=== PATIENT | female | born 1965 | race Caucasian/White ===

== ENCOUNTER 2017-01-11 08:06 | Emergency (ER) | payer BC ==
--- NOTE | 2017-01-11 08:39 | RAD ---
INDICATION: Cough, shortness of breath. COMPARISON: January 17, [address] TECHNIQUE: Dual energy PA and routine lateral views of the chest were obtained. REPORT: Mild bilateral reticulonodular pulmonary opacities. The lung volumes are within normal limits. Clear pleural spaces. Negative for pneumothorax. Upper normal heart size. Unremarkable central pulmonary vasculature. IMPRESSION: The constellation of findings suggests potential mild bronchopneumonia. Correlate with clinical assessment.
--- NOTE | 2017-01-11 09:06 | UC ---
Respiratory Complaint HPI - HPI Summary HPI Summary: SOB AND COUGH X 3 DAYS 51 Y/O FEMALE HX OF DM 2, HTN, MORBIDLY OBESE , 3 DAYS HX OF CHEST TIGHTNESS, COUGH, AND SOB, GETTING WORSE OVER THE PAST 2 DAYS , + FEVER, CHILLS, NO NASAL CONGEST AND NO SORE THROAT - History of Current Complaint Chief Complaint: UCRespiratory Stated Complaint: DIFFICULTY BREATHING Time Seen by Provider: 01/11/17 08:10 Hx Obtained From: Patient, Family/Stock Handler Hx Last Menstrual Period: 12/19/16 ?: No Onset/Duration: Gradual Onset, Lasting Days - 3, Worse Since - PAST 2 DAYS Timing: Constant Severity Initially: Moderate Severity Currently: Severe Character: Cough: Nonproductive Aggravating Factors: Exertion, Deep Breaths Alleviating Factors: Nothing Associated Signs And Symptoms: Positive: Dyspnea, Fever, Chills, Pleuritic Chest Pain, Calf Pain, Calf Swelling, Edema. Negative: Wheezing, Hemoptysis, Dizziness, URI, Nasal Congestion, Hoarseness, Sinus Discomfort - Risk Factors Cardiac Risk Factors: Hypertension, Diabetes - Allergies/Home Medications Allergies/Adverse Reactions: Allergies Allergy/AdvReac Type Severity Reaction Status Date / Time Sulfa Antibiotics Allergy Intermediate Hives Verified 01/11/17 08:16 Morphine Allergy Hives Verified 01/11/17 08:16 Home Medications: Home Medications Amitriptyline TAB* [Elavil TAB*] 50 mg PO BEDTIME 01/11/17 [History Confirmed ] Aspirin [Aspirin 81 MG TAB] 81 mg PO BEDTIME 01/11/17 [History Confirmed ] Calcium-Magnesium W/ Vitamin D [Calcium 600/Magnesium 300] 1 cap PO DAILY [History Confirmed 01/11/17] Gabapentin CAP(*) [Neurontin 300 CAP(*)] 600 mg PO 01/11/17 [History] Levothyroxine Sodium [Synthroid] 200 mcg PO DAILY 01/11/17 [History Confirmed ] Metoprolol Succinate [Toprol Xl] 50 mg PO DAILY 01/11/17 [History Confirmed ] [place]-3 Fatty Acids [Fish Oil] 1,000 mg PO DAILY 01/11/17 [History Confirmed ] Omeprazole CAP* [Prilosec CAP* 20 MG] 40 mg PO DAILY 01/11/17 [History Confirmed 01/11/17] Probiotic Product [Probiotic Daily] 1 cap PO DAILY 01/11/17 [History Confirmed 01/11/17] Vit D 1,500 units PO DAILY 01/11/17 [History] PMH/Surg Hx/FS Hx/Imm Hx Endocrine History Of: Reports: Diabetes - type 2, Thyroid Disease - hypo Cardiovascular History Of: Reports: Hypertension - on meds Denies: Cardiac Disorders, Pacemaker/ICD GI/ History Of: Denies: Renal Disease Neurological History Of: Reports: Migraine - only a few - Surgical History Surgical History: Yes Surgery Procedure, Year, and Place: Cholecystectomy , 1989, adi , Colon resection 2010-Crohn's. appendectomy, 1975. tonsilectomy 1965. L4-L5 - [facility]- CALCIUM DEPOSITS REMOVED. Lt 3RD TOE - PARTIAL APUTATED, RELEASED TENDONS IN NOE TOES. Rt KNEE REPLACEMENT. TEAR IN [place] - TREATED WITH DAILY CONTACTS UNTIL HEALED - Family History Known Family History: Positive: Diabetes - Social History Alcohol Use: Rare Alcohol Amount: holidays Substance Use Type: None, Prescribed Smoking Status (MU): Never Smoked Tobacco Review of Systems Constitutional: Fever, Chills, Fatigue Skin: Negative Eyes: Negative ENT: Negative Respiratory: Shortness Of Breath, Cough Cardiovascular: Chest Pain Gastrointestinal: Negative Genitourinary: Negative Neurological: Weakness All Other Systems Reviewed And Are Negative: Yes Physical Exam Triage Information Reviewed: Yes Appearance: Ill-Appearing, Obese Vital Signs: Initial Vital Signs Temp 98.4 F 01/11/17 08:17 Pulse 97 01/11/17 08:17 Resp 36 01/11/17 08:17 BP 154/58 01/11/17 08:17 Pulse Ox 93 01/11/17 08:17 Vital Signs Reviewed: Yes Eyes: Positive: Conjunctiva Clear ENT: Positive: Normal ENT inspection, Hearing grossly normal, Pharynx normal Neck exam: Normal Neck: Positive: Supple, Nontender, No Lymphadenopathy Respiratory: Positive: Chest non-tender, Respiratory distress, Decreased breath sounds, Accessory muscle use. Negative: Wheezing Cardiovascular: Positive: RRR Abdomen Description: Positive: Nontender. Negative: CVA Tenderness (R), CVA Tenderness (L), Distended, Guarding Bowel Sounds: Positive: Present Musculoskeletal Exam: Normal Musculoskeletal: Positive: Edema @ - BILATERAL LE Neurological: Positive: Lethargic Skin Exam: Normal Diagnostic Evaluation - Laboratory O2 Sat by Pulse Oximetry: 93 Diagnostic Studies Comment: EKG : NO ST ELEVATION. CR : ? BIBASALIR CONSOLIDATION Respiratory Course/Dx - Course Course Of Treatment: 51 Y/O FEMALE HX OF DM 2, HTN, MORBIDLY OBESE. + SOB X 3 DAYS. ? PNEUMONIA / PE. WILL HAVE HER GO TO [facility] ED FOR EVAL AND TX. SPOKE TO DR Leslie CASTAÑEDA ABOUT THE PT. PT. IS REFUSING TO TAKE THE AMBULANCE - Differential Dx/Diagnosis Provider Diagnoses: SOB Discharge - Discharge Plan Condition: Guarded Disposition: TRANS HIGHER LVL OF CARE FAC
[2017-01-11 09:11] VITALS: BP 148/66
== END 2017-01-11 09:07 | disposition short-term general hospital (02) ==
LOC: UCCORT 08:06
DX: R05 Cough (principal); R07.89 Other chest pain; Z88.5 Allergy status to narcotic agent; Z88.2 Allergy status to sulfonamides; E11.9 Type 2 diabetes mellitus without complications; E03.9 Hypothyroidism, unspecified; I10 Essential (primary) hypertension; E66.9 Obesity, unspecified; Z90.49 Acquired absence of other specified parts of digestive tract; Z89.422 Acquired absence of other left toe(s); Z96.651 Presence of right artificial knee joint
CPT/HCPCS: 71020; 93005; 99203; G0463

== ENCOUNTER 2017-02-06 11:56 | Emergency (ER) | payer BC ==
[2017-02-06 12:10] VITALS: BP 161/79
[2017-02-06] MEDS ORDERED: Albuterol/Ipratropium NEB.SOL* Albuterol 2.5 MG/Ipratropium 0.5 MG 3 ML INH ONE (13:32)
--- NOTE | 2017-02-06 13:39 | UC ---
Respiratory Complaint HPI - HPI Summary HPI Summary: PATIENT PRESENTS WITH DIFFICULTY BREATHING, SOB, COUGH AND FATIGUE X 4 WEEKS WITH WORSENING SYMPTOMS OVER 24 HOURS. SHE HAS O2 AT HOME ON 2L SINCE DISCHARGE FROM THE HOSPITAL IN LATE DECEMBER. SHE WAS SEND FROM TO ED FOR SOB AND PNA. SHE WAS IN THE ICU AND RECEIVED IV ABX. SHE HAS SINCE STOPPED THE ORAL ABX AND NOW THE [facility] ARE RETURNING. SHE ENDORSES HALLUCINATIONS INTERMITTENTLY UPON WAKENING AND IS EXTREMELY FATIGUED AND WILL FALL ASLEEP DURING CONVERSATION. SHE DENIES FEVER. SHE HAS APPT WITH PULMONOLOGY IN [place] IN 2 DAYS FOR BREATHING TESTS TO SEE IF SHE HAS COPD. SHE DOES NOT SMOKE. SHE IS MORBIDLY OBESE AND HAS DIFFICULTY WALKING. DENIES PAIN IN THE CHEST OR PREVIOUS DVT/PE. DENIES OCP'S OR RECENT TRAVEL. - History of Current Complaint Hx Obtained From: Patient Hx Last Menstrual Period: 3 weeks ago ?: No Onset/Duration: Gradual Onset Severity Initially: Severe Severity Currently: Severe Pain Intensity: 8 Pain Scale Used: 0-10 Numeric Character: Cough: Nonproductive Aggravating Factors: Allergens, Deep Breaths, Recumbent Position Alleviating Factors: Upright Position, Spontaneous Resolution Associated Signs And Symptoms: Positive: Dyspnea, URI - Risk Factors Pulmonary Embolism Risk Factors: Recent Bedrest Cardiac Risk Factors: Negative Pseudomonas Risk Factors: Repeated Antibiotics Past 3 Months Tuberculosis Risk Factors: Negative <Melodie Weathers - Last Filed: 02/06/17 14:55> <Iza Cortés - Last Filed: 02/07/17 08:10> - History of Current Complaint Chief Complaint: UCRespiratory Stated Complaint: DIFFICULTY BREATHING/WHEEZY Time Seen by Provider: 02/06/17 13:22 - Allergies/Home Medications Allergies/Adverse Reactions: Allergies Allergy/AdvReac Type Severity Reaction Status Date / Time Sulfa Antibiotics Allergy Intermediate Hives Verified 02/06/17 12:03 Morphine Allergy Hives Verified 02/06/17 12:03 PMH/Surg Hx/FS Hx/Imm Hx Previously Healthy: No - DIABETES, THYROID, MIGRAINE, HTH, PNA Endocrine History Of: Reports: Diabetes - type 2, Thyroid Disease - hypo Cardiovascular History Of: Reports: Hypertension - on meds Denies: Cardiac Disorders, Pacemaker/ICD GI/ History Of: Denies: Renal Disease Neurological History Of: Reports: Migraine - only a few - Surgical History Surgical History: Yes Surgery Procedure, Year, and Place: Cholecystectomy , 1989, adi , Colon resection 2011-Crohn's. appendectomy, 1975. tonsilectomy 1965. L4-L5 - [facility]- CALCIUM DEPOSITS REMOVED. Lt 3RD TOE - PARTIAL APUTATED, RELEASED TENDONS IN NOE TOES. Rt KNEE REPLACEMENT. TEAR IN [place] - TREATED WITH DAILY CONTACTS UNTIL HEALED - Family History Known Family History: Positive: Diabetes - Social History Occupation: Unemployed Lives: With Family Alcohol Use: Rare Alcohol Amount: holidays Substance Use Type: None, Prescribed Smoking Status (MU): Never Smoked Tobacco - Immunization History Hx Tetanus, Diphtheria Vaccination: No <Melodie Weathers - Last Filed: 02/06/17 14:55> Review of Systems Constitutional: Negative Skin: Negative Eyes: Negative Respiratory: Shortness Of Breath, Cough Cardiovascular: Negative Gastrointestinal: Negative Musculoskeletal: Negative Neurological: Negative Psychological: Negative All Other Systems Reviewed And Are Negative: Yes <Melodie Weathers - Last Filed: 02/06/17 14:55> Physical Exam Triage Information Reviewed: Yes Appearance: No Pain Distress, Ill-Appearing, Obese Vital Signs: Initial Vital Signs Temp 98.6 F 02/06/17 12:05 Pulse 87 02/06/17 12:05 Resp 20 02/06/17 12:05 BP 161/79 02/06/17 12:05 Pulse Ox 98 02/06/17 12:05 Vital Signs Reviewed: Yes Eye Exam: Normal Eyes: Positive: Conjunctiva Clear ENT: Positive: Pharynx normal Dental: Positive: Percussion Tenderness @ Neck exam: Normal Neck: Positive: Supple, Nontender, No Lymphadenopathy Respiratory: Positive: Chest non-tender, Wheezing Cardiovascular Exam: Normal Cardiovascular: Positive: RRR Musculoskeletal Exam: Normal Musculoskeletal: Positive: Strength Intact Neurological Exam: Normal Neurological: Positive: Alert Psychological Exam: Normal Psychological: Positive: Normal Response To Family, Age Appropriate Behavior <Melodie Weathers - Last Filed: 02/06/17 14:55> Vital Signs: Initial Vital Signs Temp 98.6 F 02/06/17 12:05 Pulse 87 02/06/17 12:05 Resp 20 02/06/17 12:05 BP 161/79 02/06/17 12:05 Pulse Ox 98 02/06/17 12:05 <Iza Cortés - Last Filed: 02/07/17 08:10> Diagnostic Evaluation - Laboratory O2 Sat by Pulse Oximetry: 97 <Melodie Weathers - Last Filed: 02/06/17 14:55> Respiratory Course/Dx - Course Course Of Treatment: PATIENT SENT TO [facility]. [facility] X 1. XRAY NEGATIVE FOR NEW FINDINGS. ENCOURAGED ALBUTEROL INHALER AND FOLLOW UP WITH JUNIOR WEB DEVELOPER [facility]. PATIENT OK WITH DISCHARGE. RECORDS OBTAINED FROM [place] ED. - Differential Dx/Diagnosis Differential Diagnosis/HQI/PQRI: Asthma, Bronchitis, CHF, Exacerbation Of COPD Provider Diagnoses: DYSPNEA <Melodie Weathers - Last Filed: 02/06/17 14:55> Discharge <Melodie Weathers - Last Filed: 02/06/17 14:55> <Iza Cortés - Last Filed: 02/07/17 08:10> - Discharge Plan Condition: Stable Disposition: HOME Prescriptions: Albuterol HFA INHALER* [Ventolin HFA Inhaler*] 1 puff INH Q4H PRN #1 mdi PRN Reason: Cough Patient Education Materials: Dyspnea (ED) Referrals: Martin Prince DO [Primary Care Provider] - Additional Instructions: albuterol inhaler as needed for shortness of breath. follow up with deputy director tomorrow continue to use o2 at night. return if symptoms worsen, or go to the ed. Attestation Statement User Type: Provider - I was available for consult. This patient was seen by the RICHIE. The patient was not presented to, seen by, or examined by me. -Dmitry <Iza Cortés - Last Filed: 02/07/17 08:10>
--- NOTE | 2017-02-06 14:25 | RAD ---
INDICATION: Cough. Recent pneumonia. Wheezing. COMPARISON: January 11, 2017 TECHNIQUE: PA and lateral dual-energy views were obtained. FINDINGS: Bones/Soft Tissues: There are no acute bony findings. Cardiomediastinal: The cardiomediastinal silhouette is normal. Lungs: There are no focal consolidative changes. There is mild increased interstitial markings slightly more prominent on the right than the left. There is very little interval change, however. Pleura: There are no pleural effusions. Other: None IMPRESSION: MILD COARSENING OF INTERSTITIUM, UNCHANGED. NO FOCAL CONSOLIDATION.
== END 2017-02-06 15:07 | disposition home or self-care (01) ==
LOC: UCCORT 11:56
DX: R06.00 Dyspnea, unspecified (principal); E11.9 Type 2 diabetes mellitus without complications; E03.9 Hypothyroidism, unspecified; I10 Essential (primary) hypertension; G43.909 Migraine, unspecified, not intractable, without status migrainosus; Z90.710 Acquired absence of both cervix and uterus; Z89.422 Acquired absence of other left toe(s); Z96.651 Presence of right artificial knee joint; E66.9 Obesity, unspecified; Z88.5 Allergy status to narcotic agent
CPT/HCPCS: 71020; 99213; A9270-GY; G0463

== ENCOUNTER 2017-03-07 10:10 | Emergency (ER) | payer BC ==
--- NOTE | 2017-03-07 10:35 | UC ---
Knee Pain HPI - HPI Summary HPI Summary: complaint of edema in both your legs and abdomen that increased over the last week more short of breath on exertion for 3 days coughing more frequently,worse at night sleeping more in recliner unable to lie down to sleep right knee edema and mild pain for the last 3 days- bending and straightening her knee is painful-pain not increased with ambulation - hx of right knee replacement dx with CHF approx 1 month ago started on lasix and hasn't been peeing normally can't weight herself d/t increasing weight sees Dr Davenport - History of Current Complaint Chief Complaint: UCLowerExtremity Stated Complaint: RIGHT LEG COMPLAINT Time Seen by Provider: 03/07/17 10:19 Hx Obtained From: Patient Hx Last Menstrual Period: 02/13/17 - Allergies/Home Medications Allergies/Adverse Reactions: Allergies Allergy/AdvReac Type Severity Reaction Status Date / Time Sulfa Antibiotics Allergy Intermediate Hives Verified 03/07/17 10:24 Morphine Allergy Hives Verified 03/07/17 10:24 PMH/Surg Hx/FS Hx/Imm Hx Previously Healthy: No - hx of lymphoma Endocrine History: Diabetes Cardiovascular History: Hypertension, Congestive Heart Failure - Surgical History Surgical History: Yes Surgery Procedure, Year, and Place: Cholecystectomy , 1989, adi , Colon resection 2010-Crohn's. appendectomy, 1975. tonsilectomy 1965. L4-L5 - [facility]- CALCIUM DEPOSITS REMOVED. Lt 3RD TOE - PARTIAL APUTATED, RELEASED TENDONS IN NOE TOES. Rt KNEE REPLACEMENT. TEAR IN [place] - TREATED WITH DAILY CONTACTS UNTIL HEALED - Family History Known Family History: Positive: Diabetes Negative: Cardiac Disease, Hypertension - Social History Occupation: Disabled Lives: With Family Alcohol Use: Rare Alcohol Amount: holidays Substance Use Type: None, Prescribed Smoking Status (MU): Never Smoked Tobacco - Immunization History Hx Tetanus, Diphtheria Vaccination: No Review of Systems Constitutional: Negative Skin: Negative Eyes: Negative ENT: Negative Respiratory: Shortness Of Breath, Cough Cardiovascular: Negative Gastrointestinal: Negative Genitourinary: Negative Motor: Negative Neurovascular: Negative Musculoskeletal: Negative Neurological: Negative Psychological: Negative All Other Systems Reviewed And Are Negative: Yes Physical Exam Triage Information Reviewed: Yes Appearance: No Pain Distress, Well-Nourished, Obese Vital Signs: Initial Vital Signs Temp 97.6 F 03/07/17 10:14 Pulse 89 03/07/17 10:14 Resp 20 03/07/17 10:14 BP 135/76 03/07/17 10:14 Pulse Ox 98 03/07/17 10:14 Vital Signs Reviewed: Yes Eyes: Positive: Conjunctiva Clear ENT: Positive: Pharynx normal, TMs normal Neck: Positive: Supple Respiratory: Positive: Lungs clear, Decreased breath sounds Cardiovascular: Positive: RRR, No Murmur, Pulses Normal Abdomen Description: Positive: Nontender, No Organomegaly, Soft, Distended Bowel Sounds: Positive: Present Musculoskeletal: Positive: Edema @ - throuhgout both legs Neurological: Positive: Alert Psychological Exam: Normal Skin Exam: Normal Knee Pain Course/Dx - Course Course Of Treatment: exam completed. pt with new dx of CHF in the last month- d /t shortness of breath and weight gain over the last week will send to higher level of care. ECG show no acute changes from previous ECG - Differential Dx/Diagnosis Differential Diagnosis/HQI/PQRI: Other - CHF, CO, [place] Provider Diagnoses: shortness of breath, CHF exacerbation - Physician Notifications Discussed Patient Care With: Camelia Kaiser Time Discussed With Above Provider: 11:11 Discharge - Discharge Plan Condition: Stable Disposition: TRANS HIGHER L OF CARE FAC
[2017-03-07 11:24] VITALS: BP 123/63
== END 2017-03-07 11:16 | disposition short-term general hospital (02) ==
LOC: UCCORT 10:10
DX: I50.9 Heart failure, unspecified (principal); I10 Essential (primary) hypertension; Z88.2 Allergy status to sulfonamides; Z88.5 Allergy status to narcotic agent
CPT/HCPCS: 93005; 99213; G0463

== ENCOUNTER 2017-03-12 07:53 | Observation (INO) | payer BC ==
[2017-03-12 11:58] LABS: Hematocrit 35 % (35-47); Hemoglobin 11.2 g/dl (12.0-16.0); Mean Corpuscular HGB Conc 32 g/dl (31-36); Mean Corpuscular Hemoglobin 29 pg (27-31); Mean Corpuscular Volume 92 fL (80-97); Mean Platelet Volume 9 um3 (7.4-10.4); Red Cell Distribution Width 15 % (10.5-15); White Blood Count 11.9 10^3/ul (3.5-10.8)
[2017-03-12 12:15] LABS: Albumin 3.4 g/dL (3.2-5.2); BUN/Creatinine Ratio 22.1 (8-20); C Reactive Protein 46.94 mg/L (< 5.00); Calcium 8.8 mg/dL (8.6-10.3); EGFR African American 79.1 (>60); EGFR Non-African American 61.5 (>60); Globulin 3.1 g/dL (2-4); Magnesium 1.9 mg/dL (1.9-2.7); Potassium 3.8 mmol/L (3.5-5.0); Total Bilirubin 0.4 mg/dL (0.2-1.0); Total Protein 6.5 g/dL (6.4-8.9)
[2017-03-12 12:16] LABS: Troponin I 0.01 ng/mL (<0.04)
[2017-03-12 12:22] LABS: Add Diff/Slide Review? Slide Review Added; Comments Flag Yes
[2017-03-12 12:46] LABS: TSH (Thyroid Stimulating Horm) 6.3 mcIU/mL (0.34-5.60)
[2017-03-12 12:47] LABS: Urine Bacteria 1+ (Absent); Urine Bilirubin Negative (Negative); Urine Glucose Negative (Negative); Urine Nitrite Negative (Negative)
[2017-03-12 13:06] LABS: Benzodiazepine Urine Screen None Detected (None Detect)
[2017-03-12] MEDS ORDERED: Albuterol HFA INHALER* 8 gm MDI INH PRN (14:19)
[2017-03-12] MEDS ORDERED: oxyCODONE/Acetamin 5/325 MG* TAB PO PRN (14:33)
[2017-03-12] MEDS ORDERED: Iodixanol* (CONTRAST) 320 MG/ML 100 ML SDV IV ONE (16:08)
--- NOTE | 2017-03-12 16:15 | ED ---
Sandie Lopez Auryana, scribed for Eliseo Benz MD on 03/12/17 at 0919 . Complex/Multi-Sys Presentation - HPI Summary HPI Summary: 52 year old female presents with leg weakness stating 2 months ago that has gotten progressively worse. Patient reports 2x falls this week (1st episode on Tuesday) with bruising on the right leg, bilateral leg pain, and low back pain. She also has chills, cough, and diffuse edema. No fever. reports that she was seen at [facility] for falling episodes - reports no significant signs of infection in blood work. PMHx is significant for CHF (x2 over the last 2 months - Lasix), DM, lymphoma, Crohns, right knee replacement, and chronic pain. Patient has numerous specialty physicians - Dr. Davenport (PCP), Dr. Samuels (neurology), Dr. Sargent (oncology), Dr. Doyle (Infectious disease) , Dr. Vega (ENT). - History Of Current Complaint Chief Complaint: EDWeakness Time Seen by Provider: 03/12/17 08:46 Hx Obtained From: Patient, Family/Computer Forensics Investigator - Onset/Duration: Gradual Onset, Lasting Days - 7, Still Present Timing: Constant Severity Currently: Moderate Severity Initially: Moderate Location: Pain At: - low back and right leg Associated Signs And Symptoms: Positive: Weakness, Cough, Back Pain - low, Other - bruising, diffuse emeda, chills,. Negative: Fever - Allergies/Home Medications Allergies/Adverse Reactions: Allergies Allergy/AdvReac Type Severity Reaction Status Date / Time Sulfa Antibiotics Allergy Intermediate Hives Verified 03/12/17 08:04 Morphine Allergy Hives Verified 03/12/17 08:04 Home Medications: Home Medications Furosemide TAB* [Lasix TAB*] 40 mg PO DAILY 03/12/17 [History Confirmed 03/12/17 ] Hydrochlorothiazide [Hydrochlorothiazide] 25 mg PO DAILY 03/12/17 [History Confirmed 03/12/17] Rivaroxaban TAB(*) [Xarelto 20 mg] 20 mg PO DAILY 03/12/17 [History Confirmed ] azaTHIOprine TAB(*) [Imuran TAB(*)] 50 mg PO DAILY 03/12/17 [History Confirmed 03/12/17] PMH/Surg Hx/FS Hx/Imm Hx Endocrine/Hematology History: Reports: Hx Diabetes - type 2, Hx Thyroid Disease - hypo Cardiovascular History: Reports: Hx Hypertension - on meds Denies: Hx Pacemaker/ICD, Other Cardiovascular Problems/Disorders Respiratory History: Denies: Other Respiratory Problems/Disorders GI History: Reports: Hx Crohn's Disease Denies: Other GI Disorders History: Denies: Hx Renal Disease Musculoskeletal History: Reports: Hx Arthritis - hands, toes, hips, Hx Rheumatoid Arthritis - Has had Remicaide 06/2014 Sensory History: Reports: Hx Contacts or Glasses - glasses to read Denies: Hx Hearing Aid Opthamlomology History: Reports: Hx Contacts or Glasses - glasses to read Neurological History: Reports: Hx Migraine - only a few, Hx Nerve Disease - neuopathy feet and hands up to knees Denies: Other Neuro Impairments/Disorders Psychiatric History: Denies: Hx Panic Disorder - Surgical History Surgery Procedure, Year, and Place: Cholecystectomy , 1989, adi , Colon resection 2010-Crohn's. appendectomy, 1975. tonsilectomy 1965. L4-L5 - [place]- CALCIUM DEPOSITS REMOVED. Lt 3RD TOE - PARTIAL APUTATED, RELEASED TENDONS IN NOE TOES. Rt KNEE REPLACEMENT. 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 body- [facility] Denies: Traveled Outside the in Last 30 Days - Family History Known Family History: Positive: Diabetes - Social History Occupation: Disabled Lives: With Family Alcohol Use: Rare Alcohol Amount: holidays Substance Use Type: Reports: None, Prescribed Smoking Status (MU): Never Smoked Tobacco Review of Systems Positive: Chills. Negative: Fever Eyes: Negative ENT: Negative Cardiovascular: Negative Positive: Cough Gastrointestinal: Negative Genitourinary: Negative Positive: Myalgia - bilateral leg pain, Edema - diffuse, Other - low back pain Positive: Bruising Positive: Weakness - leg Psychological: Normal All Other Systems Reviewed And Are Negative: Yes Physical Exam Triage Information Reviewed: Yes Vital Signs On Initial Exam: Initial Vitals Temp Pulse Resp BP Pulse Ox 97.5 F 76 14 176/99 100 03/12/17 07:56 03/12/17 07:56 03/12/17 07:56 03/12/17 07:56 03/12/17 07:56 Vital Signs Reviewed: Yes Appearance: Positive: Well-Appearing, No Pain Distress, Obese Skin: Positive: Warm, Skin Color Reflects Adequate Perfusion, Dry, Other - ecchymosis over the lower extremity Head/Face: Positive: Normal Head/Face Inspection Eyes: Positive: Normal, Other: - prefered to keep eyes closed but will respond to voice ENT: Positive: Normal ENT inspection Neck: Positive: Supple, Nontender Respiratory/Lung Sounds: Positive: Clear to Auscultation, Breath Sounds Present. Negative: Rales, Rhonchi, Wheezes Cardiovascular: Positive: RRR Musculoskeletal: Positive: Normal, Strength/ROM Intact Neurological: Positive: Normal, Sensory/Motor Intact Psychiatric: Positive: Normal, Affect/Mood Appropriate Diagnostics - Vital Signs Vital Signs Temp Pulse Resp BP Pulse Ox 03/12/17 07:56 97.5 F 76 15 176/99 100 - Laboratory Lab Results: Lab Results 03/12/17 03/12/17 03/12/17 Range/Units 11:45 11:45 11:45 WBC 11.9 H (3.5-10.8) 10^3/ul RBC 3.80 L (4.0-5.4) 10^6/ul Hgb 11.2 L (12.0-16.0) g/dl Hct 35 (35-47) % MCV 92 (80-97) fL MCH 29 (27-31) pg MCHC 32 (31-36) g/dl RDW 15 (10.5-15) % Plt Count 282 (150-450) 10^3/ul MPV 9 (7.4-10.4) um3 Neut % (Auto) 77.3 (38-83) % Lymph % (Auto) 12.6 L (25-47) % Ray % (Auto) 3.0 (1-9) % Eos % (Auto) 5.6 (0-6) % Baso % (Auto) 1.5 (0-2) % Absolute Neuts (auto) 9.2 H (1.5-7.7) 10^3/ul Absolute Lymphs (auto) 1.5 (1.0-4.8) 10^3/ul Absolute Monos (auto) 0.4 (0-0.8) 10^3/ul Absolute Eos (auto) 0.7 H (0-0.6) 10^3/ul Absolute Basos (auto) 0.2 (0-0.2) 10^3/ul Absolute Nucleated RBC 0.01 10^3/ul Nucleated RBC % 0.1 INR (Anticoag Therapy) 1.25 H (0.89-1.11) Sodium 133 (133-145) mmol/L Potassium 3.8 (3.5-5.0) mmol/L Chloride 95 L (101-111) mmol/L Carbon Dioxide 29 (22-32) mmol/L Anion Gap 9 (2-11) mmol/L BUN 21 (6-24) mg/dL Creatinine 0.95 (0.51-0.95) mg/dL Est GFR ( Amer) 79.1 (>60) Est GFR (Non-Af Amer) 61.5 (>60) BUN/Creatinine Ratio 22.1 H (8-20) Glucose 151 H (70-100) mg/dL Lactic Acid (0.5-2.0) mmol/L Calcium 8.8 (8.6-10.3) mg/dL Magnesium 1.9 (1.9-2.7) mg/dL Total Bilirubin 0.40 (0.2-1.0) mg/dL AST 16 (13-39) U/L ALT 17 (7-52) U/L Alkaline Phosphatase 49 (34-104) U/L Troponin I 0.01 (<0.04) ng/mL C-Reactive Protein 46.94 H (< 5.00) mg/L Total Protein 6.5 (6.4-8.9) g/dL Albumin 3.4 (3.2-5.2) g/dL Globulin 3.1 (2-4) g/dL Albumin/Globulin Ratio 1.1 (1-3) TSH 6.30 H (0.34-5.60) mcIU/mL Urine Color Urine Appearance Urine pH (5-9) Ur Specific Driscoll (1.010-1.030) Urine Protein (Negative) Urine Ketones (Negative) Urine Blood (Negative) Urine Nitrate (Negative) Urine Bilirubin (Negative) Urine Urobilinogen (Negative) Ur Leukocyte Esterase (Negative) Urine WBC (Auto) (Absent) Urine RBC (Auto) (Absent) Ur Squamous Epith Cells (Absent) Urine Bacteria (Absent) Urine Glucose (Negative) Urine Opiates Screen (None Detect) Ur Barbiturates Screen (None Detect) Ur Phencyclidine Scrn (None Detect) Ur Amphetamines Screen (None Detect) U Benzodiazepines Scrn (None Detect) Urine Cocaine Screen (None Detect) U Cannabinoids Screen (None Detect) 03/12/17 03/12/17 03/12/17 Range/Units 11:45 12:06 12:06 WBC (3.5-10.8) 10^3/ul RBC (4.0-5.4) 10^6/ul Hgb (12.0-16.0) g/dl Hct (35-47) % MCV (80-97) fL MCH (27-31) pg MCHC (31-36) g/dl RDW (10.5-15) % Plt Count (150-450) 10^3/ul MPV (7.4-10.4) um3 Neut % (Auto) (38-83) % Lymph % (Auto) (25-47) % Ray % (Auto) (1-9) % Eos % (Auto) (0-6) % Baso % (Auto) (0-2) % Absolute Neuts (auto) (1.5-7.7) 10^3/ul Absolute Lymphs (auto) (1.0-4.8) 10^3/ul Absolute Monos (auto) (0-0.8) 10^3/ul Absolute Eos (auto) (0-0.6) 10^3/ul Absolute Basos (auto) (0-0.2) 10^3/ul Absolute Nucleated RBC 10^3/ul Nucleated RBC % INR (Anticoag Therapy) (0.89-1.11) Sodium (133-145) mmol/L Potassium (3.5-5.0) mmol/L Chloride (101-111) mmol/L Carbon Dioxide (22-32) mmol/L Anion Gap (2-11) mmol/L BUN (6-24) mg/dL Creatinine (0.51-0.95) mg/dL Est GFR ( Amer) (>60) Est GFR (Non-Af Amer) (>60) BUN/Creatinine Ratio (8-20) Glucose (70-100) mg/dL Lactic Acid 2.2 H* (0.5-2.0) mmol/L Calcium (8.6-10.3) mg/dL Magnesium (1.9-2.7) mg/dL Total Bilirubin (0.2-1.0) mg/dL AST (13-39) U/L ALT (7-52) U/L Alkaline Phosphatase (34-104) U/L Troponin I (<0.04) ng/mL C-Reactive Protein (< 5.00) mg/L Total Protein (6.4-8.9) g/dL Albumin (3.2-5.2) g/dL Globulin (2-4) g/dL Albumin/Globulin Ratio (1-3) TSH (0.34-5.60) mcIU/mL Urine Color Yellow Urine Appearance Clear Urine pH 6.0 (5-9) Ur Specific Driscoll 1.018 (1.010-1.030) Urine Protein 1+(30 mg/dl) H (Negative) Urine Ketones Negative (Negative) Urine Blood Negative (Negative) Urine Nitrate Negative (Negative) Urine Bilirubin Negative (Negative) Urine Urobilinogen Negative (Negative) Ur Leukocyte Esterase Trace H (Negative) Urine WBC (Auto) Trace(0-5/hpf) (Absent) Urine RBC (Auto) 1+(3-5/hpf) H (Absent) Ur Squamous Epith Cells Present H (Absent) Urine Bacteria 1+ H (Absent) Urine Glucose Negative (Negative) Urine Opiates Screen None detected (None Detect) Ur Barbiturates Screen None detected (None Detect) Ur Phencyclidine Scrn None detected (None Detect) Ur Amphetamines Screen None detected (None Detect) U Benzodiazepines Scrn None detected (None Detect) Urine Cocaine Screen None detected (None Detect) U Cannabinoids Screen None detected (None Detect) Result Diagrams: 03/12/17 11:45 03/12/17 11:45 Lab Statement: Any lab studies that have been ordered have been reviewed, and results considered in the medical decision making process. Re-Evaluation - Re-Evaluation First Eval Re-Evaluation Time: 13:18 - DICUSSED RESULTS AND DECISION TO ADMIT Complex Multi-Symp Course/Dx Course Of Treatment: Ms. Cevallos arrives C/O increased weakness and specifically her legs giving out for the last several days. She has fallen several times. She had bruises all over her legs. Her labs were in her normal range and I asked the hospitalists to evaulate her. - Diagnoses Provider Diagnoses: Weakness - Physician Notifications Discussed Care Of Patient With: Meg Montes De Oca - hospitalist Time Discussed With Above Provider: 13:13 Discharge - Discharge Plan Condition: Stable Disposition: ADMITTED TO [facility] documentation as recorded by the Sandie tamayo Auryana accurately reflects the service I personally performed and the decisions made by me, Eliseo Benz MD.
[2017-03-12] MEDS: Gabapentin CAP(*) 300 MG PO SCH ×2 (16:29→21:28)
[2017-03-12 16:41] LABS: T4 11.65 mcg/mL (6.09-12.23)
[2017-03-12] MEDS ORDERED: Cyclobenzaprine TAB* 10 MG PO PRN (16:50)
--- NOTE | 2017-03-12 17:19 | RAD ---
INDICATION: Unexplained chronic fevers, history of lymphoma. COMPARISON: Comparison is made with a prior CT of the abdomen and pelvis from January 17, 2015. TECHNIQUE: A CT scan of the chest, abdomen and pelvis was performed with intravenous and oral contrast following intravenous injection of 141 ml of Visipaque 320 nonionic contrast. Contiguous axial sections were obtained from the lung apices through the symphysis pubis. Images were reconstructed in the coronal and sagittal planes. The exam is limited due to the patient's body habitus. FINDINGS: There are small patchy infiltrates present in the right upper and lower lobe suspicious for pneumonia. The lungs are otherwise clear. No pleural effusion is seen. No significant enlarged mediastinal or hilar lymph nodes are seen. No enlarged axillary lymph nodes are seen. The heart is within normal limits in size. No pericardial effusion is present. The thoracic aorta is normal in caliber. The liver is moderately enlarged and unchanged from the prior exam. The liver is decreased in attenuation consistent with fatty infiltration. No significant focal hepatic abnormality is seen. The patient is status post cholecystectomy. The spleen is within normal limits in size without focal abnormality. The pancreas appears to be within normal limits. The kidneys and adrenal glands are normal in size. There is no evidence for hydronephrosis. No significant focal renal abnormality is seen. The aorta is normal in caliber and demonstrates homogeneous contrast opacification. No significant enlarged retroperitoneal lymph nodes are seen. The stomach, small and large bowel appear nondistended. There is increased soft tissue density in the distal ascending colon at the level of the hepatic flexure which likely represents adherent stool although a mass cannot be excluded. The patient is status post appendectomy by history. There is moderate descending and sigmoid diverticulosis without evidence for diverticulitis or colitis. There is a small periumbilical hernia containing fat. The uterus is anteverted and mildly enlarged. No free intraperitoneal air or fluid is seen. No significant focal osseous abnormality is seen. IMPRESSION: 1. SMALL PATCHY RIGHT UPPER AND LOWER LOBE INFILTRATES SUSPICIOUS FOR PNEUMONIA. 2. INCREASED SOFT TISSUE DENSITY PRESENT WITHIN THE ASCENDING COLON AT THE HEPATIC FLEXURE LIKELY REPRESENTING ADHERENT STOOL ALTHOUGH A MASS CANNOT BE EXCLUDED. RECOMMEND COLONOSCOPY FOR FURTHER EVALUATION. 3. NO EVIDENCE FOR RECURRENT LYMPHOMA. 4. HEPATOMEGALY AND HEPATIC STEATOSIS, UNCHANGED.
--- NOTE | 2017-03-12 17:55 | HP ---
CC: Dr. Prince; Alex Doyle MD; Lady Sargent MD * HOSPITAL MEDICINE HISTORY AND PHYSICAL: DATE OF ADMISSION: 03/12/17 PRIMARY CARE PHYSICIAN: Dr. Prince. ATTENDING PHYSICIAN: Dr. Mingo Onofre *(dictation provided by Myrna Montgomery NP). CHIEF COMPLAINT: Fall with bilateral lower extremity pain. HISTORY OF PRESENT ILLNESS: Ms. Cevallos is a 52-year-old female with a complicated past medical history including recent diagnosis of CHF and paroxysmal afib, crohn's disease, right total knee replacement 6 years ago, complicated MRSA infection related to toe amputation approximately 3 to 4 years ago, and 4 episodes of cancer including uterine, cervical, fallopian tube and lymphoma who presents to the hospital today with concern for fall and bilateral lower extremity pain. Ms. Cevallos has had worsening health issues over the past 6 months to a year. She reports having fevers every other day for approximately a year. As of this year, she has had 3 hospitalizations at [place], 1 for pneumonia and 2 for CHF. During one of these hospitalizations, she was diagnosed with AFib and is now on Xarelto. She was last at [place] on Tuesday of this week where she was treated for CHF and AFib. She returned home on Tuesday and fell a few hours after getting home. She called EMS and they helped her up off the floor, but she did not want to go back to the hospital. On Tuesday, she was at Dr. Prince's office for evaluation and he suggested that she needed to be evaluated at the hospital as she was unsafe at home. The patient did go to in [place], but she was discharged from the emergency room with suspicion for lower extremity sciatica only. For her ongoing fevers, the patient has been seen by Dr. Alex Doyle from Infectious Diseases in February. He recommended that the patient have CT of chest, abdomen, and pelvis which has still not been done pending insurance approval. She also followed up with Dr. Lady Sargent who concurred that the patient would benefit from a chest, abdomen, and pelvis CT. There was also some question of whether or not the patient had lymphoma and what her treatment course had been and efforts are under way to try to clarify her history of cancer and treatment thereof. The patient has also seen digital communications manager in [place] for concern of obstructive sleep apnea and was started on BiPAP, but she has not had that delivered to her home yet. She does have a history of Crohn's disease, but states that is well controlled on her current regimen of Imuran. With her new diagnosis of CHF, she has been on Lasix and states she has had a 14-pound weight loss, but she still has some edema in bilateral lower extremities. She did have an echocardiogram per her report at [place], but she is unclear what those results were. Ms. Cevallos states that on getting up today at about 5:30 a.m., she went to reach for her walker and she had felt both of her legs buckle and this was similar to a previous episode where she fell earlier this week. She complains of pain radiating down bilateral lower extremities, right greater than left. She has no pain to the knees. In the emergency room, she has a very mild elevation in her white blood cell count to 11.9. Her CRP is 46.94. On review of the record , the patient has had an elevated CRP at about 50 going back to 2015. Her lactic acid is 2.2. Her urine shows trace leukocyte esterase only. Based on Ms. Cevallos's weakness and falls, Hospital Medicine was called regarding admission. PAST MEDICAL HISTORY: 1. Right total knee replacement approximately 6 years ago at [facility]. 2. New diagnosis of CHF, on Lasix. 3. History of complicated MRSA infection after toe amputation approximately 3 to 4 years ago at [facility]. 4. Neuropathy, status post chemotherapy. 5. History of uterine cancer. 6. History of cervical cancer. 7. 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 8. History of questionable lymphoma. 9. Crohn's disease. MEDICATIONS: 1. Calcium with magnesium 1 cap p.o. daily. 2. [place]-3 fatty acid 1000 mg p.o. daily. 3. Probiotic 1 cap p.o. daily. 4. Vitamin D 1500 units p.o. daily. 5. Albuterol inhaler 1 puff inhaled q.4 hours p.r.n. 6. Amitriptyline 50 mg p.o. at bedtime. 7. Aspirin 81 mg p.o. daily. 8. Furosemide 40 mg p.o. daily. 9. Gabapentin 600 mg p.o. 4 times a day. 10. Hydrochlorothiazide 25 mg p.o. daily. 11. Levothyroxine 225 mcg p.o. daily. 12. Metoprolol succinate 50 mg p.o. daily. 13. Rivaroxaban 20 mg p.o. daily. 14. Azathioprine 50 mg p.o. daily. ALLERGIES: SULFA ANTIBIOTICS and MORPHINE. FAMILY HISTORY: Will be added as an addendum. SOCIAL HISTORY: No report of alcohol, tobacco, or drug use. She lives with her who is the healthcare proxy. REVIEW OF SYSTEMS: Constitutional: Positive for fevers every other day. The patient states they usually go to about 102. She has lost 14 pounds since starting on Lasix. Cardiac: No chest pain. Positive for lower extremity edema. Respiratory: Positive for intermittent cough. Positive for dyspnea on exertion which the patient states seems to have been better since starting Lasix , but the disagrees and states she is quite dyspneic with any activity. GI: No nausea. No vomiting. No diarrhea. No abdominal pain. She states her Crohn's symptoms are well controlled on Imuran. : No gross hematuria or dysuria. Neuro: No focal weakness or sensory loss. Eyes: No visual complaints. ENT: No dysphagia. Musculoskeletal: Positive for pain radiating from the low back into bilateral lower extremities, right greater than left. No knee pain. Skin: No rashes or lesions. Psych: No depression or anxiety. PHYSICAL EXAMINATION GENERAL: Ms. Cevallos is a morbidly obese female lying on her side in the stretcher. She is in no acute distress. VITAL SIGNS: Blood pressure 176/99, heart rate 76, respiratory rate 15, temperature 97.5, O2 sat 100% on room air. LUNGS: Clear to auscultation bilaterally. No accessory muscle use and good aeration. HEART: S1, S2. No murmur, rub, or gallop and regular. ABDOMEN: Soft, nontender with bowel sounds positive x4. EXTREMITIES: No cyanosis. Positive for edema. It is hard to characterize based on her significant morbid obesity with BMI of 65. NEUROLOGIC: She is alert. She is oriented x3. She moves all extremities equally. There is no facial asymmetry or focal weakness. Extraocular movements are intact. SKIN: Intact. LABORATORY DATA AND DIAGNOSTIC STUDIES: WBC 11.9, hemoglobin 11.2, hematocrit 35, platelet count 282,000. INR 1.25. Sodium 133, potassium 3.8, chloride 95, serum bicarbonate 29, BUN 21, creatinine 0.95, glucose 151, lactic acid 2.2. CRP 46.94. TSH 6.30. Urine shows 1+ leukocyte esterase and 1+ bacteria. ASSESSMENT: Ms. Cevallos is a 52-year-old female with a complicated past medical history including congestive heart failure, recently started on Lasix; atrial fibrillation; complicated MRSA infection after toe amputation about 3 years ago ; right total knee replacement; and cancer with possible diagnosis of lymphoma and Crohn's disease who presents today to the hospital with concern for falls at home. Our plan is for observation in the hospital for the followin. Falls: It is not quite what is driving her falls at this point. She seems to have had some sort of chronic process going on with fevers for over a year intermittently. She also has had three recent admissions to [facility] with congestive heart failure, atrial fibrillation, and pneumonia. She does have a history of MRSA infection with sepsis and prolonged hospitalization. She has a history of a right total knee replacement, but there is no evidence that that is red or warm today on examination. She does have a mildly positive UA but she denies dysuria. I am suspicious taht her falls are simply related to morbid obesity with chronic bilateral lower extremity neuropathy. For now, our workup will be as denoted below. 2. Fevers: The patient has seen Dr. Doyle and Dr. Sargent in followup and they both recommended CT chest, abdomen, and pelvis which I have ordered for today. The patient has a very mildly positive UA and no report of dysuria. I do not plan to start antibiotics, but we will monitor cultures. The patient also has a chronically elevated CRP which could be indicative of a low-grade infection or an autoimmune process such as her Crohn's disease. 3. Congestive heart failure: Plan to request the records from [place] regarding echocardiograms performed there. Plan to continue her Lasix and hydrochlorothiazide at routine home dose. She does not have any evidence of pulmonary edema on examination. 4. Crohn's disease: Continue Imuran. No evidence of acute exacerbation. 5. Neuropathy: Continue gabapentin. 6. Hypertension: Continue metoprolol. 7. Hypothyroidism: Continue levothyroxine, but we will add on a T4 as the TSH is elevated. The patient states that she recently had her dose decreased from 275 mcg to 225 mcg. 8. Atrial fibrillation: The patient is in normal sinus rhythm now on exam. Plan to continue her metoprolol and rivaroxaban. 9. DVT prophylaxis with heparin subcu. 10. Disposition to the medical floor. TIME SPENT: Approximately 75 minutes were spent on the admission of this patient, more than half time spent with the patient at the bedside reviewing the events leading up to this hospitalization, performing the physical examination, and reviewing the plan of care. MYRNA MONTGOMERY NP [id number]/CPS #: [id number] DACIA
--- NOTE | 2017-03-12 18:16 | RAD ---
INDICATION: Low back pain. COMPARISON: Comparison is made with a prior MRI of the lumbar spine from December 10, 2016. TECHNIQUE: Contiguous axial sections were obtained beginning above the T12 vertebra and continuing through the L5-S1 disc space. Images were reconstructed in the sagittal and coronal planes. The exam is extremely limited due to the patient's body habitus. FINDINGS: There is mild retrolisthesis of L5 relative to S1 of approximately 5 mm which is unchanged. The vertebra are otherwise in normal alignment. No fracture is seen. At the T12-L1 level there is posterior endplate spurring associated with a small to moderate size disc protrusion which is posterior lateral to the right side which appears unchanged from the prior MRI study. There is mild neural foraminal narrowing on the right side. At the L1-L2 level there is no evidence for disc bulge or herniation. No spinal canal or neural foraminal narrowing is noted. At the L2-L3 level there is posterior endplate spurring associated with a [id number] broad-based disc bulge which likely causes mild to moderate spinal canal narrowing although the anatomy is not well seen in partially obscured due to artifact. There appears to be mild bilateral neural foraminal narrowing. At the L3-L4 level there is no gross evidence for disc bulge or herniation no spinal canal or neural foraminal narrowing is seen. At the L4-L5 level there is suggestion of a mild broad-based disc bulge and moderate hypertrophic changes within the facet joints. The anatomy of the spinal canal is not well-defined due to artifact. At the L5-S1 level there is posterolateral uncinate process spurring toward the right side associated with a disc protrusion which again is not well-defined due to artifact. IMPRESSION: EXTREMELY LIMITED STUDY. MILD TO MODERATE LUMBAR SPONDYLOSIS. IF THE PATIENT'S SYMPTOMS PERSIST RECOMMEND AN MRI OF THE LUMBAR SPINE FOR FURTHER EVALUATION.
[2017-03-12] MEDS: Amitriptyline TAB* 50 MG PO SCH (21:29)
[2017-03-12] MEDS: Heparin VIAL(*) 5000 UNITS/ML VIAL (FIVE THOUSAND) SUBCUT SCH (21:29)
[2017-03-13] MEDS: oxyCODONE/Acetamin 5/325 MG* TAB PO PRN ×3 (00:15→20:10)
[2017-03-13] MEDS: Levothyroxine TAB* 75 MCG TAB PO SCH (05:35)
[2017-03-13] MEDS: Heparin VIAL(*) 5000 UNITS/ML VIAL (FIVE THOUSAND) SUBCUT SCH ×3 (05:36→22:14)
[2017-03-13 06:16] LABS: Hematocrit 34 % (35-47); Hemoglobin 10.9 g/dl (12.0-16.0); Mean Corpuscular HGB Conc 32 g/dl (31-36); Mean Corpuscular Hemoglobin 31 pg (27-31); Mean Corpuscular Volume 96 fL (80-97); Mean Platelet Volume 9 um3 (7.4-10.4); Red Blood Count 3.51 10^6/ul (4.0-5.4); Red Cell Distribution Width 14 % (10.5-15); White Blood Count 9.9 10^3/ul (3.5-10.8)
--- NOTE | 2017-03-13 07:13 | RAD ---
INDICATION: Right lower extremity swelling. COMPARISON: There are no prior studies available for comparison. TECHNIQUE: Multiple real-time, color flow and Doppler tracings of the right lower extremity were obtained. FINDINGS: The common femoral, femoral, profunda femoral and popliteal veins all demonstrate normal compressibility, augmentation with compression and phasic response with respiration. Only one posterior tibial vein was visualized in the calf and was within normal limits. The peroneal veins were not visualized likely due to the patient's body habitus. IMPRESSION: LIMITED EXAM OF THE CALF, NO EVIDENCE FOR DEEP VENOUS THROMBOSIS.
--- NOTE | 2017-03-13 08:06 | PN ---
Subjective Date of Service: 03/13/17 Interval History: Ms. Cevallos reports pain to her left calf this morning. She also reports being very tired and looks to be falling asleep during my conversation with her. She did use the bipap last night and tolerated it well. She denies other complaint this morning including chest pain, SOB, nausea, or abdominal pain. Objective Active Medications: Albuterol (Ventolin Hfa Inhaler*) 1 puff INH Q4H PRN Amitriptyline HCl (Elavil Tab*) 50 mg PO BEDTIME [facility] Aspirin (Aspirin Ec Low Dose*) 81 mg PO DAILY [facility] Azathioprine (Imuran Tab(*)) 50 mg PO DAILY [facility] Cyclobenzaprine HCl (Flexeril Tab*) 5 mg PO TID PRN Furosemide (Lasix Tab*) 40 mg PO DAILY [facility] Gabapentin (Neurontin Cap(*)) 600 mg PO QID [facility] Heparin Sodium (Porcine) (Heparin Vial(*)) 5,000 units SUBCUT Q8HR [facility] Hydrochlorothiazide (Hydrodiuril Tab*) 25 mg PO DAILY [facility] Levothyroxine Sodium (Synthroid Tab*) 225 mcg PO 0600 [facility] Metoprolol Succinate (Toprol Xl Tab*) 50 mg PO DAILY [facility] Oxycodone/Acetaminophen (Percocet 5/325 Tab*) 1 tab PO Q4H PRN Oxycodone/Acetaminophen (Percocet 5/325 Tab*) 2 tab PO Q4H PRN Rivaroxaban (Xarelto (*)) 20 mg PO DAILY [facility] Vital Signs 03/12/17 03/12/17 03/12/17 14:29 14:31 16:29 Temperature 99.8 F 98.1 F Pulse Rate 84 88 Respiratory 20 16 18 Rate Blood Pressure 138/64 132/71 (mmHg) O2 Sat by Pulse 94 Oximetry 03/12/17 03/12/17 03/12/17 18:29 19:50 20:19 Temperature 97.7 F Pulse Rate 79 Respiratory 16 16 18 Rate Blood Pressure 103/66 (mmHg) O2 Sat by Pulse 93 Oximetry 03/12/17 03/12/17 03/12/17 21:28 23:28 23:41 Temperature 97.4 F Pulse Rate 78 Respiratory 18 20 16 Rate Blood Pressure 153/90 (mmHg) O2 Sat by Pulse 99 Oximetry 03/13/17 03/13/1717 00:15 02:15 04:35 Temperature 96.8 F Pulse Rate 66 Respiratory 18 18 16 Rate Blood Pressure 141/42 (mmHg) O2 Sat by Pulse 96 Oximetry Oxygen Devices in Use Now: None Appearance: Female lying in bed in NAD Eyes: No Scleral Icterus Ears/Nose/Mouth/Throat: Mucous Membranes Moist Neck: Trachea Midline Respiratory: Symmetrical Chest Expansion and Respiratory Effort, Clear to Auscultation Cardiovascular: NL Sounds; No Murmurs; No JVD, No Edema Abdominal: NL Sounds; No Tenderness; No Distention Lymphatic: No Cervical Adenopathy Extremities: - - swollen bilateral LEs, morbidly obese Skin: No Rash or Ulcers Neurological: Alert and Oriented x 3, NL Muscle Strength and Tone Nutrition: Taking PO's Result Diagrams: 03/13/17 05:30 03/12/17 11:45 Additional Lab and Data: Lab Results 03/12/17 03/12/17 03/12/17 Range/Units 11:45 11:45 11:45 WBC 11.9 H (3.5-10.8) 10^3/ul RBC 3.80 L (4.0-5.4) 10^6/ul Hgb 11.2 L (12.0-16.0) g/dl Hct 35 (35-47) % MCV 92 (80-97) fL MCH 29 (27-31) pg MCHC 32 (31-36) g/dl RDW 15 (10.5-15) % Plt Count 282 (150-450) 10^3/ul MPV 9 (7.4-10.4) um3 Neut % (Auto) 77.3 (38-83) % Lymph % (Auto) 12.6 L (25-47) % [place] % (Auto) 3.0 (1-9) % Eos % (Auto) 5.6 (0-6) % Baso % (Auto) 1.5 (0-2) % Absolute Neuts (auto) 9.2 H (1.5-7.7) 10^3/ul Absolute Lymphs (auto) 1.5 (1.0-4.8) 10^3/ul Absolute Monos (auto) 0.4 (0-0.8) 10^3/ul Absolute Eos (auto) 0.7 H (0-0.6) 10^3/ul Absolute Basos (auto) 0.2 (0-0.2) 10^3/ul Absolute Nucleated RBC 0.01 10^3/ul Nucleated RBC % 0.1 INR (Anticoag Therapy) 1.25 H (0.89-1.11) Sodium 133 (133-145) mmol/L Potassium 3.8 (3.5-5.0) mmol/L Chloride 95 L (101-111) mmol/L Carbon Dioxide 29 (22-32) mmol/L Anion Gap 9 (2-11) mmol/L BUN 21 (6-24) mg/dL Creatinine 0.95 (0.51-0.95) mg/dL Est GFR ( Amer) 79.1 (>60) Est GFR (Non-Af Amer) 61.5 (>60) BUN/Creatinine Ratio 22.1 H (8-20) Glucose 151 H (70-100) mg/dL Lactic Acid (0.5-2.0) mmol/L Calcium 8.8 (8.6-10.3) mg/dL Magnesium 1.9 (1.9-2.7) mg/dL Total Bilirubin 0.40 (0.2-1.0) mg/dL AST 16 (13-39) U/L ALT 17 (7-52) U/L Alkaline Phosphatase 49 (34-104) U/L Troponin I 0.01 (<0.04) ng/mL C-Reactive Protein 46.94 H (< 5.00) mg/L Total Protein 6.5 (6.4-8.9) g/dL Albumin 3.4 (3.2-5.2) g/dL Globulin 3.1 (2-4) g/dL Albumin/Globulin Ratio 1.1 (1-3) TSH 6.30 H (0.34-5.60) mcIU/mL Urine Color Urine Appearance Urine pH (5-9) Ur Specific [place] (1.010-1.030) Urine Protein (Negative) Urine Ketones (Negative) Urine Blood (Negative) Urine Nitrate (Negative) Urine Bilirubin (Negative) Urine Urobilinogen (Negative) Ur Leukocyte Esterase (Negative) Urine WBC (Auto) (Absent) Urine RBC (Auto) (Absent) Ur Squamous Epith Cells (Absent) Urine Bacteria (Absent) Urine Glucose (Negative) Urine Opiates Screen (None Detect) Ur Barbiturates Screen (None Detect) Ur Phencyclidine Scrn (None Detect) Ur Amphetamines Screen (None Detect) U Benzodiazepines Scrn (None Detect) Urine Cocaine Screen (None Detect) U Cannabinoids Screen (None Detect) 03/12/17 03/12/17 03/12/17 Range/Units 11:45 12:06 12:06 WBC (3.5-10.8) 10^3/ul RBC (4.0-5.4) 10^6/ul Hgb (12.0-16.0) g/dl Hct (35-47) % MCV (80-97) fL MCH (27-31) pg MCHC (31-36) g/dl RDW (10.5-15) % Plt Count (150-450) 10^3/ul MPV (7.4-10.4) um3 Neut % (Auto) (38-83) % Lymph % (Auto) (25-47) % [place] % (Auto) (1-9) % Eos % (Auto) (0-6) % Baso % (Auto) (0-2) % Absolute Neuts (auto) (1.5-7.7) 10^3/ul Absolute Lymphs (auto) (1.0-4.8) 10^3/ul Absolute Monos (auto) (0-0.8) 10^3/ul Absolute Eos (auto) (0-0.6) 10^3/ul Absolute Basos (auto) (0-0.2) 10^3/ul Absolute Nucleated RBC 10^3/ul Nucleated RBC % INR (Anticoag Therapy) (0.89-1.11) Sodium (133-145) mmol/L Potassium (3.5-5.0) mmol/L Chloride (101-111) mmol/L Carbon Dioxide (22-32) mmol/L Anion Gap (2-11) mmol/L BUN (6-24) mg/dL Creatinine (0.51-0.95) mg/dL Est GFR ( Amer) (>60) Est GFR (Non-Af Amer) (>60) BUN/Creatinine Ratio (8-20) Glucose (70-100) mg/dL Lactic Acid 2.2 H* (0.5-2.0) mmol/L Calcium (8.6-10.3) mg/dL Magnesium (1.9-2.7) mg/dL Total Bilirubin (0.2-1.0) mg/dL AST (13-39) U/L ALT (7-52) U/L Alkaline Phosphatase (34-104) U/L Troponin I (<0.04) ng/mL C-Reactive Protein (< 5.00) mg/L Total Protein (6.4-8.9) g/dL Albumin (3.2-5.2) g/dL Globulin (2-4) g/dL Albumin/Globulin Ratio (1-3) TSH (0.34-5.60) mcIU/mL Urine Color Yellow Urine Appearance Clear Urine pH 6.0 (5-9) Ur Specific [place] 1.018 (1.010-1.030) Urine Protein 1+(30 mg/dl) H (Negative) Urine Ketones Negative (Negative) Urine Blood Negative (Negative) Urine Nitrate Negative (Negative) Urine Bilirubin Negative (Negative) Urine Urobilinogen Negative (Negative) Ur Leukocyte Esterase Trace H (Negative) Urine WBC (Auto) Trace(0-5/hpf) (Absent) Urine RBC (Auto) 1+(3-5/hpf) H (Absent) Ur Squamous Epith Cells Present H (Absent) Urine Bacteria 1+ H (Absent) Urine Glucose Negative (Negative) Urine Opiates Screen None detected (None Detect) Ur Barbiturates Screen None detected (None Detect) Ur Phencyclidine Scrn None detected (None Detect) Ur Amphetamines Screen None detected (None Detect) U Benzodiazepines Scrn None detected (None Detect) Urine Cocaine Screen None detected (None Detect) U Cannabinoids Screen None detected (None Detect) Microbiology and Other Data: Microbiology 03/12/17 18:05 Nasal Screen MRSA (PCR)([facility]) - Final Nasal Mrsa Negative Assess/Plan/Problems-Billing Assessment: Ms. 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 - Patient Problems (1) Fall Comment: - Patient reports two episodes of knee buckling and sudden falls at home. - C/O pain radiating into bilateral legs. CT lumbar spine negative. R LE US negative, L LE US pending. ? if pain is sciatic. - PT eval found patient to be independent with ambulation with walker. Continue PT. - Question if falls related to deconditioning, morbid obesity, and neuropathy. (2) Afib Comment: - SR now. - Continue metoprolol and xarelto. (3) CHF (congestive heart failure) Comment: - No evidence of acute exacerbation. - Continue home lasix. Requesting records from [facility], to review previous echo. (4) Fever Comment: - No fever thus far but patient reports having fevers every other day at home for over a year, as high as 102. - Undergoing outpatient workup with Dr. Doyle and Dr. Sargent who both recommended CT CAP. CT CAP shows possible small infiltrates but do not appear significant on my review, no clear evidence of pneumonia. Blood cultures have been drawn. UA with trace leuk esterase but patient denies dysuria or frequency. - Continue to monitor and review with Dr. Doyle and Dr. Sargent on Tuesday. (5) SHANI (obstructive sleep apnea) Comment: - Patient compliant with bipap overnight, awaiting bipap machine for home to be delivered. (6) Morbid obesity Comment: - BMI 65. - Continue heart healty diet, recommend referral to [facility] at discharge. (7) Neuropathy Comment: - Suspect neuropathy contributing to falls. - Continue gabapentin. (8) Full code status (9) DVT prophylaxis Comment: - Continue xarelto.
[2017-03-13] MEDS: Rivaroxaban TAB(*) 20 MG TAB PO SCH (08:50)
[2017-03-13] MEDS: azaTHIOprine TAB(*) 50 MG TAB PO SCH (08:50)
[2017-03-13] MEDS: Gabapentin CAP(*) 300 MG PO SCH ×4 (08:51→20:10)
[2017-03-13] MEDS: Aspirin EC Low Dose* 81 MG TAB.EC PO SCH (08:52)
[2017-03-13] MEDS: Metoprolol Succinate XL TAB* 50 MG PO SCH (08:52)
[2017-03-13] MEDS: Hydrochlorothiazide TAB* 25 MG PO SCH (08:52)
[2017-03-13] MEDS: Furosemide TAB* 40 MG PO SCH (08:52)
--- NOTE | 2017-03-13 18:03 | RAD ---
INDICATION: Left calf pain and swelling. COMPARISON: There are no prior studies available for comparison. TECHNIQUE: Multiple real-time, color flow and Doppler tracings of the left lower extremity were obtained. FINDINGS: The common femoral, femoral, profunda femoral and popliteal veins all demonstrate normal compressibility, augmentation with compression and phasic response with respiration. The posterior tibial veins demonstrate normal compressibility and augmentation with compression. The peroneal veins were nonvisualized likely due to the patient's body habitus. IMPRESSION: LIMITED EXAM OF THE CALF, NO EVIDENCE FOR DEEP VENOUS THROMBOSIS.
[2017-03-13] MEDS: Amitriptyline TAB* 50 MG PO SCH (20:10)
[2017-03-14] MEDS: Heparin VIAL(*) 5000 UNITS/ML VIAL (FIVE THOUSAND) SUBCUT SCH ×2 (05:32→13:02)
[2017-03-14] MEDS: oxyCODONE/Acetamin 5/325 MG* TAB PO PRN ×2 (05:33→12:05)
[2017-03-14] MEDS: Levothyroxine TAB* 75 MCG TAB PO SCH (05:33)
[2017-03-14] MEDS: Aspirin EC Low Dose* 81 MG TAB.EC PO SCH (07:56)
[2017-03-14] MEDS: Furosemide TAB* 40 MG PO SCH (07:56)
[2017-03-14] MEDS: Rivaroxaban TAB(*) 20 MG TAB PO SCH (07:56)
[2017-03-14] MEDS: Metoprolol Succinate XL TAB* 50 MG PO SCH (07:56)
[2017-03-14] MEDS: Gabapentin CAP(*) 300 MG PO SCH ×2 (07:56→13:01)
[2017-03-14] MEDS: azaTHIOprine TAB(*) 50 MG TAB PO SCH (07:57)
[2017-03-14] MEDS: Hydrochlorothiazide TAB* 25 MG PO SCH (07:57)
--- NOTE | 2017-03-14 08:39 | PN ---
Subjective Date of Service: 03/14/17 Interval History: Ms. Cevallos is feeling quiet well this morning and is eager for discharge to home. She states that she has been tolerating the Bipap well while here. She denies chest pain, SOB, nausea, abdominal pain. She has been ambulating without difficulty with her walker. Objective Active Medications: Albuterol (Ventolin Hfa Inhaler*) 1 puff INH Q4H PRN Amitriptyline HCl (Elavil Tab*) 50 mg PO BEDTIME [facility] Aspirin (Aspirin Ec Low Dose*) 81 mg PO DAILY [facility] Azathioprine (Imuran Tab(*)) 50 mg PO DAILY [facility] Ciprofloxacin (Cipro Tab*) 500 mg PO Q12HR [facility] Cyclobenzaprine HCl (Flexeril Tab*) 5 mg PO TID PRN Furosemide (Lasix Tab*) 40 mg PO DAILY [facility] Gabapentin (Neurontin Cap(*)) 600 mg PO QID [facility] Heparin Sodium (Porcine) (Heparin Vial(*)) 5,000 units SUBCUT Q8HR [facility] Hydrochlorothiazide (Hydrodiuril Tab*) 25 mg PO DAILY [facility] Levothyroxine Sodium (Synthroid Tab*) 225 mcg PO 0600 [facility] Metoprolol Succinate (Toprol Xl Tab*) 50 mg PO DAILY [facility] Oxycodone/Acetaminophen (Percocet 5/325 Tab*) 1 tab PO Q4H PRN Oxycodone/Acetaminophen (Percocet 5/325 Tab*) 2 tab PO Q4H PRN Pneumococcal Polyvalent Vaccine (Pneumococcal Vac Polyvalent*) 0.5 ml IM .ONCE ONE Rivaroxaban (Xarelto (*)) 20 mg PO DAILY [facility] Vital Signs 03/13/17 03/13/17 03/13/17 10:51 11:22 12:14 Temperature 97.4 F Pulse Rate 83 Respiratory 16 17 18 Rate Blood Pressure 150/67 (mmHg) O2 Sat by Pulse 95 Oximetry 03/13/17 03/13/17 03/13/17 14:13 14:14 15:39 Temperature 97.5 F Pulse Rate 73 Respiratory 16 16 20 Rate Blood Pressure 143/59 (mmHg) O2 Sat by Pulse 98 Oximetry 03/13/17 03/13/17 03/13/17 16:10 18:20 20:00 Temperature Pulse Rate Respiratory 16 16 20 Rate Blood Pressure (mmHg) O2 Sat by Pulse Oximetry 03/13/17 03/13/17 03/13/17 20:06 20:10 22:10 Temperature 97.9 F Pulse Rate 75 Respiratory 20 20 20 Rate Blood Pressure 148/68 (mmHg) O2 Sat by Pulse 97 Oximetry 03/13/17 03/13/17 03/14/17 22:20 23:49 00:06 Temperature 97.9 F Pulse Rate 75 Respiratory 20 16 18 Rate Blood Pressure 144/85 (mmHg) O2 Sat by Pulse 95 Oximetry 03/14/17 03/14/17 03/14/17 02:06 04:56 05:33 Temperature 98.0 F Pulse Rate 75 Respiratory 18 16 18 Rate Blood Pressure 124/107 (mmHg) O2 Sat by Pulse 93 Oximetry 03/14/17 03/14/17 03/14/17 07:33 07:45 07:56 Temperature 98.3 F Pulse Rate 77 Respiratory 18 16 16 Rate Blood Pressure 146/55 (mmHg) O2 Sat by Pulse 95 Oximetry Oxygen Devices in Use Now: None Appearance: Female sitting up in bed in NAD Ears/Nose/Mouth/Throat: NL Teeth, Lips, Gums Neck: Trachea Midline Respiratory: Symmetrical Chest Expansion and Respiratory Effort, Clear to Auscultation Cardiovascular: NL Sounds; No Murmurs; No JVD, No Edema Abdominal: NL Sounds; No Tenderness; No Distention Lymphatic: No Cervical Adenopathy Extremities: No Edema Skin: No Rash or Ulcers Neurological: Alert and Oriented x 3, NL Muscle Strength and Tone Nutrition: Taking PO's Result Diagrams: 03/13/17 05:30 03/12/17 11:45 Additional Lab and Data: Lab Results 03/12/17 03/12/17 03/12/17 Range/Units 11:45 11:45 11:45 WBC 11.9 H (3.5-10.8) 10^3/ul RBC 3.80 L (4.0-5.4) 10^6/ul Hgb 11.2 L (12.0-16.0) g/dl Hct 35 (35-47) % MCV 92 (80-97) fL MCH 29 (27-31) pg MCHC 32 (31-36) g/dl RDW 15 (10.5-15) % Plt Count 282 (150-450) 10^3/ul MPV 9 (7.4-10.4) um3 Neut % (Auto) 77.3 (38-83) % Lymph % (Auto) 12.6 L (25-47) % [place] % (Auto) 3.0 (1-9) % Eos % (Auto) 5.6 (0-6) % Baso % (Auto) 1.5 (0-2) % Absolute Neuts (auto) 9.2 H (1.5-7.7) 10^3/ul Absolute Lymphs (auto) 1.5 (1.0-4.8) 10^3/ul Absolute Monos (auto) 0.4 (0-0.8) 10^3/ul Absolute Eos (auto) 0.7 H (0-0.6) 10^3/ul Absolute Basos (auto) 0.2 (0-0.2) 10^3/ul Absolute Nucleated RBC 0.01 10^3/ul Nucleated RBC % 0.1 INR (Anticoag Therapy) 1.25 H (0.89-1.11) Sodium 133 (133-145) mmol/L Potassium 3.8 (3.5-5.0) mmol/L Chloride 95 L (101-111) mmol/L Carbon Dioxide 29 (22-32) mmol/L Anion Gap 9 (2-11) mmol/L BUN 21 (6-24) mg/dL Creatinine 0.95 (0.51-0.95) mg/dL Est GFR ( Amer) 79.1 (>60) Est GFR (Non-Af Amer) 61.5 (>60) BUN/Creatinine Ratio 22.1 H (8-20) Glucose 151 H (70-100) mg/dL Lactic Acid (0.5-2.0) mmol/L Calcium 8.8 (8.6-10.3) mg/dL Magnesium 1.9 (1.9-2.7) mg/dL Total Bilirubin 0.40 (0.2-1.0) mg/dL AST 16 (13-39) U/L ALT 17 (7-52) U/L Alkaline Phosphatase 49 (34-104) U/L Troponin I 0.01 (<0.04) ng/mL C-Reactive Protein 46.94 H (< 5.00) mg/L Total Protein 6.5 (6.4-8.9) g/dL Albumin 3.4 (3.2-5.2) g/dL Globulin 3.1 (2-4) g/dL Albumin/Globulin Ratio 1.1 (1-3) TSH 6.30 H (0.34-5.60) mcIU/mL Urine Color Urine Appearance Urine pH (5-9) Ur Specific [place] (1.010-1.030) Urine Protein (Negative) Urine Ketones (Negative) Urine Blood (Negative) Urine Nitrate (Negative) Urine Bilirubin (Negative) Urine Urobilinogen (Negative) Ur Leukocyte Esterase (Negative) Urine WBC (Auto) (Absent) Urine RBC (Auto) (Absent) Ur Squamous Epith Cells (Absent) Urine Bacteria (Absent) Urine Glucose (Negative) Urine Opiates Screen (None Detect) Ur Barbiturates Screen (None Detect) Ur Phencyclidine Scrn (None Detect) Ur Amphetamines Screen (None Detect) U Benzodiazepines Scrn (None Detect) Urine Cocaine Screen (None Detect) U Cannabinoids Screen (None Detect) 03/12/17 03/12/17 03/12/17 Range/Units 11:45 12:06 12:06 WBC (3.5-10.8) 10^3/ul RBC (4.0-5.4) 10^6/ul Hgb (12.0-16.0) g/dl Hct (35-47) % MCV (80-97) fL MCH (27-31) pg MCHC (31-36) g/dl RDW (10.5-15) % Plt Count (150-450) 10^3/ul MPV (7.4-10.4) um3 Neut % (Auto) (38-83) % Lymph % (Auto) (25-47) % Lewis % (Auto) (1-9) % Eos % (Auto) (0-6) % Baso % (Auto) (0-2) % Absolute Neuts (auto) (1.5-7.7) 10^3/ul Absolute Lymphs (auto) (1.0-4.8) 10^3/ul Absolute Monos (auto) (0-0.8) 10^3/ul Absolute Eos (auto) (0-0.6) 10^3/ul Absolute Basos (auto) (0-0.2) 10^3/ul Absolute Nucleated RBC 10^3/ul Nucleated RBC % INR (Anticoag Therapy) (0.89-1.11) Sodium (133-145) mmol/L Potassium (3.5-5.0) mmol/L Chloride (101-111) mmol/L Carbon Dioxide (22-32) mmol/L Anion Gap (2-11) mmol/L BUN (6-24) mg/dL Creatinine (0.51-0.95) mg/dL Est GFR ( Amer) (>60) Est GFR (Non-Af Amer) (>60) BUN/Creatinine Ratio (8-20) Glucose (70-100) mg/dL Lactic Acid 2.2 H* (0.5-2.0) mmol/L Calcium (8.6-10.3) mg/dL Magnesium (1.9-2.7) mg/dL Total Bilirubin (0.2-1.0) mg/dL AST (13-39) U/L ALT (7-52) U/L Alkaline Phosphatase (34-104) U/L Troponin I (<0.04) ng/mL C-Reactive Protein (< 5.00) mg/L Total Protein (6.4-8.9) g/dL Albumin (3.2-5.2) g/dL Globulin (2-4) g/dL Albumin/Globulin Ratio (1-3) TSH (0.34-5.60) mcIU/mL Urine Color Yellow Urine Appearance Clear Urine pH 6.0 (5-9) Ur Specific [place] 1.018 (1.010-1.030) Urine Protein 1+(30 mg/dl) H (Negative) Urine Ketones Negative (Negative) Urine Blood Negative (Negative) Urine Nitrate Negative (Negative) Urine Bilirubin Negative (Negative) Urine Urobilinogen Negative (Negative) Ur Leukocyte Esterase Trace H (Negative) Urine WBC (Auto) Trace(0-5/hpf) (Absent) Urine RBC (Auto) 1+(3-5/hpf) H (Absent) Ur Squamous Epith Cells Present H (Absent) Urine Bacteria 1+ H (Absent) Urine Glucose Negative (Negative) Urine Opiates Screen None detected (None Detect) Ur Barbiturates Screen None detected (None Detect) Ur Phencyclidine Scrn None detected (None Detect) Ur Amphetamines Screen None detected (None Detect) U Benzodiazepines Scrn None detected (None Detect) Urine Cocaine Screen None detected (None Detect) U Cannabinoids Screen None detected (None Detect) Microbiology and Other Data: Microbiology 03/12/17 18:05 Nasal Screen MRSA (PCR)([facility]A) - Final Nasal Mrsa Negative Assess/Plan/Problems-Billing Assessment: Ms. Cevallos is a 52 yo female with a PMH of [address] 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 - Patient Problems (1) Fall Comment: - Patient reports two episodes of knee buckling and sudden falls at home. - Only positive finding has been of UTI though patient denies dysuria or frequency, perhaps this contributed to her weakness. - I suspect her mobility issues are directly related to her morbid obesity, obesity hypoventilation syndrome, SHANI, and chronic hypercapnic respiratory failure. Patient noted to be falling asleep during conversations with me and when she saw Dr. Prince on Tuesday. - C/O pain radiating into bilateral legs. CT lumbar spine negative. R LE US negative, L LE US pending. ? if pain is sciatic. - PT eval found patient to be independent with ambulation with walker. (2) UTI (urinary tract infection) Comment: - Urine culture positive with > 100,000 colonies. - Start cipro based on sensitivities. (3) Afib Comment: - SR now. - Continue metoprolol and xarelto. (4) CHF (congestive heart failure) Comment: - No evidence of acute exacerbation. - Continue home lasix. Requesting records from [facility], to review previous echo. (5) Fever Comment: - No fever thus far but patient reports having fevers every other day at home for over a year, as high as 102. - Undergoing outpatient workup with Dr. Doyle and Dr. Sargent who both recommended CT CAP. CT CAP shows possible small infiltrates but do not appear significant on my review, no clear evidence of pneumonia. Blood cultures have been drawn. UA with ecoli, plan to treat with cipro though do not think this contributed to patient's report over fever for more than 6 months. - Continue to monitor and review with Dr. Doyle and Dr. Sargent on Tuesday. (6) SHANI (obstructive sleep apnea) Comment: - with OBESITY HYPOVENTILATION SYNDROME AND CHRONIC HYPERCAPNIC RESPIRATORY FAILURE. - After extensive investigations, have been able to arrange for patient to have CPAP delivered to home today. (7) Morbid obesity Comment: - BMI 65. - Continue heart healty diet, recommend referral to [facility] at discharge. (8) Neuropathy Comment: - Suspect neuropathy contributing to falls. - Continue gabapentin. (9) Full code status (10) DVT prophylaxis Comment: - Continue xarelto. Status and Disposition: Inpatient, discharge to home.
[2017-03-14] MEDS ORDERED: Ciprofloxacin TAB* 500 MG PO SCH (09:00)
[2017-03-14] MEDS ORDERED: Pneumococcal Vac Polyvalent* 0.5 ML VIAL IM ONE (09:00)
[2017-03-14 11:34] VITALS: BP 133/78
--- NOTE | 2017-03-15 09:23 | DS ---
Cc: Dr. Prince; ENT physician, Dr. Vega in [place]. * HOSPITAL MEDICINE DISCHARGE SUMMARY: DATE OF ADMISSION: 03/12/17 DATE OF DISCHARGE: 03/14/17 ATTENDING PHYSICIAN: Dr. Claude Onofre * (dictation provided by Myrna Montgomery NP) PRIMARY DIAGNOSES: 1. Urinary tract infection. 2. Chronic hypercapnic respiratory failure secondary to obesity hypoventilation syndrome and obstructive sleep apnea. 3. Falls. SECONDARY DIAGNOSES: 1. Three recent admissions to [facility] for pneumonia, congestive heart failure, and atrial fibrillation. 2. Right total knee replacement approximately 6 years ago at [facility]. 3. Congestive heart failure, diastolic. 4. History of reported complicated MRSA infection after toe amputation at [facility]. 5. Neuropathy status post chemotherapy. 6. Report of chronic myeloid leukemia, status post treatment. 7. Report of history of uterine cancer. 8. Report of history of cervical cancer. 9. 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 10. Crohn's disease. 11. Atrial fibrillation. 12. Chronic hypercapnic respiratory failure. MEDICATIONS AT THE TIME OF DISCHARGE: 1. Cipro 500 mg p.o. q. 12 hours. 2. Calcium with magnesium 1 cap p.o. daily. 3. [place] 3 fatty acid 1000 mg p.o. daily. 4. Probiotic 1 cap p.o. daily. 5. Vitamin D 1500 units p.o. daily. 6. Albuterol inhaler 1 puff inhale q. 4 hours p.r.n. 7. Amitriptyline 50 mg p.o. at bedtime. 8. Aspirin 81 mg p.o. daily. 9. Furosemide 40 mg p.o. daily. 10. Gabapentin 600 mg p.o. 4 times daily. 11. Hydrochlorothiazide 25 mg p.o. daily. 12. Levothyroxine 225 mcg p.o. daily. 13. Metoprolol succinate 50 mg p.o. daily. 14. Rivaroxaban 20 mg p.o. daily. 15. Azathioprine 50 mg p.o. daily. HOSPITAL COURSE: Ms. Cevallos is a 52-year-old female with past medical history of chronic respiratory failure secondary to obstructive sleep apnea and obesity hypoventilation syndrome as well as well recent diagnosis of diastolic CHF, AFib , and morbid obesity who presented to the hospital on 03/12/17 after a fall at home. Please see the dictated H and P from myself for complete details. In brief, the patient has had 3 recent admissions to [facility] since December; admissions have been for pneumonia, CHF, and atrial fibrillation. During these hospitalizations, it has been determined that patient had hypercapnic respiratory failure and likely needed CPAP or BiPAP machine at home. Plan at the end of last discharge, I believe on 03/07/17, was for patient to follow up with Dr. Vega's office regarding arrangements for sleep study and for a CPAP machine. The patient states she was unable to get the CPAP machine delivered to her home, she is unclear of the reasons why. Shortly after coming home from the hospital on Tuesday, 03/07, she fell. She had EMS come pick her up from the floor, but she did not want to be evaluated. On Tuesday, she went to see Dr. Prince at his office. I spoke to him directly on the phone, he stated that the patient was falling asleep in front of him during the visit and reported a fall early that morning. He was very concerned that she was unsafe to continue at home without some sort of positive pressure ventilation. He spoke with Dr. Vega's office who reported that they were "working on" getting this setup through the insurance company. He referred her to [facility] but she was discharged from the emergency room. She presented to our hospital on 03/12/17 after a fall at home. Again, patient reported falling immediately on standing in the morning when attempting to get out of bed and described a sensation that both of her knees buckled. Ms. Cevallos was admitted to the hospital. I reviewed the recent consultation with Dr. Doyle and Dr. Sargent for patient's history of cancer and elevated CRP and reported fevers. They recommended that the patient have a chest, abdomen, and pelvis CT, which had not been performed yet outpatient and given her deteriorating status that was completed here during this hospitalization and it was read as follows: 1. Small patchy right upper and lower lobe infiltrates suspicious for pneumonia. 2. Increased soft tissue density present within the ascending colon at the hepatic flexure, likely representing adherent stool though a mass cannot be excluded, recommend colonoscopy for further evaluation. The patient had been treated for pneumonia at [facility] in the past 3 months, I suspect that any infiltrate seen on these exam were reflective of this previous pneumonia. She had no clear evidence of infection here with no cough and no fever. I did review the scan myself as did Dr. Doyle and were not able to appreciate any infiltrate at all. I do note that she has this question of a soft tissue density within the ascending colon, this has been reviewed with Dr. Prince directly with plans for colonoscopy outpatient. In addition to this study, patient had a lumbar spine CT because she complained of low back pain and pain radiating into her legs. This was read as follows: "Extremely limited study, [id number] lumbar spondylosis. If the patient' s symptoms persist recommend an MRI of the lumbar spine for further evaluation. She complained of bilateral lower extremity pain, and therefore venous Doppler studies were completed on both right and left lower extremity. The right lower extremity was read as follows: "Limited exam of the calf, no evidence for deep vein thrombosis and for the left, it was read as follows: "Limited exam of the calf, no evidence for deep vein thrombosis." Ms. Cevallos seems to have many current complaints/she reports first having a fever every other day for 6 months. She has had no fever while here in the hospital. Her white blood cell count was 11.9 on arrival and is 9.9 the following day. Patient is following, as I noted, with Dr. Doyle and Dr. Lady Sargent from Oncology regarding her complaint of fever as well as her chronically elevated CRP. Question whether or not her CRP elevation is secondary to her underlying autoimmune process, specifically Crohn's disease as it has been elevated as far back as 2014. At the time of arrival, the patient had a positive urinalysis with trace leuk esterase and 1+ bacteria. On questioning, she denied any dysuria or frequency. However, her urine culture did grow E. coli with greater than 100,000 colonies. Based on her newer onset weakness in the stetting of her chronic morbid co- medical conditions, I plan to treat with ciprofloxacin x5 days. During this hospitalization, Ms. Cevallos has been using BiPAP. She tolerated it quite well. On the first day of admission when I examined her in the morning, she was very sleepy and had a hard time conversing with me; however, by day 2, after using the BiPAP overnight, she is awake and responding appropriately. ABGs were not obtained during this hospitalization, but I suspect that significant explanation for her problems and her falls at home is related to her chronic hypercapnic respiratory failure and lack of a positive pressure ventilation support at home. We have got records from Dr. Vega's office where it shows that she does have severe obstructive sleep apnea. After working with our case management staff, we have been able to arrange for the patient to have a CPAP delivered today at home, also patient has a preexisting appointment to see Dr. Veag tomorrow regarding titration of the pressure ventilation settings. Ms. Cevallos is medically stable for discharge to home today, now that she has a CPAP machine for support of her ventilation and treatment for urinary tract infection. She has been evaluated by Physical Therapy to be independent with ambulation at least while here in the hospital. DISPOSITION: Home. DIET: Low fat, low salt. ACTIVITY: As tolerated. FOLLOWUP PLANS: 1. Please follow up with Dr. Vega tomorrow regarding titration of positive pressure ventilation. 2. Please follow up with Dr. Prince in the next 3 to 5 days. 3. Consider follow up with [facility] for healthy living regarding weight loss. TIME SPENT: Approximately 75 minutes was spent in the discharge of this patient , more than half of the time was spent with the patient at the bedside reviewing the events leading up to this hospitalization, performing the physical examination, and reviewing my plan of care. MYRNA MONTGOMERY NP [id number]/CPS #: [id number] DACIA
== END 2017-03-14 15:15 | disposition home or self-care (01) ==
LOC: ED 07:53 → MED 13:15 → OBSVTOIN 03-13 10:14 → INTOOBSV 03-13 10:14
PROVIDERS: ADMIT Internal Medicine; ATTEND Internal Medicine
DX: N39.0 Urinary tract infection, site not specified (principal); J96.12 Chronic respiratory failure with hypercapnia; E66.9 Obesity, unspecified; G47.33 Obstructive sleep apnea (adult) (pediatric); Z91.81 History of falling; I50.30 Unspecified diastolic (congestive) heart failure; I48.91 Unspecified atrial fibrillation; Z79.01 Long term (current) use of anticoagulants; R50.9 Fever, unspecified; C92.10 Chronic myeloid leukemia, BCR/ABL-positive, not having achieved remission; G62.9 Polyneuropathy, unspecified; E03.9 Hypothyroidism, unspecified; M79.89 Other specified soft tissue disorders; Z85.41 Personal history of malignant neoplasm of cervix uteri; K50.90 Crohn's disease, unspecified, without complications; Z79.899 Other long term (current) drug therapy; Z88.5 Allergy status to narcotic agent; Z88.2 Allergy status to sulfonamides; Z23 Encounter for immunization
CPT/HCPCS: 36415; 71260; 72131; 74177; 80053; 80307; 81003; 81015; 83605; 83735; 84436; 84443; 84484; 85025; 85610; 86140; 87040; 87077; 87086; 87186; 87641; 90471; 90732; 94660; 94760; 96372; 99283; A9270-GY; G0009; G0378; J1644; J7500; Q9967

== ENCOUNTER 2017-04-29 13:15 | Observation (INO) | payer BC, MEDICARE ==
[2017-04-29 14:59] LABS: Hematocrit 32 % (35-47); Hemoglobin 10.4 g/dl (12.0-16.0); Mean Corpuscular HGB Conc 33 g/dl (31-36); Mean Corpuscular Hemoglobin 31 pg (27-31); Mean Corpuscular Volume 94 fL (80-97); Mean Platelet Volume 8 um3 (7.4-10.4); Red Blood Count 3.43 10^6/ul (4.0-5.4); Red Cell Distribution Width 15 % (10.5-15); White Blood Count 9.5 10^3/ul (3.5-10.8)
[2017-04-29 15:14] LABS: Albumin 3.7 g/dL (3.2-5.2); Calcium 8.3 mg/dL (8.6-10.3); EGFR African American 81.1 (>60); EGFR Non-African American 63.1 (>60); Globulin 3.2 g/dL (2-4); Potassium 4.2 mmol/L (3.5-5.0); Total Bilirubin 0.5 mg/dL (0.2-1.0); Total Protein 6.9 g/dL (6.4-8.9)
[2017-04-29 15:15] LABS: Troponin I 0.01 ng/mL (<0.04)
--- NOTE | 2017-04-29 15:41 | RAD ---
HISTORY: Shortness of breath COMPARISONS: April 26, 2017 VIEWS: 4: Frontal dual-energy and lateral views of the chest. FINDINGS: CARDIOMEDIASTINAL SILHOUETTE: The cardiomediastinal silhouette is normal. ISSA: The issa are normal. PLEURA: The costophrenic angles are sharp. No pleural abnormalities are noted. LUNG PARENCHYMA: The lungs are clear. ABDOMEN: The upper abdomen is clear. There is no subphrenic gas. BONES AND SOFT TISSUES: No bone or soft tissue abnormalities are noted. OTHER: None. IMPRESSION: NO ACTIVE CARDIOPULMONARY DISEASE.
[2017-04-29 16:38] LABS: C Reactive Protein 108.5 mg/L (< 5.00)
[2017-04-29] MEDS ORDERED: HYDROmorphone* 1 MG/ML 1 ML SYR IV SLOW PU ONE (17:34)
[2017-04-29] MEDS ORDERED: Ondansetron INJ* 2 MG/ML VIAL IV ONE (17:34)
[2017-04-29] MEDS ORDERED: NS 0.9% 1000 ML* 1,000 ML IV ONE (17:34)
[2017-04-29] MEDS: Albuterol/Ipratropium NEB.SOL* Albuterol 2.5 MG/Ipratropium 0.5 MG 3 ML INH ONE ×2 (17:48→20:58)
[2017-04-29] MEDS ORDERED: Iodixanol* (CONTRAST) 320 MG/ML 100 ML SDV IV ONE (17:58)
[2017-04-29] MEDS ORDERED: Furosemide IV* 10 MG/ML VIAL (40 MG) IV ONE (18:33)
[2017-04-29] MEDS ORDERED: Albuterol 2.5 MG/3 ML NEB.SOL* (0.083%) INH PRN (18:34)
--- NOTE | 2017-04-29 18:52 | ED ---
Preston Lopez Rebecca, scribed for Pamela Valente MD on 04/29/17 at 1510 . Shortness of Breath - HPI Summary HPI Summary: Pt is a 52 y/o F who presents to ED c/o SOB characterized as dyspnea at rest. Sx began at 0200 this morning and are aggravated by laying flat, alleviated by nothing. Additionally c/o midsternal CP characterized as pressure, productive cough, fever and toe cramping. Additionally notes diffuse pruritis than began 1 hour prior to being seen. Denies calf cramping and throat closing. PMHx CHF and recent PNA for 3-4 months for which she had 3 admissions and resolved 1 month ago. FHx CAD - father passed from complications due to CABG at 55 y/o. - History of Current Complaint Chief Complaint: EDShortnessOfBreath Time Seen by Provider: 04/29/17 14:55 Hx Obtained From: Patient Onset/Duration: Lasting Hours, Still Present Dyspnea At: Rest Aggrevating Factors: Recumbent Position - Laying flat Alleviating Factors: Nothing Associated Signs & Symptoms: Cough (Nonproductive), Chest Pain Unrelated to Cough - pressure, Fever - Allergy/Home Medications Allergies/Adverse Reactions: Allergies Allergy/AdvReac Type Severity Reaction Status Date / Time Morphine Allergy Severe Hives Verified 04/27/17 09:53 Sulfa Antibiotics Allergy Severe Hives Verified 04/27/17 09:53 Home Medications: Home Medications Calcium W/ Magnesium [[place]on-Mag] 1 tab PO DAILY 04/29/17 [History Confirmed ] Calcium [[place]-Weston 500] 1,000 mg PO DAILY 04/29/17 [History Confirmed 04/29/17] Cefdinir cap (NF) [Cefdinir 300 MG cap (NF)] 300 mg PO BID 04/29/17 [History Confirmed 04/29/17] Cholecalciferol [Vitamin D] 1,500 unit PO DAILY 04/29/17 [History Confirmed 08/05] Cyanocobalamin INJ * [Vitamin B12 INJ *] 1,000 mcg IM MONTHLY 04/29/17 [History Confirmed 04/29/17] Hydrochlorothiazide TAB* [Hydrodiuril TAB*] 25 mg PO QAM 04/29/17 [History Confirmed 04/29/17] Lactobacillus [Probiotic] 1 cap PO DAILY 04/29/17 [History Confirmed 04/29/17] Levothyroxine TAB* [Synthroid TAB*] 75 mcg PO QAM 04/29/17 [History Confirmed ] Levothyroxine TAB* [Synthroid TAB*] 200 mcg PO QAM 04/29/17 [History Confirmed 04/29/17] Metoprolol Succinate XL TAB* [Toprol XL TAB*] 50 mg PO DAILY 04/29/17 [History Confirmed 04/29/17] Norethin Acet & Estrad-Fe [Microgestin Fe] 1 tab PO DAILY 04/29/17 [History Confirmed 04/29/17] [place]-3 Fatty Acids (Nf) [Fish Oil (NF)] 1,000 mg PO DAILY 04/29/17 [History Confirmed 04/29/17] Omeprazole CAP* [Prilosec CAP* 20 MG] 40 mg PO DAILY 04/29/17 [History Confirmed 04/29/17] PMH/Surg Hx/FS Hx/Imm Hx Endocrine/Hematology History: Reports: Hx Diabetes - type 2, Hx Thyroid Disease - hypo Cardiovascular History: Reports: Hx Congestive Heart Failure, Hx Hypertension - on meds Denies: Hx Pacemaker/ICD, Other Cardiovascular Problems/Disorders Respiratory History: Reports: Hx Pneumonia Denies: Other Respiratory Problems/Disorders GI History: Reports: Hx Crohn's Disease Denies: Other GI Disorders History: Denies: Hx Renal Disease Musculoskeletal History: Reports: Hx Arthritis - hands, toes, hips, Hx Rheumatoid Arthritis - Has had Remicaide 06/2014 Sensory History: Reports: Hx Contacts or Glasses - glasses to read Denies: Hx Hearing Aid, Hx Hearing Problem Opthamlomology History: Reports: Hx Contacts or Glasses - glasses to read Neurological History: Reports: Hx Migraine - only a few, Hx Nerve Disease - neuopathy feet and hands up to knees Denies: Other Neuro Impairments/Disorders Psychiatric History: Denies: Hx Panic Disorder - Surgical History Surgery Procedure, Year, and Place: Cholecystectomy , 1989, adi , Colon resection 2010-Crohn's. appendectomy, 1975. tonsilectomy 1965. L4-L5 - [place]- CALCIUM DEPOSITS REMOVED. Lt 3RD TOE - PARTIAL APUTATED, RELEASED TENDONS IN NOE TOES. Rt KNEE REPLACEMENT. TEAR IN CORNEA - TREATED WITH DAILY CONTACTS UNTIL HEALED Hx Anesthesia Reactions: No Infectious Disease History: Yes Infectious Disease History: Reports: Hx of Known/Suspected MRSA - throughout body- [facility] Denies: Traveled Outside the [place] in Last 30 Days - Family History Known Family History: Positive: Cardiac Disease, Diabetes - Social History Alcohol Use: Rare Alcohol Amount: holidays Substance Use Type: Reports: None, Prescribed Smoking Status (MU): Never Smoked Tobacco Review of Systems Positive: Fever Positive: Other - Denies throat closing Positive: Chest Pain - midsternal chest pressure Positive: Shortness Of Breath, Cough - productive Positive: Other - C/o toe cramping; Denies calf cramping Positive: Other - Diffuse pruritis All Other Systems Reviewed And Are Negative: Yes Physical Exam - Summary Physical Exam Summary: General: Well appearing, no pain distress Skin: Warm, Skin Color Reflects Adequate Perfusion, Dry Eyes: EOMI, BRAXTON ENT: Pharynx normal, TMs normal Neck: Supple, nontender Respiratory: Tachypneic, CTA, breath sounds present, no rhonchi, no wheezes, no rales Cardiovascular: RRR, no murmur, no rub, no gallop Abdomen: Soft, nontender, Non-distended, no guarding, no rebound Bowel: Present Musculoskeletal: PRIYANKA, No edema Neuro: Sensory/motor intact, A&Ox3, CN intact 2-12 Psych: Affect/mood appropriate Triage Information Reviewed: Yes Vital Signs On Initial Exam: Initial Vitals Temp Pulse Resp BP Pulse Ox 98.0 F 88 26 143/62 97 04/29/17 13:16 04/29/17 13:16 04/29/17 13:16 04/29/17 13:16 04/29/17 13:16 Vital Signs Reviewed: Yes Diagnostics - Vital Signs Vital Signs Temp Pulse Resp BP Pulse Ox 04/29/17 14:32 98.7 F 87 13 165/111 99 04/29/17 13:16 98.0 F 88 26 143/62 97 - Laboratory Lab Results: Lab Results 04/29/17 Range/Units 14:50 WBC 9.5 (3.5-10.8) 10^3/ul RBC 3.43 L (4.0-5.4) 10^6/ul Hgb 10.4 L (12.0-16.0) g/dl Hct 32 L (35-47) % MCV 94 (80-97) fL MCH 31 (27-31) pg MCHC 33 (31-36) g/dl RDW 15 (10.5-15) % Plt Count 272 (150-450) 10^3/ul MPV 8 (7.4-10.4) um3 Neut % (Auto) 83.2 H (38-83) % Lymph % (Auto) 9.9 L (25-47) % Hinds % (Auto) 3.0 (1-9) % Eos % (Auto) 3.3 (0-6) % Baso % (Auto) 0.6 (0-2) % Absolute Neuts (auto) 7.9 H (1.5-7.7) 10^3/ul Absolute Lymphs (auto) 0.9 L (1.0-4.8) 10^3/ul Absolute Monos (auto) 0.3 (0-0.8) 10^3/ul Absolute Eos (auto) 0.3 (0-0.6) 10^3/ul Absolute Basos (auto) 0.1 (0-0.2) 10^3/ul Absolute Nucleated RBC 0 10^3/ul Nucleated RBC % 0 Result Diagrams: 04/29/17 14:50 04/29/17 14:50 Lab Statement: Any lab studies that have been ordered have been reviewed, and results considered in the medical decision making process. - Radiology CXR Xray Interpretation: No Acute Changes - NO ACTIVE CARDIOPULMONARY DISEASE. Radiology Interpretation Completed By: Radiologist - EKG 1410 Cardiac Rate: NL - 82 bpm EKG Rhythm: Sinus Rhythm ST Segment: Normal - No ST elevation EKG Interpretation: No Q waves EKG Comparison: No Significant Change - unchanged from EKG on 04/27/2017 Re-Evaluation - Re-Evaluation First Eval Re-Evaluation Time: 17:30 Change: Worse Comment: Pain going down the LUE and cramping in the LLE. Course/Dx - Course Course Of Treatment: 52 yo female with complicated pmh of recent pneumonia here with cp and sob. Her lactic acid is sl elevated and her crp is over 100, she was seen by and admitted - Diagnoses Provider Diagnoses: Chest pain, Dyspnea - Physician Notifications Discussed Care of Patient With: Jd Bradley Time Discussed With Above Provider: 15:47 Instructed by Provider To: Other - Making him aware of the pt and discussing the case. Discussed care of pt with Dr. Taylor Schultz at 1733 who recommended a CTA and the hospitalists will evaluate the pt in the ED. Discharge - Discharge Plan Condition: Stable Disposition: ADMITTED TO [facility] documentation as recorded by the Preston tamayo Rebecca accurately reflects the service I personally performed and the decisions made by me, Pamela Valente MD.
--- NOTE | 2017-04-29 19:43 | RAD ---
HISTORY: Left calf pain TECHNIQUE: Multiple transverse and longitudinal ultrasound images were obtained of the veins of the left lower extremity using grayscale, color Doppler, and spectral Doppler imaging with and without compression and with augmentation. FINDINGS: VEINS: The common femoral vein, deep femoral vein, femoral vein and popliteal vein are compressible throughout their course, with normal flow on color Doppler imaging and normal response to augmentation on spectral Doppler imaging. SOFT TISSUES: Grossly normal. No large popliteal fossa cyst was identified. IMPRESSION: No sonographic evidence of deep vein thrombosis.
[2017-04-29] MEDS ORDERED: Acetaminophen TAB* 325 MG PO PRN (21:39)
--- NOTE | 2017-04-29 21:47 | RAD ---
INDICATION: Chest pain COMPARISON: CT chest abdomen pelvis dated March 12, 2017 TECHNIQUE: Axial source images were acquired following the administration of intravenously and utilizing CT angiographic technique. Coronal and sagittal reconstructed images were constructed and reviewed. FINDINGS: There there are no filling defects in the pulmonary arteries to indicate acute pulmonary embolic disease. There are faint patchy groundglass densities in the bilateral lower lobes. There is mild cardiomegaly. There is no evidence of pericardial effusion. There is no evidence of aortic aneurysm or dissection. There is no mediastinal, hilar, or axillary lymphadenopathy. Degenerative changes of the thoracic spine includes loss of intervertebral disc height. There are surgical clips in the gallbladder fossa. IMPRESSION: 1. No CT of evidence of pulmonary embolism. 2. Faint patchy densities in the dependent lower lobes could be seen as a consequence of mild congestive heart failure, pneumonitis or infectious disease.
[2017-04-29] MEDS: CMCS: Cefdinir cap (NF) 300 MG CAP PO SCH (21:49)
[2017-04-29] MEDS: Gabapentin CAP(*) 300 MG PO SCH (21:49)
--- NOTE | 2017-04-29 22:37 | HP ---
CC: Dr. Prince; Dr. Doyle; Dr. Sargent HISTORY AND PHYSICAL: DATE OF ADMISSION: 04/29/17 PRIMARY CARE PHYSICIAN: Dr. Prince. CHIEF COMPLAINT: Shortness of breath, wheezing, chest pain. HISTORY OF PRESENT ILLNESS: Ms. Cevallos is a 52-year-old female with a past medical history of hyperte nsion, paroxysmal AFib, OHS/SHANI, reported history of DVT, chronic diastolic CHF, and Crohn's disease who presents to the hospital with shortness of breath and wheezing. Patient states she felt well g oing to bed last night. She states that she uses a BiPAP to sleep. She woke up around 2 a.m. feeli ng very short of breath. She needed to sit up in bed and felt panicky. She had difficulty going ba ck to sleep. She states she used an inhaler and that seemed to help shortness of breath for a while . Then around 10 a.m., she started to become wheezy and her insisted she come to the hospit al. She states here in the hospital, she developed chest tightness mostly on the right side of the chest with some discomfort radiating down the left arm. Also reporting some left lower extremity pa in as well. She states that currently her chest pain is minimal if any, much improved from previous ly. She just had an albuterol nebulizer as well that she states helped her symptoms. She states sh felix has had a recent temperature of 101 that she checked at home, has had significant nausea, no emesi s. She has chronic abdominal pain and diarrhea that has been unchanged from usual, also occasional slight blood in the stool, it is unchanged from normal. She and her feel that she has some increasing lower extremity edema. She denies any dietary indiscretion, has not been eating a lot of salty foods. She states that she was recently weighed at her PCP office and weighed 391 pounds [facility] is close to where she is at today. She states that she is currently being worked up for a left knee replacement and went to have her la bs drawn earlier this week and was reportedly told she had an elevated white blood cell count and diallo rgery has been postponed. Looking back in the records, she has been seen by Dr. Doyle and Dr. Jeaneth soliz regarding elevated white blood cell counts in the past. It is unclear if any specific etiolo gy has been found as to the cause of this. She states that after her elevated white blood cell coun t, she was contacted by her PCP office and placed on an antibiotic which seems to be cefdinir. She is unclear specifically what is being treated with this. Of note, the patient's weight is up above 5 kg from her recent hospitalization here about a month and a half ago. PAST MEDICAL HISTORY: Chronic diastolic CHF, CML, uterine cancer, Crohn's, atrial fibrillation, sup er morbid obesity, OHS/SHANI, hypertension, history of DVT. PAST SURGICAL HISTORY: Right TKA, partial toe amputation, tonsillectomy, appendectomy, cholecystect emanuel, laminectomy. HOME MEDICATIONS: 1. Cefdinir 300 mg by mouth 2 times daily. 2. Vitamin B12 1000 mcg IM monthly. 3. Calcium 1000 mg by mouth daily. 4. Microgestin 1 tablet by mouth daily. 5. Toprol-XL 50 mg by mouth daily. 6. Xarelto 20 mg by mouth daily. 7. Pravastatin 20 mg by mouth daily. 8. Vitamin D 1500 units by mouth daily. 9. [place]-3 fatty acid 1000 mg by mouth daily. 10. Lactobacillus 1 capsule by mouth daily. 11. Calcium with magnesium 1 tablet by mouth daily. 12. Gabapentin 600 mg by mouth 3 times daily. 13. Omeprazole 40 mg by mouth daily. 14. Hydrochlorothiazide 25 mg by mouth daily. 15. Synthroid 275 mcg by mouth daily. ALLERGIES: Patient reports allergy to SULFA and MORPHINE, which resulted in hives. FAMILY HISTORY: Significant for her mother with multiple sclerosis, father with hypertension, broth er with hypertension, PUD and hyperlipidemia. Sister with hypertension and PUD. Second sister with hypertension and PUD. SOCIAL HISTORY: Patient lives at home with her , reports very rare alcohol use and denies an y history of tobacco or illicit drug use. REVIEW OF SYSTEMS: A 12-point review of systems negative except that as noted in the HPI. PHYSICAL EXAMINATION GENERAL: Patient is a middle-aged super morbidly obese female, lying in bed, in no appare nt distress. VITAL SIGNS: On admission, temperature 98.0, heart rate of 88, respiratory rate of 26, O2 saturatio n 97% on room air, blood pressure 143/62. HEENT: Head is normocephalic, atraumatic. Eyes: Pupils are equal, round, reactive to light and acc ommodation. Anicteric sclerae. ENT: Moist mucous membranes. No cervical adenopathy. LUNGS: Clear to auscultation bilaterally. No wheezes, rales or rhonchi. CARDIOVASCULAR: Regular rate and rhythm, S1 and S2 present. No murmurs, gallops or rubs. ABDOMEN: Obese, soft, nontender, nondistended. Bowel sounds positive. EXTREMITIES: I did not appreciate any significant edema, although difficult to tell as the patient is very obese and has very large legs. No pitting is noted. No cyanosis or clubbing. NEUROLOGIC: Patient is alert and oriented x3. No focal neurological deficits. SKIN: Warm, dry and well perfused. I do not appreciate any areas of erythema on the legs where the patient reports pain which is in the left calf. She does have a small bruise in the left thigh on the medial aspect. DIAGNOSTIC STUDIES/LABS DATA: White blood cell count 9.5, hematocrit of 32, platelets of 272,000. Sodium of 128, potassium 4.2, chloride of 92, carbon dioxide 27, BUN of 13, creatinine 0.93, glucos e of 177, lactic acid of 2.6, calcium of 8.3. LFTs within normal limits. Troponin of 0.01. CRP of 108. B-natriuretic peptide of 303. EKG personally reviewed shows normal sinus rhythm, Q waves in III and aVF, it is unchanged from prev iously. Chest x-ray personally reviewed shows no acute disease. ASSESSMENT AND PLAN: Shortness of breath, wheezing, with subsequent development of some chest tight ness radiating down the arm in a 52-year-old female with a past medical history of hypertension, joyce p venous thrombosis, atrial fibrillation on anticoagulation, super morbid obesity, obesity hypoventi lation syndrome/obstructive sleep apnea on home BiPAP, chronic diastolic congestive heart failure, C rohn's disease, reported history of uterine cancer and chronic myelogenous leukemia. 1. Shortness of breath and wheezing. I did not appreciate any wheezing on exam. I listened to the patient just after a nebulizer. She denies any history of asthma or chronic obstructive pulmonary d isease, but states she has been on an inhaler at home since she has been hospitalized a few times wi th pneumonia. We will continue with p.r.n. albuterol for now. Her B-natriuretic peptide is elevate d at 303 which may be even falsely lower with her obesity. It is difficult to assess for any edema, but I will give her a dose of Lasix 40 mg IV x1 as there may be some component of congestive heart failure exacerbation. I do not think that there is any evidence of pulmonary infection as the chest x-ray is relatively clear. Dr. Valente has ordered a CT of the chest. I will add a procalcitonin. Patient's CRP is chronically elevated, although currently is about double what it usually is. Agai n, I am not finding any clear evidence of infection. Her white blood cell count has normalized and she has been on her outpatient cefdinir. I will continue this for now while she is hospitalized, al though if her procalcitonin is negative, I will likely stop it. 2. Chest tightness. This developed while the patient was here in the hospital and has since resolv ed. No EKG changes. Initial troponin is negative. We will monitor the patient on telemetry and tr end her troponins overnight. Can consider an outpatient stress test as she will be unable to get on e over the weekend. 3. History of atrial fibrillation. Continue metoprolol and Xarelto. 4. Left lower extremity pain. I will check a Doppler but a deep venous thrombosis seems very unlik samantha unless he is perhaps getting some fluid off, will help with the pain. 5. Diastolic congestive heart failure. Continue home beta jena, thiazide and additional IV Lasi x as well. 6. Hypothyroidism. Continue home Synthroid. 7. Obesity hypoventilation syndrome/obstructive sleep apnea. BiPAP q.h.s. 8. DVT prophylaxis, Xarelto. 9. Code status. Patient is a full code. TIME SPENT: Total time spent on this admission, 45 minutes with half the time spent face to face wi th the patient in counseling and coordinating care. [id number]/[facility] #: [id number]
[2017-04-30] MEDS ORDERED: Temazepam CAP* 15 MG PO PRN (02:45)
[2017-04-30] MEDS ORDERED: Levothyroxine TAB* 75 MCG TAB PO SCH (06:00)
[2017-04-30] MEDS ORDERED: Levothyroxine TAB* 100 MCG TAB PO SCH (06:00)
[2017-04-30] MEDS ORDERED: Omeprazole CAP* 20 MG PO SCH (07:30)
[2017-04-30] MEDS: Gabapentin CAP(*) 300 MG PO SCH (07:36)
[2017-04-30] MEDS ORDERED: Levothyroxine TAB* 75 MCG TAB PO ONE (08:08)
--- NOTE | 2017-04-30 08:23 | DCNOTE ---
Patient seen this morning. Reports feeling better in terms of breathing and chest tightness. Urinated a lot last night. On exam, morbid obesity, lungs clear B/L, RRR, s1 and s2 present, no m/g/r, LE obesity, does not seem to be edematous. CTA showed possible mild CHF. BPs have been elevated, will start Lisinopril ( ideally would increase HCTZ but Na is already on the low side). I don't think patient has an active infection (negative procalcitonin), I don't think she needs continued ABx. Needs outpatient ID f/u to clear her for orthopedic surgery. Will discharge home with Lisinopril and instructions to weigh herself daily, contact her PCP or Causticiser if she experiences 2-3 lb weight gain over 2-3 days to consider standing or prn lasix.
[2017-04-30 08:37] VITALS: BP 150/83
[2017-04-30] MEDS: CMCS: Cefdinir cap (NF) 300 MG CAP PO SCH (08:46)
[2017-04-30] MEDS ORDERED: Hydrochlorothiazide TAB* 25 MG PO SCH (09:00)
[2017-04-30] MEDS ORDERED: CMCS: Pravastatin (NF) 20 MG TAB PO SCH (09:00)
[2017-04-30] MEDS ORDERED: Lisinopril TAB* 10 MG PO SCH (09:00)
[2017-04-30] MEDS ORDERED: Metoprolol Succinate XL TAB* 50 MG PO SCH (09:00)
[2017-04-30] MEDS ORDERED: Cholecalciferol TAB* 1000 UNITS PO SCH (09:00)
[2017-04-30] MEDS ORDERED: Rivaroxaban TAB(*) 20 MG TAB PO SCH (17:00)
--- NOTE | 2017-05-01 03:12 | DS ---
CC: Dr. Prince; Dr. Doyle; Dr. Lady Sargent; Dr. Elizabeth Irvin DISCHARGE SUMMARY: DATE OF ADMISSION: 04/29/17 DATE OF DISCHARGE: 04/30/17 PRIMARY CARE PHYSICIAN: Dr. Prince. PRINCIPAL DISCHARGE DIAGNOSES: 1. Mild acute on chronic diastolic congestive heart failure exacerbation. 2. Elevated CRP seemingly due to noninfectious etiology. SECONDARY DIAGNOSES: 1. Super morbid obesity. 2. Obesity hypoventilation syndrome. 3. Hypertension. 4. History of deep venous thrombosis. 5. Atrial fibrillation, on anticoagulation. DISCHARGE MEDICATION REGIMEN: 1. Lisinopril 10 mg by mouth daily. 2. Synthroid 225 mcg by mouth daily. 3. Hydrochlorothiazide 25 mg by mouth daily. 4. Omeprazole 40 mg by mouth daily. 5. Gabapentin 600 mg by mouth 3 times daily. 6. Calcium with magnesium 1 tablet by mouth daily. 7. Lactobacillus 1 capsule by mouth daily. 8. [place]-3 fatty acids 1000 mg by mouth daily. 9. Vitamin D3 1500 units by mouth daily. 10. Pravastatin 20 mg by mouth daily. 11. Xarelto 20 mg by mouth daily. 12. Toprol-XL 50 mg by mouth daily. 13. Microgestin 1 tablet by mouth daily. 14. Calcium 1000 mg by mouth daily. 15. Vitamin B12 1000 mcg IM monthly. STUDIES DONE DURING HOSPITALIZATION: Chest x-ray, impression: No active cardiopulmonary disease. CTA of the chest, impression: No CT evidence of pulmonary embolism, patchy densities in the dependent lower lobes could be seen as a consequence of mild congestive heart failure, pneumonitis, or infectious disease. Lower extremity Doppler: No sonographic evidence of left deep vein thrombosis. HISTORY OF PRESENT ILLNESS AND HOSPITAL SUMMARY: Please see my full history and physical for full details. Briefly, Ms. Cevallos is a 52-year-old female with past medical history as above, who presented to the hospital after waking up around 2 a.m. feeling short of breath. She reports subsequent wheezing, which brought her to the hospital and then she subsequently developed some chest tightness that she reports radiated down the left arm and also involved the left leg. The patient received an albuterol nebulizer in the emergency department, which she stated improved her symptoms. Physical exam was fairly unremarkable. She did have a mildly elevated B-natriuretic peptide at 303, which could possibly be falsely lower due to her elevated BMI. She was given a dose of Lasix with reported good urine output. By the following day, she states her symptoms had resolved. I feel that the patient may have had a mild diastolic CHF exacerbation. Her blood pressures were quite elevated here in the hospital. Ideally, I would have increased her hydrochlorothiazide; however , her sodium was slightly low, so I added on lisinopril instead. I have held off on starting a standing diuretic and instead told her to weigh herself at home and if she notices 2- to 3-pound weight gain over as many days, to call her PCP or her speech correction consultant to determine if she should go on a diuretic. The patient is currently undergoing evaluation for a possible knee replacement, but reportedly this has been delayed as she had leukocytosis on recent labs. She had an elevated CRP during this admission as well. She was reportedly placed on antibiotics as an outpatient, although it is unclear specifically what this was for. Procalcitonin checked here was negative. I stopped her antibiotics. I feel that her lab abnormalities are not necessarily due to an infectious etiology. I recommended reevaluation by Dr. Doyle to see if he feels similarly, so that she can proceed to get this knee surgery done as they feel like she has a huge amount of medical issues due to her extreme obesity and that fixing her knee is probably the first step to exercise and weight loss , which will likely improve a lot of her medical issues. TIME SPENT: Total time spent on this discharge 45 minutes. This is a summary of the hospitalization. Please see the full medical record for further details. [id number]/[facility] #: [id number] MTDD
== END 2017-04-30 10:30 | disposition home or self-care (01) ==
LOC: ED 13:15 → MEDTELE 18:30
PROVIDERS: ADMIT Hospitalist; ATTEND Hospitalist
DX: I11.0 Hypertensive heart disease with heart failure (principal); I50.33 Acute on chronic diastolic (congestive) heart failure; R79.82 Elevated C-reactive protein (CRP); E66.2 Morbid (severe) obesity with alveolar hypoventilation; E11.9 Type 2 diabetes mellitus without complications; I48.91 Unspecified atrial fibrillation; R07.9 Chest pain, unspecified; M79.604 Pain in right leg; E03.9 Hypothyroidism, unspecified; C92.10 Chronic myeloid leukemia, BCR/ABL-positive, not having achieved remission; Z86.718 Personal history of other venous thrombosis and embolism; Z79.01 Long term (current) use of anticoagulants; Z79.899 Other long term (current) drug therapy; Z88.2 Allergy status to sulfonamides; Z88.5 Allergy status to narcotic agent
CPT/HCPCS: 36415; 71020; 71275; 80053; 83605; 83880; 84145; 84484; 85025; 86140; 87040; 93005; 94640; 94660; 94760; 96361; 96374; 96375; 99285; A9270-GY; G0378; J1170; J1940; J2405; Q9967

== ENCOUNTER 2017-06-20 10:14 | Observation (INO) | payer BC, MEDICARE ==
[2017-06-20] MEDS ORDERED: methylPREDNISolone 125 MG* 2 ML VIAL IV ONE (10:50)
[2017-06-20] MEDS ORDERED: Albuterol/Ipratropium NEB.SOL* Albuterol 2.5 MG/Ipratropium 0.5 MG 3 ML INH ONE (10:50)
--- NOTE | 2017-06-20 11:29 | RAD ---
INDICATION: Short of breath COMPARISON: Chest x-ray 2016 TECHNIQUE: PA and lateral dual-energy views were obtained. FINDINGS: Bones/Soft Tissues: There are no acute bony findings. Cardiomediastinal: The cardiomediastinal silhouette is normal. Lungs: There are no infiltrates. Pleura: There are no pleural effusions. Other: None IMPRESSION: NO ACTIVE DISEASE.
[2017-06-20 11:39] LABS: Hematocrit 30 % (35-47); Mean Corpuscular HGB Conc 33 g/dl (31-36); Mean Corpuscular Hemoglobin 30 pg (27-31); Mean Corpuscular Volume 91 fL (80-97); Mean Platelet Volume 8 um3 (7.4-10.4); Red Blood Count 3.32 10^6/ul (4.0-5.4); Red Cell Distribution Width 14 % (10.5-15)
--- NOTE | 2017-06-20 11:43 | RAD ---
INDICATION: Dysarthria. COMPARISON: Comparison is made with a prior CT of the brain from January 17, 2015 and a prior MRI of the brain from 2016. TECHNIQUE: Contiguous axial sections of the brain were obtained from the skull base to the vertex without contrast. FINDINGS: The ventricles, cisterns and sulci are within normal limits. No significant focal abnormality or mass effect is seen. There is no evidence for hemorrhage. There is a small nodule within the right maxillary sinus measuring 6 mm in size most consistent with a mucous retention cyst or polyp. The paranasal sinuses and mastoid air cells otherwise appear clear. IMPRESSION: NO EVIDENCE FOR GROSS ACUTE INFARCT, MASS EFFECT OR HEMORRHAGE.
[2017-06-20 11:56] LABS: Albumin 3.5 g/dL (3.2-5.2); C Reactive Protein 71.38 mg/L (< 5.00); Calcium 8.5 mg/dL (8.6-10.3); EGFR Non-African American 53.6 (>60); Globulin 3.1 g/dL (2-4); Magnesium 1.5 mg/dL (1.9-2.7); Potassium 4.2 mmol/L (3.5-5.0); Total Bilirubin 0.4 mg/dL (0.2-1.0); Total Protein 6.6 g/dL (6.4-8.9)
[2017-06-20 12:40] LABS: TSH (Thyroid Stimulating Horm) 2.48 mcIU/mL (0.34-5.60)
[2017-06-20] MEDS ORDERED: Albuterol 2.5 MG/3 ML NEB.SOL* (0.083%) INH PRN (13:02)
[2017-06-20] MEDS ORDERED: Furosemide IV* 10 MG/ML VIAL (40 MG) IV SLOW PU ONE (13:02)
--- NOTE | 2017-06-20 13:03 | ED ---
Domonique Lopez Nilda, scribed for Eliseo Benz MD on 06/20/17 at 1051 . Shortness of Breath - HPI Summary HPI Summary: This patient is a 52 year old F [facility] by family member with a chief complaint of constant SOB with wheezing since this morning. Symptoms alleviated by nothing including albuterol administered MEDIA OPERATOR. Patient reports weakness, pallor, stuttering, eye irritation, and near-syncope ( yesterday but resolved). Per son, patient has slurred speech (presently). Patient denies exacerbated difficulty with ambulation (normally uses walker) and unilateral weakness. - History of Current Complaint Chief Complaint: EDShortnessOfBreath Time Seen by Provider: 06/20/17 10:34 Hx Obtained From: Patient, Family/Coloring Room Worker Onset/Duration: Sudden Onset, Lasting Hours Timing: Constant Dyspnea At: Rest Alleviating Factors: Nothing Associated Signs & Symptoms: Wheezing - Allergy/Home Medications Allergies/Adverse Reactions: Allergies Allergy/AdvReac Type Severity Reaction Status Date / Time Morphine Allergy Severe Hives Verified 06/20/17 10:17 Sulfa Antibiotics Allergy Severe Hives Verified 06/20/17 10:17 PMH/Surg Hx/FS Hx/Imm Hx Endocrine/Hematology History: Reports: Hx Diabetes - type 2, Hx Thyroid Disease - hypo Cardiovascular History: Reports: Hx Congestive Heart Failure, Hx Hypertension - on meds Denies: Hx Pacemaker/ICD, Other Cardiovascular Problems/Disorders Respiratory History: Reports: Hx Pneumonia Denies: Other Respiratory Problems/Disorders GI History: Reports: Hx Crohn's Disease Denies: Other GI Disorders History: Denies: Hx Renal Disease Musculoskeletal History: Reports: Hx Arthritis - hands, toes, hips, Hx Rheumatoid Arthritis - Has had Remicaide 06/2014 Sensory History: Reports: Hx Contacts or Glasses Denies: Hx Hearing Aid, Hx Hearing Problem Opthamlomology History: Reports: Hx Contacts or Glasses Neurological History: Reports: Hx Migraine - only a few, Hx Nerve Disease - neuopathy feet and hands up to knees Denies: Other Neuro Impairments/Disorders Psychiatric History: Denies: Hx Panic Disorder - Surgical History Surgery Procedure, Year, and Place: Cholecystectomy , 1989, adi , Colon resection 2010-Crohn's. appendectomy, 1975. tonsilectomy 1965. L4-L5 - [place]- CALCIUM DEPOSITS REMOVED. Lt 3RD TOE - PARTIAL APUTATED, RELEASED TENDONS IN NOE TOES. Rt KNEE REPLACEMENT. 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 body- [facility] Denies: Traveled Outside the [place] in Last 30 Days - Family History Known Family History: Positive: Cardiac Disease, Hypertension, Diabetes - Social History Alcohol Use: Rare Alcohol Amount: holidays Substance Use Type: Reports: None, Prescribed Smoking Status (MU): Never Smoked Tobacco Review of Systems Positive: Other - pallor (resolved) Positive: Other - eye irritation (resolved) Positive: Shortness Of Breath, Other - wheezing Neurological: Other - stuttering speech (resolved); negative exacerbated difficulty with ambulation and unilateral weakness Positive: Weakness - (resolved), Syncope - near syncope (resolved), Slurred Speech All Other Systems Reviewed And Are Negative: Yes Physical Exam Triage Information Reviewed: Yes Vital Signs On Initial Exam: Initial Vitals Temp Pulse Resp BP Pulse Ox 98 F 85 20 161/86 98 06/20/17 10:23 06/20/17 10:23 06/20/17 10:23 06/20/17 10:23 06/20/17 10:23 Vital Signs Reviewed: Yes Appearance: Positive: Well-Appearing, No Pain Distress, Obese Skin: Positive: Warm, Skin Color Reflects Adequate Perfusion, Dry Head/Face: Positive: Normal Head/Face Inspection Eyes: Positive: Normal ENT: Positive: Normal ENT inspection Neck: Positive: Supple, Nontender Respiratory/Lung Sounds: Positive: Breath Sounds Present, Wheezes - Diffuse expiratory wheezes Cardiovascular: Positive: RRR Abdomen Description: Positive: Nontender, Soft Bowel Sounds: Positive: Present Musculoskeletal: Positive: Normal Neurological: Positive: Normal Psychiatric: Positive: Normal, Affect/Mood Appropriate - Regan Coma Scale Coma Scale Total: 15 Diagnostics - Vital Signs Vital Signs Temp Pulse Resp BP Pulse Ox 06/20/17 10:25 86 99 06/20/17 10:23 98 F 85 20 161/86 98 - Laboratory Lab Results: Lab Results 06/20/17 06/20/17 06/20/17 Range/Units 11:25 11:25 11:25 WBC 11.0 H (3.5-10.8) 10^3/ul RBC 3.32 L (4.0-5.4) 10^6/ul Hgb 10.0 L (12.0-16.0) g/dl Hct 30 L (35-47) % MCV 91 (80-97) fL MCH 30 (27-31) pg MCHC 33 (31-36) g/dl RDW 14 (10.5-15) % Plt Count 291 (150-450) 10^3/ul MPV 8 (7.4-10.4) um3 Neut % (Auto) 77.4 (38-83) % Lymph % (Auto) 14.7 L (25-47) % [place] % (Auto) 2.7 (1-9) % Eos % (Auto) 4.6 (0-6) % Baso % (Auto) 0.6 (0-2) % Absolute Neuts (auto) 8.5 H (1.5-7.7) 10^3/ul Absolute Lymphs (auto) 1.6 (1.0-4.8) 10^3/ul Absolute Monos (auto) 0.3 (0-0.8) 10^3/ul Absolute Eos (auto) 0.5 (0-0.6) 10^3/ul Absolute Basos (auto) 0.1 (0-0.2) 10^3/ul Absolute Nucleated RBC 0 10^3/ul Nucleated RBC % 0 INR (Anticoag Therapy) (0.89-1.11) Sodium 126 L (133-145) mmol/L Potassium 4.2 (3.5-5.0) mmol/L Chloride 92 L (101-111) mmol/L Carbon Dioxide 28 (22-32) mmol/L Anion Gap 6 (2-11) mmol/L BUN 15 (6-24) mg/dL Creatinine 1.07 H (0.51-0.95) mg/dL Est GFR ( Amer) 69.0 (>60) Est GFR (Non-Af Amer) 53.6 (>60) BUN/Creatinine Ratio 14.0 (8-20) Glucose 211 H (70-100) mg/dL Calcium 8.5 L (8.6-10.3) mg/dL Magnesium 1.5 L (1.9-2.7) mg/dL Total Bilirubin 0.40 (0.2-1.0) mg/dL AST 13 (13-39) U/L ALT 9 (7-52) U/L Alkaline Phosphatase 48 (34-104) U/L Troponin I 0.00 (<0.04) ng/mL C-Reactive Protein 71.38 H (< 5.00) mg/L B-Natriuretic Peptide 180 H ( - 100) pg/mL Total Protein 6.6 (6.4-8.9) g/dL Albumin 3.5 (3.2-5.2) g/dL Globulin 3.1 (2-4) g/dL Albumin/Globulin Ratio 1.1 (1-3) TSH 2.48 (0.34-5.60) mcIU/mL 06/20/17 Range/Units 11:25 WBC (3.5-10.8) 10^3/ul RBC (4.0-5.4) 10^6/ul Hgb (12.0-16.0) g/dl Hct (35-47) % MCV (80-97) fL MCH (27-31) pg MCHC (31-36) g/dl RDW (10.5-15) % Plt Count (150-450) 10^3/ul MPV (7.4-10.4) um3 Neut % (Auto) (38-83) % Lymph % (Auto) (25-47) % [place] % (Auto) (1-9) % Eos % (Auto) (0-6) % Baso % (Auto) (0-2) % Absolute Neuts (auto) (1.5-7.7) 10^3/ul Absolute Lymphs (auto) (1.0-4.8) 10^3/ul Absolute Monos (auto) (0-0.8) 10^3/ul Absolute Eos (auto) (0-0.6) 10^3/ul Absolute Basos (auto) (0-0.2) 10^3/ul Absolute Nucleated RBC 10^3/ul Nucleated RBC % INR (Anticoag Therapy) 0.90 (0.89-1.11) Sodium (133-145) mmol/L Potassium (3.5-5.0) mmol/L Chloride (101-111) mmol/L Carbon Dioxide (22-32) mmol/L Anion Gap (2-11) mmol/L BUN (6-24) mg/dL Creatinine (0.51-0.95) mg/dL Est GFR ( Amer) (>60) Est GFR (Non-Af Amer) (>60) BUN/Creatinine Ratio (8-20) Glucose (70-100) mg/dL Calcium (8.6-10.3) mg/dL Magnesium (1.9-2.7) mg/dL Total Bilirubin (0.2-1.0) mg/dL AST (13-39) U/L ALT (7-52) U/L Alkaline Phosphatase (34-104) U/L Troponin I (<0.04) ng/mL C-Reactive Protein (< 5.00) mg/L B-Natriuretic Peptide ( - 100) pg/mL Total Protein (6.4-8.9) g/dL Albumin (3.2-5.2) g/dL Globulin (2-4) g/dL Albumin/Globulin Ratio (1-3) TSH (0.34-5.60) mcIU/mL Result Diagrams: 06/20/17 11:25 06/20/17 11:25 Lab Statement: Any lab studies that have been ordered have been reviewed, and results considered in the medical decision making process. - Radiology CXR Radiology Interpretation Completed By: Radiologist - CT Brain CT Interpretation Completed By: Radiologist - No evidence for gross acute infarct, mass effect or hemorrhage. ED physician has reviewed this radiology report and agrees. - EKG 1051 Cardiac Rate: NL - 85 bpm EKG Rhythm: Sinus Rhythm EKG Interpretation: Non-specific Lateral T-wave depression Course/Dx - Course Course Of Treatment: Ms. Cevallos presented with her with a C/O dysarthria and ataxia which started today although it is unclear exactly when. She has been SOB also with a cough and has been using her inhaler at home, most recently 90 minutes ago. Her PE was equivocal and non focal for me. She normally walks with a walker and I can't tell if she is more ataxic. She clearly is breathing marginally with diffuse wheezes and the hospitalists are admitting her for further work up. - Diagnoses Provider Diagnoses: Bronchospasm, Ataxia Discharge - Discharge Plan Condition: Stable Disposition: ADMITTED TO [facility] The documentation as recorded by the Domonique tamayo Nilda accurately reflects the service I personally performed and the decisions made by me, Eliseo Benz MD.
[2017-06-20] MEDS ORDERED: Magnesium Sulfate 2 GM IV* 2 GM/50 ML BAG IVPB ONE (13:17)
[2017-06-20 13:59] LABS: Urine Bacteria Absent (Absent); Urine Bilirubin Negative (Negative); Urine Glucose Negative (Negative); Urine Nitrite Negative (Negative)
[2017-06-20] MEDS ORDERED: Albuterol/Ipratropium NEB.SOL* Albuterol 2.5 MG/Ipratropium 0.5 MG 3 ML INH SCH ×2 (14:00)
[2017-06-20] MEDS: Albuterol/Ipratropium NEB.SOL* Albuterol 2.5 MG/Ipratropium 0.5 MG 3 ML INH SCH ×3 (14:38→23:39)
[2017-06-20] MEDS: Heparin VIAL(*) 5000 UNITS/ML VIAL (FIVE THOUSAND) SUBCUT SCH ×2 (14:41→22:56)
[2017-06-20] MEDS ORDERED: Perflutren Lipid Microsphere* 3 ML VIAL ONE (15:19)
--- NOTE | 2017-06-20 16:08 | ECHO ---
Patient: MICHAEL ARENAS [facility] Rec#: [id number] : 1965 Date: 06/20/2017 Age: 52y Height: 162.56 cm / 64.0 in Weight: 174.63 kg / 384.9 lbs Sex: F BSA: 2.58 Room#: 431 Admit Date#: 06/20/2017 Type: Inpatient Referring: Hakeem Morley NP Reading: Serafin Mckeon MD Layup Worker: Sivan Felix RDCS CC: Martin Prince MD Transthoracic Echocardiogram Indication: Shortness of breath, CHF BP: 122/90 HR: 95 Rhythm: NSR Findings History: HTN, CHF, hypothyroidism, MO, DMII, s/p right total knee replacement. Technical Comments: The study is technically difficult. The study is technically limited due to patient body habitus. Completed at 1600. Left Ventricle: The left ventricular chamber size is normal. Mild concentric left ventricular hypertrophy is observed. Global left ventricular wall motion and contractility are within normal limits. There is normal left ventricular systolic function. The estimated ejection fraction is 55-60%. There is no consistent Doppler evidence of clinically significant diastolic dysfunction. Left Atrium: The left atrium is severely dilated. Right Ventricle: Moderator Band present. The right ventricular cavity size is normal. The right ventricular global systolic function is normal. Right Atrium: The right atrial cavity size is severely dilated. Aortic Valve: The aortic valve is trileaflet. The aortic valve leaflets are mildly thickened. There is a trace of aortic regurgitation. There is no evidence of aortic stenosis. Mitral Valve: The mitral valve leaflets are mildly thickened. There is trace to mild mitral regurgitation. There is no evidence of mitral stenosis. Tricuspid Valve: The tricuspid valve leaflets are normal. There is mild to moderate tricuspid regurgitation. The right ventricular systolic pressure is estimated at 47 mmHg. There is evidence of moderate pulmonary hypertension. There is no tricuspid stenosis. Pulmonic Valve: The pulmonic valve appears normal. There is a trace pulmonic regurgitation. There is no pulmonic stenosis. Pericardium: There is no significant pericardial effusion. A pericardial fat pad is visualized. Aorta: There is mild dilatation of the ascending aorta. There is no dilatation of the aortic arch. The aortic root is normal in size. Pulmonary Artery: The main pulmonary artery appears normal. Venous: The venous system is not well visualized. The inferior vena cava is not visualized. Contrast: Definity was used to optimize study. 3 mL of diluted Definity was utilized. Intravenous contrast was used to enhance endocardial border definition. Conclusions Global left ventricular wall motion and contractility are within normal limits. There is normal left ventricular systolic function. The estimated ejection fraction is 55-60%. The left atrium is severely dilated. The aortic valve leaflets are mildly thickened. There is no evidence of aortic stenosis. There is trace to mild mitral regurgitation. There is mild to moderate tricuspid regurgitation. There is evidence of moderate pulmonary hypertension. There is no significant pericardial effusion. Measurements Name Value Normal Range RVIDd (AP) 2D 3 cm (0.9 - 2.6) RVDdMajor (2D) 4.4 cm (2.2 - 4.4) RAd ISD 4CH 7.1 cm (3.4 - 4.9) RA (A4C)W 6.1 cm (2.9 - 4.6) IVSd (2D) 1.2 cm (0.6 - 1) LVPWd (2D) 1.1 cm (0.6 - 1) LVIDd (2D) 4.8 cm (3.6 - 5.4) LVIDs (2D) 3.1 cm - LV FS (2D) 35 % (25 - 45) Aortic Annulus 1.8 cm (1.4 - 2.6) Ao root diameter (2D) 3.4 cm (2.1 - 3.5) Ascending Ao 3.5 cm (2.1 - 3.4) Aortic arch 2.6 cm (1.8 - 3.4) LA dimension (AP) 2D 4.3 cm (2.3 - 3.8) LAd ISD 4CH 6.1 cm (2.9 - 5.3) LA ISD 4CH W 5.3 cm (2.5 - 4.5) Name Value Normal Range LA ESV SP 4CH (A/L) 128 ml - LA ESV SP 2CH (A/L) 198 ml - LA ESV BP (A/L) 170 ml - LA ESV BP (A/L) index 65.45 ml/m2 - LA ESV SP 4CH (MOD) 114 ml - LA ESV SP 2CH (MOD) 189 ml - Name Value Normal Range MV E-wave Vmax 1.5 m/sec - MV deceleration time 132 msec - MV A-wave Vmax 1.2 m/sec - MV E:A ratio 1.38 ratio - LV septal e' Vmax 0.12 m/sec - LV lateral e' Vmax 0.1 m/sec - LV E:e' septal ratio 12.5 ratio - LV E:e' lateral ratio 15 ratio - Name Value Normal Range AV Vmax 1.7 m/sec - AV VTI 29.5 cm - AV peak gradient 11.16 mmHg - AV mean gradient 5.75 mmHg - LVOT Vmax 1.3 m/sec - LVOT VTI 22.85 cm - LVOT peak gradient 6.83 mmHg - LVOT mean gradient 4.12 mmHg - JULIAN Vmax 1.11 m/sec - Name Value Normal Range TR Vmax 3.13 m/sec - TR peak gradient 39 mmHg - RAP 8 mmHg - RVSP 47 mmHg - Name Value Normal Range PV Vmax 1.12 m/sec - PV peak gradient 5.02 mmHg -
--- NOTE | 2017-06-20 16:36 | HP ---
ADDENDUM NOW INCLUDED ON THIS REPORT CC: Dr. Prince * HISTORY AND PHYSICAL: DATE OF ADMISSION: 06/20/17 PRIMARY CARE PROVIDER: Dr. Prince. ATTENDING PHYSICIAN WHILE IN THE HOSPITAL: Dr. Sekou Lin * (report dictated by Hakeem Morley NP). CHIEF COMPLAINT: 1. Wheezing. 2. Difficulty with speech. 3. Unsteady gait. HISTORY OF PRESENT ILLNESS: Ms. Cevallos is a 52-year-old female patient with multiple medical problems coming into the ER today, stating that over the last 48 hours, she has got progressive worsening shortness of breath. She has noticed that she has been wheezing more and more. She says that she was actually at her doctor's office today, they weighed her and they noted that she had a 12-pound weight gain since the last time she was there, 3 weeks ago. She said she has not had any change in her diet. She does carry a history of CHF; SHANI, on chronic BiPAP at night. She also has history of hypertension, Crohn's, CML, uterine cancer, and history of DVT, on chronic anticoagulation. She says that she noticed wheezing yesterday morning. She noticed that she had some garbled speech yesterday morning as well. Throughout the day it got better, but her did state that she had been acting more drowsy and just not acting herself. did state that he noted again today when she woke up, she had wheezing and became audible and could hear. There have been no reports of recent fevers, cough, chills. She does state that recently, she was exposed to GOLDENROD, which she has an allergy to. She says typically what she gets is watery eyes, but the wheezing was new. There has been no cough. No fevers that she is awake of and there have been no reports of chills. The patient again denied any chest discomfort. No abdominal pain. There was no nausea, no vomiting. There was no dysuria, no frequency. She does admit to having some vaginal bleeding, which she is being worked in the outpatient setting. There was again concern because of the wheezing and her breathing, she came into the ED, was evaluated, and we were asked to evaluate for admission. PAST MEDICAL HISTORY: Significant for: 1. Hypertension. 2. AFib. 3. SHANI. 4. DVT. 5. CHF, diastolic. 6. Crohn's. 7. CML. 8. Uterine cancer. PAST SURGICAL HISTORY: She has had: 1. Right total knee arthroplasty. 2. Partial toe amputation. 3. Tonsillectomy. 4. Appendectomy. 5. Cholecystectomy. 6. Laminectomy. 7. She has had a right fallopian tube removed. MEDICATIONS: Home meds according to list that we were able to obtain include: 1. Xarelto 20 mg p.o. daily. 2. Pravachol 20 mg p.o. q.a.m. 3. Prilosec 40 mg daily. 4. Fish oil 1000 mg daily. 5. Microgestin FE 1 tablet p.o. daily. 6. Toprol-XL 50 mg daily. 7. Lisinopril 10 mg p.o. daily. 8. Synthroid 225 mcg daily. 9. Probiotic 1 capsule daily. 10. Hydrochlorothiazide 25 mg daily. 11. Gabapentin 600 mg p.o. t.i.d. 12. B12 1000 mcg IM monthly. 13. Vitamin D3 1500 units p.o. daily. 14. Calcium 1000 mg daily. 15. Calcium with magnesium 1 tablet p.o. daily. ALLERGIES TO MEDICATIONS: Include MORPHINE and SULFA. FAMILY HISTORY: The mother had a history of MS. Father had high blood pressure. SOCIAL HISTORY: She does not smoke. She rarely drinks alcohol. Surrogate decision maker is her . REVIEW OF SYSTEMS: There is no documented fever. There was a significant weight change of 12-pound weight increase in 3 weeks. The patient denied having any chest discomfort. There is no orthopnea, no nocturnal dyspnea. There is no shortness of breath. There was no abdominal pain. No nausea, no vomiting. There was no dysuria, no frequency. No seizure, no loss of consciousness. No pruritus and no skin ulcerations. Review of 14 systems completed, all others negative. PHYSICAL EXAMINATION GENERAL: At this time, Ms. Cevallos is a 52-year-old female patient. She is sitting in the ER stretcher. She does not appear to be in any acute distress. VITAL SIGNS: Reveal blood pressure 122/90 with a pulse of 78, respirations 18, O2 sat 97%, temperature 98.0. HEENT: Head: Atraumatic, normocephalic. Eyes: EOMs are intact. Sclerae anicteric, not pale. Throat: Oral mucosa appears to be moist. No oropharyngeal erythema. NECK: Supple. LUNGS: Clear to auscultation bilaterally. She had wheezing noted throughout. No rales or rhonchi. HEART: Heart sounds S1, S2. Regular rate and rhythm. No murmurs, rubs, or gallops. ABDOMEN: Soft, flat, nontender. Bowel sounds present. EXTREMITIES: She does have 2+ pitting edema bilaterally. She has 5/5 strength. NEUROLOGIC: She is awake, alert, oriented x3. Her speech to me is clear. Tongue is midline. Election Assistant were equal. Sbmcts-la-weko intact bilaterally. Heel- to-quigley intact widely. She had no gross focal deficit. No facial drooping. SKIN: Intact. DIAGNOSTIC STUDIES/LAB DATA: Today revealed WBC of 11.0; RBC of 3.32; hemoglobin of 10; hematocrit 30, near her baseline; platelet count 290. INR 0.90. Sodium of 126, potassium of 4.2, chloride of 92, bicarb 28, BUN 15, creatinine 1.07, glucose of 211, calcium of 8.5, her mag was 1.5. Total bili 0.4, AST 13, ALT 9, alk phos 48. Troponin 0. CRP is 71. Albumin 3.5. She did have a brain CT obtained today which revealed, impression: No evidence of gross acute infarct, mass effect, or hemorrhage. Chest x-ray showed no active disease. EKG showed normal sinus rhythm, rate 85. She did have some subtle depression of V6 that has been there in the past. No acute changes were noted. Old medical records were reviewed. ASSESSMENT AND PLAN: Ms. Cevallos is a 52-year-old female patient coming into the ER today with complaints of wheezing, trouble with speech, and unsteady gait. She will be admitted under observation status for: 1. Wheezing and shortness of breath. Again, I suspect at this point, she has no history of asthma or chronic obstructive pulmonary disease, she may have reactive disease from being exposed to GOLDENROD. Also, could be congestive heart failure, because she did have a 12-pound weight gain and she does not really follow the fluid restriction. My plan is to go ahead and give her 40 of Lasix IV, see how she improves. Put her on nebs, inhaled steroids, and monitor her closely. 2. Dysarthria. Again, at this point, speech appears to be clear. She is not having any focal deficits. My plan will be to get an MRI. If this is positive , then I will get Neurology input and we will monitor for any symptoms. I will order neuro checks every 4 hours. 3. Hyponatremia. This is mild. I do not think this is causing her symptoms. She has been low like this in the past. I am holding her hydrochlorothiazide and I will send off urine studies. 4. History of obstructive sleep apnea. I have ordered BiPAP. 5. Hypertension. Continue meds as prescribed. 6. Atrial fibrillation. She appears to be rate controlled. Continue with her Xarelto. 7. Deep venous thrombosis. Again, she will be on Xarelto. 8. History of Crohn's. Not an active issue. Currently, we will monitor. Continue meds as prescribed. She is to follow with primary. 9. Chronic myeloid leukemia. Her white count appears to be stable. 10. Uterine cancer. She can follow with Dr. Sargent. 11. Vaginal bleeding and concern for uterine mass which was found on outpatient ultrasound. She can follow with Dr. Prince. She is to have a pelvis MRI which is being scheduled and we will monitor her H and H closely. 12. Fluids, electrolytes, and nutrition: She can have a heart healthy diet. 13. Code status. Full code. TIME SPENT: On this admission is 60 minutes, greater than half the time spent face- to-face with the patient obtaining my history and physical, the other half the time was spent going over the plan of care with the patient and implementing the plan of care. I did discuss the plan of care my attending, Dr. Lin; he is in agreement. HAKEEM MORLEY NP ADDENDUM: She is no longer on the Xarelto. We will get an accurate med list from the patient, that she is to bring in her pill bottles to update her list and we will stop the Xarelto for now and for DVT prophylaxis, I will place her on heparin subcu. HAKEEM MORLEY NP [id number]/CPS #: [id number]/CPS #: [id number] DACIA
[2017-06-20] MEDS: Gabapentin CAP(*) 300 MG PO SCH ×2 (16:56→20:34)
--- NOTE | 2017-06-20 18:14 | HP ---
HISTORY AND PHYSICAL: ADDENDUM: She is no longer on the Xarelto. We will get an accurate med list from the patient, that she is to bring in her pill bottles to update her list and we will stop the Xarelto for now and for DVT prophylaxis, I will place her on heparin subcu. CLAUDIO HALL, IMPROVEMENT ANALYST [id number]/[facility] #: [id number] DACIA
--- NOTE | 2017-06-20 19:31 | RAD ---
HISTORY: Shortness of breath and slurred speech COMPARISONS: Similar examination dated October 04, 2016 TECHNIQUE: The following sequences were obtained of the head: Sagittal T1-weighted images, axial T2-weighted images, axial FLAIR images, axial susceptibility weighted images, axial T1-weighted images. Additionally, axial diffusion-weighted images were obtained with calculated apparent diffusion coefficients.. FINDINGS: HEMORRHAGE/INFARCT: There is no hemorrhage or acute infarct. MASSES/SHIFT: There is no mass or shift. EXTRA-AXIAL SPACES/MENINGES: There are no extra-axial fluid collections. SULCI AND VENTRICLES: The sulci and ventricles are normal in size and position for the patient's stated age. CEREBRUM: There are no focal parenchymal abnormalities. BRAINSTEM: There are no focal parenchymal abnormalities. CEREBELLUM: There are no focal parenchymal abnormalities. The cerebellar tonsils are normal in size and position. SELLA: The sella is normal. PINEAL: The pineal region is clear. CP ANGLE/TEMPORAL BONES: The labyrinthine structures are grossly normal. VESSELS: Normal flow-voids are noted within the visualized vertebral vasculature. DIFFUSION ABNORMALITIES: There are no diffusion abnormalities. PARANASAL SINUSES/MASTOIDS: Lung the medial aspect of the right maxillary sinus is an 8 mm inspissated secretion. The visualized paranasal sinuses are otherwise clear. ORBITS: The orbits are unremarkable. BONES AND SOFT TISSUE: No bone or soft tissue abnormalities are noted. IMPRESSION: NORMAL MRI OF THE BRAIN.
[2017-06-20] MEDS: Mometasone/Formoter 200/5 MDI INH SCH (19:36)
[2017-06-20] MEDS: Acetaminophen TAB* 325 MG PO PRN (20:33)
[2017-06-21] MEDS ORDERED: amLODIPine TAB* 5 MG PO ONE (00:06)
[2017-06-21] MEDS: Albuterol/Ipratropium NEB.SOL* Albuterol 2.5 MG/Ipratropium 0.5 MG 3 ML INH SCH ×2 (03:47→08:09)
[2017-06-21] MEDS: Acetaminophen TAB* 325 MG PO PRN ×2 (04:18→09:31)
[2017-06-21] MEDS ORDERED: Levothyroxine TAB* 25 MCG TAB PO SCH (06:00)
[2017-06-21] MEDS ORDERED: Levothyroxine TAB* 100 MCG TAB PO SCH (06:00)
[2017-06-21] MEDS: Heparin VIAL(*) 5000 UNITS/ML VIAL (FIVE THOUSAND) SUBCUT SCH (06:06)
[2017-06-21 07:51] VITALS: BP 135/72
[2017-06-21] MEDS: Mometasone/Formoter 200/5 MDI INH SCH (08:09)
[2017-06-21] MEDS ORDERED: Rivaroxaban TAB(*) 20 MG TAB PO SCH (09:00)
[2017-06-21] MEDS ORDERED: Metoprolol Succinate XL TAB* 50 MG PO SCH (09:00)
[2017-06-21] MEDS ORDERED: amLODIPine TAB* 5 MG PO SCH (09:00)
[2017-06-21] MEDS ORDERED: Lisinopril TAB* 10 MG PO SCH (09:00)
[2017-06-21] MEDS ORDERED: Omeprazole CAP* 20 MG PO SCH (09:00)
[2017-06-21] MEDS ORDERED: Atorvastatin* 10 MG TAB PO SCH (09:00)
[2017-06-21] MEDS: Gabapentin CAP(*) 300 MG PO SCH (09:31)
--- NOTE | 2017-06-21 09:59 | DCNOTE ---
Patient seen this morning. Says she feels back to baseline. LE edema resolved, SOB/wheezing has resolved. Says she drinks eight 8 oz glasses of water each day which is actually down from 24 glasses in the past. Stressed the importance of restricting the fluid and sodium intake. On exam, super-morbid obese F, laying in bed in NAD, lungs CTA B/L, no w/r/r, abd obese, soft NTND, BS+, RRR, s1 and s2 present, no m/g/r, no LE edema Will discharge home with PO Lasix.
--- NOTE | 2017-06-22 01:20 | DS ---
CC: Dr. Martin Prince * DISCHARGE SUMMARY: DATE OF ADMISSION: 06/20/17 DATE OF DISCHARGE: 06/21/17 PRIMARY CARE PHYSICIAN: Dr. Martin Prince. PRINCIPAL DISCHARGE DIAGNOSIS: Acute on chronic diastolic congestive heart failure exacerbation. SECONDARY DIAGNOSES: Hypertension, atrial fibrillation, obstructive sleep apnea , history of deep vein thrombosis, diastolic congestive heart failure, Crohn's disease, chronic myeloid leukemia, uterine cancer. DISCHARGE MEDICATION REGIMEN: 1. Albuterol 1 puff inhaled every 4 hours as needed for shortness of breath or wheezing. 2. Lasix 20 mg by mouth daily, which is new per the patient. 3. Microgestin 1 tablet by mouth daily. 4. Omeprazole 40 mg by mouth daily. 5. Pravastatin 20 mg by mouth daily. 6. Lactobacillus 1 capsule by mouth daily. 7. Synthroid 125 mcg by mouth daily. 8. Lisinopril 10 mg by mouth daily. 9. Metoprolol succinate 50 mg by mouth daily. 10. Vitamin D3 1500 units by mouth daily. 11. Vitamin B12 injection 1000 mcg IM monthly. 12. Gabapentin 600 mg by mouth 3 times daily. 13. Hydrochlorothiazide 25 mg by mouth daily. 14. Calcium with magnesium 1 tablet by mouth daily. 15. Calcium 1000 mg by mouth daily. STUDIES DONE DURING HOSPITALIZATION: CT of the brain, impression: No evidence for gross acute infarct, mass effect or hemorrhage. Chest x-ray, impression: No active disease. MRI of the brain without contrast, impression: Normal MRI of the brain. Transthoracic echocardiogram, conclusions: Global left ventricular wall motion contractility within normal limits. Normal left ventricular systolic function, estimated ejection fraction of 55% to 60%. The left atrium is severely dilated. The aortic valve leaflets are mildly thickened. There is no evidence of aortic stenosis, trace to mild mitral regurgitation, mild tricuspid regurgitation, moderate pulmonary hypertension, no significant pericardial effusion. HISTORY OF PRESENT ILLNESS AND HOSPITAL SUMMARY: Please see the full history and physical by Hakeem Morley NP for full details. Briefly, Ms. Cevallos is a 52- year-old female with past medical history as above, who presented to the hospital with progressive shortness of breath and she felt that she also had a 12-pound weight gain in the past 3 weeks, although the weights in our system seem relatively stable. The patient does states that she drinks lot of fluid. She states she used to have over 28 ounce glasses of water a day; however, she has cut this recently on closer to 8 to 10. The patient has also reportedly had some garbled speech and the felt that she was acting a little bit more drowsy than normal. She thought she may have been exposed to something that caused her allergies to flare up. She was evaluated in the emergency department. Aside from some mild hyponatremia, her labs looked relatively unremarkable. Her B-natriuretic peptide was 180; however , this may be falsely lowered due to her obesity. The patient was given nebulizers as well as 40 mg of IV Lasix with about 2 L of urine output overnight and a decrease in 3 kg. I think the patient's symptoms were primarily due to fluid overload at a previous hospitalization. I did not discharge her on a daily Lasix and encouraged her to follow her weights closely; however, I think at this point she may need to be on Lasix daily, which I will start. She will follow up closely with her PCP. TIME SPENT: Total time spent on this discharge was 45 minutes. This is a summary of the hospitalization, please see the full medical record for further details. [id number]/[facility] #: [id number] MTDD
== END 2017-06-21 10:30 | disposition home or self-care (01) ==
LOC: ED 10:14 → MEDTELE 13:00
PROVIDERS: ADMIT Internal Medicine; ATTEND Hospitalist
DX: I11.0 Hypertensive heart disease with heart failure (principal); I50.33 Acute on chronic diastolic (congestive) heart failure; E87.1 Hypo-osmolality and hyponatremia; I48.91 Unspecified atrial fibrillation; G47.33 Obstructive sleep apnea (adult) (pediatric); E11.9 Type 2 diabetes mellitus without complications; Z86.718 Personal history of other venous thrombosis and embolism; K50.90 Crohn's disease, unspecified, without complications; C91.10 Chronic lymphocytic leukemia of B-cell type not having achieved remission; I51.7 Cardiomegaly; N93.9 Abnormal uterine and vaginal bleeding, unspecified; Z88.2 Allergy status to sulfonamides; Z88.8 Allergy status to other drugs, medicaments and biological substances; Z79.01 Long term (current) use of anticoagulants; Z79.899 Other long term (current) drug therapy; Z85.42 Personal history of malignant neoplasm of other parts of uterus; R47.1 Dysarthria and anarthria; R94.31 Abnormal electrocardiogram [ECG] [EKG]
CPT/HCPCS: 36415; 70450; 70551; 71020; 80053; 81003; 81015; 82533; 83605; 83735; 83880; 83930; 83935; 84145; 84300; 84443; 84484; 85025; 85610; 86140; 93005; 93306; 94640; 94660; 94760; 96365; 96372; 96375; 99284; A9270-GY; C8929; G0378; J1644; J1940; J2930; J3475

== ENCOUNTER 2017-12-01 08:30 | Emergency (ER) | payer OTHER, MEDICARE ==
[2017-12-01 09:18] LABS: Urine Appearance Turbid; Urine Blood Negative (Negative); Urine Color Amber; Urine Ketones Negative (Negative); Urine Protein 1+(30 mg/dL) (Negative); Urine Specific Gravity 1.025 (1.010-1.030); Urine Urobilinogen Negative (Negative)
--- NOTE | 2017-12-01 09:43 | RAD ---
Indication: Weakness and tremors. CT of the brain was performed without IV contrast. Ventricular structures are midline. No midline shift is noted. The extraction spaces are unremarkable. There is no evidence of renal mass or hemorrhage. No other high or low density lesions are identified. Mastoid air cells and paranasal sinuses are unremarkable. When compared to previous exam of 07-05 no significant change is noted. IMPRESSION: No intracranial mass or hemorrhage is noted.
[2017-12-01 10:07] LABS: ABS Basophils 0.1 10^3/ul (0-0.2); ABS Eosinophils 0.6 10^3/ul (0-0.6); ABS Lymphocytes 2.1 10^3/ul (1.0-4.8); ABS Monocytes 0.5 10^3/ul (0-0.8); ABS Neutrophils 7.8 10^3/ul (1.5-7.7); ABS Nucleated RBC 0 10^3/ul; Eosinophil % 5.1 % (0-6); Hematocrit 32 % (35-47); Hemoglobin 11.2 g/dl (12.0-16.0); Lymphocyte % 18.9 % (25-47); Mean Corpuscular HGB Conc 35 g/dl (31-36); Mean Corpuscular Hemoglobin 33 pg (27-31); Mean Corpuscular Volume 95 fL (80-97); Mean Platelet Volume 8 um3 (7.4-10.4); Nucleated Red Blood Cells % 0; Platelet Count 270 10^3/ul (150-450); Red Cell Distribution Width 14 % (10.5-15)
[2017-12-01 10:24] LABS: EGFR Non-African American 37.2 (>60)
[2017-12-01 10:37] LABS: INR 0.85 (0.77-1.02)
[2017-12-01 17:43] VITALS: BP 149/82
--- NOTE | 2017-12-01 21:01 | CONS ---
CC: Dr. Prince* NEUROLOGY CONSULTATION: DATE OF CONSULT: 12/01/17 REFERRING PHYSICIAN: Dr. Martinez. CHIEF COMPLAINT: Shaking, inability to walk. HISTORY OF PRESENT ILLNESS: Carrie Cevallos is a 52-year-old right-handed woman, who presented to the emergency room today with shaking and difficulty walking. She is a somewhat inconsistent historian, but states that she has had problems with shaking, which started this morning. However, she was evaluated in [facility] Emergency Room for about the greater part of a day last week for shaking and inability to walk. She said she developed speech problems after she arrived here in the emergency room or perhaps in the ambulance on the way in. She then said that she had speech problems when she was evaluated at [facility] too, but then it went away. She said that she does not have any problems walking before last week, but then she says she has been using a walker for a year and a half. When asked why she has difficulty walking requiring a walker, she says that she does not know. She says that she has numbness in her hands and feet and has had it for years because of neuropathy. She says she is not diabetic, has prediabetes, but was started on metformin and Victoza recently. Looking at hospital records, her blood sugars are consistently elevated. She denies any head injuries or headaches. No fevers or chills. She initially told me there were no changes in her medications, but then told me about the Victoza and metformin being started. So far, she has had a CAT scan of the brain, which is unremarkable and some routine labs notable for hyperglycemia and renal insufficiency, which looking at prior value seems chronic and stable. PAST MEDICAL HISTORY: Notable for atrial fibrillation, for which she was put on Xarelto after a hospitalization in [place]. She has had a knee replacement , partial toe amputation, lumbar laminectomy, and additionally has history of obstructive sleep apnea, hypertension, congestive heart failure. Prior admission notes indicate diagnoses of uterine cancer, chronic myelogenous leukemia, and Crohn's disease, although I have no verification of those diagnoses in the records. There is one note from [facility] Emergency Room where she was in February of 2017 for back and leg pain. 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 MEDICATIONS: At home, include: 1. Xarelto. 2. Metformin. 3. . 4. Trileptal 450 mg p.o. b.i.d. 5. Cymbalta 30 mg p.o. q. day. 6. Losartan. 7. Gabapentin 900 mg p.o. q.h.s. 8. Metoprolol 50 mg p.o. q. day. 9. Levothyroxine 300 mcg p.o. q. day. 10. Lisinopril 10 mg p.o. q. day. 11. Hydrochlorothiazide 25 mg p.o. q. day. 12. Furosemide 20 mg p.o. q. day. 13. B12 injections. SOCIAL HISTORY: She lives with her . She does not smoke and does not drink alcohol. Her ended up with respiratory infection when she had it , but otherwise is healthy. REVIEW OF SYSTEMS: Negative for headaches currently, new neck or back pain, fevers, recent infections other than an upper respiratory infection earlier in the month. She has had several falls in last week, but no injuries. No history of head trauma or epilepsy. No history of stroke. She denies being under any increased stress recently. PHYSICAL EXAM: She is morbidly obese. Temperature 98.7, blood pressure 92/61, heart rate in the 70s, respiratory rate is 14, and oxygen saturation is 99% on room air. Heart tones are distant, but I do not hear any murmurs and heart seems to be in regular rhythm. Lungs are clear anterolaterally. Carotid pulses are poorly felt, but I do not hear any bruits. Oral mucosa is moist and atraumatic. Head is atraumatic. I do not see any bruises on her limbs. Neurological Exam: Pupils react equally from 3 to 2 mm. Eye movements are normal. Funduscopic exam reveals sharp discs bilaterally. There is no ptosis. Visual allen are full to confrontation. Facial musculature is intact and symmetric. Facial sensation to light touch is symmetric. Palate raises symmetrically and tongue protrudes in the midline. Hearing is intact. Her speech is halting and intermittently dysarthric. At other times, she speaks perfectly clearly. Language is slurred. Motor exam reveals normal muscle tone in the limbs. She has break-away weakness diffusely in the upper extremities. She is able to raise the right leg up and hold it off the bed for over 7 seconds. When asked to raise the left leg, she says "I can't." Sensory exam is notable for absent light touch in the lower extremities. There is absent vibration sense to the ankles. Proprioception is absent in the pelvis and normal in the ankles. Reflexes are grade 2 symmetrically in upper extremities and knees and grade 1 at the ankles. Plantar responses are flexor bilaterally. She has irregular coarse jerky tremulous-like movements that do not have a consistent frequency and come and go. When formally tested, the irregular jerky tremulous movements are present and when she is distracted, they go away. Mental status finds her to be alert and oriented. She is a poor historian with inconsistent history given. She looks somewhat anxious. Affect is flat. DIAGNOSTIC STUDIES/LAB DATA: Includes a CT of the brain, which I reviewed and which looks normal. Other laboratory data includes a CBC with a white blood cell count of 11.0, this is similar to other white blood cell counts going back to 2015. Hemoglobin is a little low at 11.2, this is also unchanged over the last 3 years. Platelet count 270,000. Chemistry profile notable for sodium of 131, which is also historically the same for at least many months; her glucose is 146 today, it has consistently been elevated for all of her blood tests in the last 3 years. Her A1c on 01/13/15 was 6.8%, but I do not have a more recent one. Liver enzymes are normal. Creatinine is 1.47, which is consistent with historical values for last couple of years. Urinalysis reveals 1+ protein, 2+ leukocyte esterase, 2+ white blood cells. IMPRESSION AND PLAN: Her exam is functional. She has numerous medical problems and so numerous medical risks, but her examination today looks completely psychogenic. She may have a neuropathy, but her reflexes are retained and her motor exam is inconsistent and non-anatomical. She may have a urinary tract infection that might warrant treatment. Could check an ammonia level, although her liver enzymes are normal. Her TSH is normal and her electrolytes are all stable, so I do not see any other metabolic parameters to check. I would also recommend consideration of mental health consultation particularly if she does not resolve. I have discussed my impression with Dr. Martinez. [id number]/[facility] #: [id number] DACIA
--- NOTE | 2017-12-02 08:39 | ED ---
Iván Lopez Angela, scribed for Yomi Martinez MD on 12/01/17 at 0839 . Neurological HPI - HPI Summary HPI Summary: This pt is a 52 y/o female presenting to [facility] via EMS c/o slurred speech and weakness to bilateral lower extremities today. EMS reports they noticed slurred speech, right sided facial droop and weakness to bilateral lower extremities at 06:15 today. Pt states she was hospitalized at [facility] 1 week ago for tremors, weakness and recent falls. She notes her tremors became worse since yesterday morning on upper extremities. Pt describes shaking. Pt has hx of neuropathy. - History of Current Complaint Stated Complaint: POSSIBLE STROKE Hx Obtained From: Patient, EMS Hx Last Menstrual Period: 3 weeks ago Onset/Duration: Started hours ago, Still Present Current Severity: Moderate Neurological Deficit Location: Facial, RUE, LUE, RLE, LLE Character: Weak, Other: - tremors Aggravating: Nothing Alleviating: Nothing Associated Signs and Symptoms: Positive: Weakness - Additional Pertinent History Primary Care Physician: BLANK - Allergy/Home Medications Allergies/Adverse Reactions: Allergies Allergy/AdvReac Type Severity Reaction Status Date / Time morphine Allergy Hives Verified 12/01/17 08:41 Sulfa (Sulfonamide Allergy Hives Verified 12/01/17 08:41 Antibiotics) Home Medications: Home Medications Calcium/Magnesium [Calcium with Magnesium Tab] 1 tab PO DAILY 12/01/17 [History Confirmed 12/01/17] Cephalexin CAP* [Keflex CAP*] 500 mg PO BID 12/01/17 [History Confirmed 12/01/17 ] Cholecalciferol TAB* [Vitamin D TAB*] 1,500 unit PO DAILY 12/01/17 [History Confirmed 12/01/17] DULoxetine DR CAP* [Cymbalta CAP*] 30 - 90 mg PO DAILY 12/01/17 [History Confirmed 12/01/17] Gabapentin CAP(*) [Neurontin 300 CAP(*)] 900 mg PO BEDTIME 12/01/17 [History Confirmed 12/01/17] Losartan TAB* [Cozaar TAB*] 25 mg PO DAILY 12/01/17 [History Confirmed 12/01/17] Norethindrone-E.estradiol-Iron [Fermín Fe 1.5/30] 1 tab PO DAILY 12/01/17 [ History Confirmed 12/01/17] OXcarbazepine TAB(*) [Trileptal 300 mg TAB(*)] 450 mg PO BID 12/01/17 [History Confirmed 12/01/17] PMH/Surg Hx/FS Hx/Imm Hx Endocrine/Hematology History: Reports: Hx Diabetes - type 2, Hx Thyroid Disease - hypo Cardiovascular History: Reports: Hx Congestive Heart Failure, Hx Hypertension - on meds Denies: Hx Pacemaker/ICD, Other Cardiovascular Problems/Disorders Respiratory History: Reports: Hx Pneumonia Denies: Hx Asthma, Hx Chronic Obstructive Pulmonary Disease (COPD), Other Respiratory Problems/Disorders GI History: Reports: Hx Crohn's Disease Denies: Other GI Disorders History: Denies: Hx Renal Disease Musculoskeletal History: Reports: Hx Arthritis - hands, toes, hips, Hx Rheumatoid Arthritis - Has had Remicaide 06/2014 Sensory History: Reports: Hx Contacts or Glasses - Reading Denies: Hx Hearing Aid, Hx Hearing Problem Opthamlomology History: Reports: Hx Contacts or Glasses - Reading Neurological History: Reports: Hx Migraine - only a few, Hx Nerve Disease - neuopathy feet and hands up to knees Denies: Other Neuro Impairments/Disorders Psychiatric History: Denies: Hx Panic Disorder - Surgical History Surgery Procedure, Year, and Place: right knee replacement. tonsilectomy. galbladder removed. appendix. left 3rd toe amputation. 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 GENERAL: Patient is a well-developed and nourished female who is lying comfortable in the stretcher. Patient is not in any acute respiratory distress. HEAD AND FACE: No signs of trauma. No ecchymosis, hematomas or skull depressions. No sinus tenderness. EYES: PERRLA, EOMI x 2, No injected conjunctiva, no nystagmus. No photophobia. EARS: Hearing grossly intact. Ear canals and tympanic membranes are within normal limits. MOUTH: Oropharynx within normal limits. NECK: Supple, trachea is midline, no adenopathy, no JVD, no carotid bruit, no c- spine tenderness, neck with full ROM. No meningeal signs, no Kernig's or brudzinskis signs. CHEST: Symmetric, no tenderness at palpation LUNGS: Clear to auscultation bilaterally. No wheezing or crackles. CVS: Regular rate and rhythm, S1 and S2 present, no murmurs or gallops appreciated. ABDOMEN: Soft, non-tender. No signs of distention. No rebound no guarding, and no masses palpated. Bowel sounds are normal. EXTREMITIES: FROM in all major joints, no edema, no cyanosis or clubbing. NEURO: Alert and oriented x 3. Some ataxia. Slight slurred speech. SKIN: Dry and warm GCS: 15 Triage Information Reviewed: Yes Vital Signs On Initial Exam: Initial Vitals Temp Pulse Resp BP Pulse Ox 98.7 F 74 18 92/61 100 12/01/17 08:36 12/01/17 08:36 12/01/17 08:36 12/01/17 08:36 12/01/17 08:36 Vital Signs Reviewed: Yes Diagnostics - Vital Signs Vital Signs Temp Pulse Resp BP Pulse Ox 12/01/17 17:43 98.7 F 71 14 149/82 96 12/01/17 17:30 14 149/82 12/01/17 17:00 69 14 131/75 96 12/01/17 16:30 71 13 111/59 96 12/01/17 16:00 78 16 133/52 98 12/01/17 15:30 77 17 128/78 99 12/01/17 15:13 13 105/48 12/01/17 14:00 71 13 95 12/01/17 13:00 14 12/01/17 12:00 13 12/01/17 11:54 107/61 12/01/17 11:00 69 13 99 12/01/17 10:00 67 14 99 12/01/17 08:59 98 12/01/17 08:43 74 13 98 12/01/17 08:36 98.7 F 74 18 92/61 100 - Laboratory Lab Results: Lab Results 12/01/17 12/01/17 12/01/17 Range/Units 08:59 09:56 09:56 WBC 11.0 H (3.5-10.8) 10^3/ul RBC 3.40 L (4.0-5.4) 10^6/ul Hgb 11.2 L (12.0-16.0) g/dl Hct 32 L (35-47) % MCV 95 (80-97) fL MCH 33 H (27-31) pg MCHC 35 (31-36) g/dl RDW 14 (10.5-15) % Plt Count 270 (150-450) 10^3/ul MPV 8 (7.4-10.4) um3 Neut % (Auto) 71.0 (38-83) % Lymph % (Auto) 18.9 L (25-47) % [place] % (Auto) 4.3 (0-7) % Eos % (Auto) 5.1 (0-6) % Baso % (Auto) 0.7 (0-2) % Absolute Neuts (auto) 7.8 H (1.5-7.7) 10^3/ul Absolute Lymphs (auto) 2.1 (1.0-4.8) 10^3/ul Absolute Monos (auto) 0.5 (0-0.8) 10^3/ul Absolute Eos (auto) 0.6 (0-0.6) 10^3/ul Absolute Basos (auto) 0.1 (0-0.2) 10^3/ul Absolute Nucleated RBC 0 10^3/ul Nucleated RBC % 0 INR (Anticoag Therapy) (0.77-1.02) Sodium 131 L (133-145) mmol/L Potassium 4.7 (3.5-5.0) mmol/L Chloride 96 L (101-111) mmol/L Carbon Dioxide 28 (22-32) mmol/L Anion Gap 7 (2-11) mmol/L BUN 31 H (6-24) mg/dL Creatinine 1.47 H (0.51-0.95) mg/dL Est GFR ( Amer) 47.8 (>60) Est GFR (Non-Af Amer) 37.2 (>60) BUN/Creatinine Ratio 21.1 H (8-20) Glucose 146 H (70-100) mg/dL Lactic Acid (0.5-2.0) mmol/L Calcium 9.3 (8.6-10.3) mg/dL Total Bilirubin 0.30 (0.2-1.0) mg/dL AST 12 L (13-39) U/L ALT 12 (7-52) U/L Alkaline Phosphatase 54 (34-104) U/L Troponin I 0.00 (<0.04) ng/mL Total Protein 7.1 (6.4-8.9) g/dL Albumin 4.0 (3.2-5.2) g/dL Globulin 3.1 (2-4) g/dL Albumin/Globulin Ratio 1.3 (1-3) Triglycerides 159 mg/dL Cholesterol 201 mg/dL LDL Cholesterol 121 mg/dL HDL Cholesterol 48.4 mg/dL TSH 2.67 (0.34-5.60) mcIU/mL Urine Color Alisson Urine Appearance Turbid Urine pH 5.0 (5-9) Ur Specific Arcade 1.025 (1.010-1.030) Urine Protein 1+(30 mg/dl) A (Negative) Urine Ketones Negative (Negative) Urine Blood Negative (Negative) Urine Nitrate Negative (Negative) Urine Bilirubin Negative (Negative) Urine Urobilinogen Negative (Negative) Ur Leukocyte Esterase 2+ A (Negative) Urine WBC (Auto) 2+(11-20/hpf) A (Absent) Urine RBC (Auto) 3+(>10/hpf) A (Absent) Ur Squamous Epith Cells Present A (Absent) Urine Bacteria 3+ A (Absent) Urine Glucose Negative (Negative) Serum Alcohol < 10 (<10) mg/dL 12/01/17 12/01/17 Range/Units 09:56 09:56 WBC (3.5-10.8) 10^3/ul RBC (4.0-5.4) 10^6/ul Hgb (12.0-16.0) g/dl Hct (35-47) % MCV (80-97) fL MCH (27-31) pg MCHC (31-36) g/dl RDW (10.5-15) % Plt Count (150-450) 10^3/ul MPV (7.4-10.4) um3 Neut % (Auto) (38-83) % Lymph % (Auto) (25-47) % [place] % (Auto) (0-7) % Eos % (Auto) (0-6) % Baso % (Auto) (0-2) % Absolute Neuts (auto) (1.5-7.7) 10^3/ul Absolute Lymphs (auto) (1.0-4.8) 10^3/ul Absolute Monos (auto) (0-0.8) 10^3/ul Absolute Eos (auto) (0-0.6) 10^3/ul Absolute Basos (auto) (0-0.2) 10^3/ul Absolute Nucleated RBC 10^3/ul Nucleated RBC % INR (Anticoag Therapy) 0.85 (0.77-1.02) Sodium (133-145) mmol/L Potassium (3.5-5.0) mmol/L Chloride (101-111) mmol/L Carbon Dioxide (22-32) mmol/L Anion Gap (2-11) mmol/L BUN (6-24) mg/dL Creatinine (0.51-0.95) mg/dL Est GFR ( Amer) (>60) Est GFR (Non-Af Amer) (>60) BUN/Creatinine Ratio (8-20) Glucose (70-100) mg/dL Lactic Acid 1.3 (0.5-2.0) mmol/L Calcium (8.6-10.3) mg/dL Total Bilirubin (0.2-1.0) mg/dL AST (13-39) U/L ALT (7-52) U/L Alkaline Phosphatase (34-104) U/L Troponin I (<0.04) ng/mL Total Protein (6.4-8.9) g/dL Albumin (3.2-5.2) g/dL Globulin (2-4) g/dL Albumin/Globulin Ratio (1-3) Triglycerides mg/dL Cholesterol mg/dL LDL Cholesterol mg/dL HDL Cholesterol mg/dL TSH (0.34-5.60) mcIU/mL Urine Color Urine Appearance Urine pH (5-9) Ur Specific [place] (1.010-1.030) Urine Protein (Negative) Urine Ketones (Negative) Urine Blood (Negative) Urine Nitrate (Negative) Urine Bilirubin (Negative) Urine Urobilinogen (Negative) Ur Leukocyte Esterase (Negative) Urine WBC (Auto) (Absent) Urine RBC (Auto) (Absent) Ur Squamous Epith Cells (Absent) Urine Bacteria (Absent) Urine Glucose (Negative) Serum Alcohol (<10) mg/dL Result Diagrams: 12/01/17 09:56 12/01/17 09:56 Lab Statement: Any lab studies that have been ordered have been reviewed, and results considered in the medical decision making process. - CT Brain CT CT Interpretation: No Acute Changes - IMPRESSION: No intracranial mass or hemorrhage is noted. Dr. Martinez has reviewed this radiology report. CT Interpretation Completed By: Radiologist - EKG 09:15 Cardiac Rate: NL EKG Rhythm: Sinus Rhythm - at 69 bpm EKG Interpretation: No ST elevations. NIH Scale - NIH Scale Level of Consciousness: Alert/Keenly Responsive Ask Patient the Month and His/Her Age: Both Correct Ask Pt to Open/Close Eyes and Oil And Gas Superintendent/Release Non-Paretic Hand: Both Correctly Best Gaze (Only Horizontal Eye Movement): Normal Visual Field Testing: No Visual Loss Facial Paresis-Pt to Smile & Close Eyes or Grimace Symmetry: Normal/Symmetrical Motor Function - Right Arm: No Drift-Holds 10 Seconds Motor Function - Left Arm: No Drift-Holds 10 Seconds Motor Function - Right Leg: No Drift-Holds 10 Seconds Motor Function - Left Leg: No Drift-Holds 10 Seconds Limb Ataxia-Must be out of Proportion to Weakness Present: Present in One Limb Sensory (Use Pinprick to Test Arms/Legs/Trunk/Face): Normal Best Language (Describe Picture, Name Items): No Aphasia Dysarthria (Read Several Words): Slurs Some Words Extinction and Inattention: No Abnormality Total Score: 2 Re-Evaluation - Re-Evaluation First Eval Re-Evaluation Time: 13:36 Comment: Dr. Navarrete, neurologist, in to evaluate the pt. Second Eval Re-Evaluation Time: 16:04 Comment: Mental health environmental protection forester in to evaluate the pt. Fourth Eval Re-Evaluation Time: 17:25 Comment: I discussed the plan to discharge with the pt and . They understand and agree. Course/Dx - Course Assessment/Plan: This pt is a 52 y/o female presenting to [facility] via EMS c/o slurred speech and weakness to bilateral lower extremities today. EMS reports they noticed slurred speech, right sided facial droop and weakness to bilateral lower extremities at 06:15 today. Pt states she was hospitalized at [facility] 1 week ago for tremors, weakness and recent falls. She notes her tremors became worse since yesterday morning on upper extremities. Pt describes shaking. Pt has hx of neuropathy. Test results without any significant abnormalities except for slight anemia, chronic renal insufficiency. Urinalysis is contaminated. Initially the pt reports she had right sided weakness and slurred speech. However my physical exam was no consistent with a stroke. Head CT: No intracranial mass or hemorrhage is noted. At this point I discussed the case with Dr. Navarrete, neurologist, who agrees the pt does not have signs or symptoms of stroke but more of a mental health dysfunction. He requested for the pt to have a mental health evaluation. Mental health environmental protection forester reported the pt is no suicidal or homicidal, therefore they cleared the pt from their services. At this point I discussed the case with Dr. Bradley, hospitalist, who also reports the pt does not have criteria for admission. Therefore he will consult for the pt but not admit. I discussed test results and findings with the pt and the pts , and they actually report and agree that they will go home and follow up with pts PCP. They also report they are waiting for approval for a wheelchair for better mobility in the house. She is also getting physical therapy in their house. I discussed all the findings and test results with the patient. Patient was instructed to return to the emergency room immediately if any of the symptoms return or worsens. Plan of care was discussed with the patient and understands and agrees. All questions were answered at patient satisfaction. There were no further complaints or concerns. Therefore the pt will be discharged to home with follow up from her PCP. Pt is hemodynamically stable, alert and oriented x3. - Diagnoses Provider Diagnoses: Morbid obesity, Diffuse weakness, Chronic renal failure - Physician Notifications Discussed Care Of Patient With: Gage Navarrete Time Discussed With Above Provider: 11:10 Instructed by Provider To: Other - I discussed the pt's case with Dr. Navarrete, neurologist, who reports he will call me back. [13:09] I spoke Dr. Navarrete, who states he will come see the pt in the ED. [14:02] I discussed with Dr. Bradley, hospitalist, who has agreed to admit the pt. - Critical Care Time Critical Care Time: 75-104 min Discharge - Discharge Plan Condition: Stable Disposition: ADMITTED TO [facility] Patient Education Materials: Weakness (ED) Referrals: Martin Prince DO [Primary Care Provider] - 3 Days Additional Instructions: Please follow up with your primary care provider. RETURN TO THE ED FOR ANY WORSENING SYMPTOMS. The documentation as recorded by the Iván tamayo Angela accurately reflects the service I personally performed and the decisions made by Juan david Walter, MD.
== END 2017-12-01 17:43 | disposition short-term general hospital (02) ==
LOC: ED 08:30
DX: R53.1 Weakness (principal); N18.9 Chronic kidney disease, unspecified; E66.01 Morbid (severe) obesity due to excess calories; E11.9 Type 2 diabetes mellitus without complications; E03.9 Hypothyroidism, unspecified; I50.9 Heart failure, unspecified; I10 Essential (primary) hypertension; K50.90 Crohn's disease, unspecified, without complications; M06.9 Rheumatoid arthritis, unspecified; Z88.2 Allergy status to sulfonamides; Z88.5 Allergy status to narcotic agent; I48.91 Unspecified atrial fibrillation; G47.33 Obstructive sleep apnea (adult) (pediatric); C55 Malignant neoplasm of uterus, part unspecified; C92.10 Chronic myeloid leukemia, BCR/ABL-positive, not having achieved remission; Z79.84 Long term (current) use of oral hypoglycemic drugs
CPT/HCPCS: 36415; 70450; 80053; 80061; 80183; 80320; 81003; 81015; 83605; 84443; 84484; 85025; 85610; 87086; 93005; 99283; G0480

== ENCOUNTER 2017-12-14 18:06 | Emergency (ER) | payer OTHER, MEDICARE ==
--- NOTE | 2017-12-14 19:43 | ED ---
Complex/Multi-Sys Presentation - HPI Summary HPI Summary: Patient is a 52-year-old female who presents to the ED with multiple complaints. She has been seen multiple times in the ED recently for a variety of issues. Today she arrives with a complaint of sedimentation rate and TSH values abnormal. She has been seen by Dr. Diaz in neurology with a CT scan which was negative as well as Dr. Stratton for rheumatology. She has not yet seen an plaster pattern caster. She endorses one episode of falling. at bedside. She denies any recent illness including flulike symptoms, nausea, vomiting, headache. However, she endorses diarrhea which is intermittent. Patient has a history of Crohn's and states this is normal for her. She denies any fevers, sweats, chills. She has been seen multiple times for every Tuesday of complaints and states no one is able to figure out where her symptoms are originating. Recently 6 weeks ago her PCP increased her dose of Levothyroxine to 300mcg. She is asymptomatic on arrival. Vital signs are within normal limits. - History Of Current Complaint Chief Complaint: EDGeneral Time Seen by Provider: 12/14/17 18:59 Hx Obtained From: Patient Onset/Duration: Gradual Onset Timing: Constant Severity Currently: Mild Severity Initially: Mild - Allergies/Home Medications Allergies/Adverse Reactions: Allergies Allergy/AdvReac Type Severity Reaction Status Date / Time morphine Allergy Hives Verified 12/01/17 08:41 Sulfa (Sulfonamide Allergy Hives Verified 12/01/17 08:41 Antibiotics) PMH/Surg Hx/FS Hx/Imm Hx Previously Healthy: No Endocrine/Hematology History: Reports: Hx Diabetes - type 2, Hx Thyroid Disease - hypo Cardiovascular History: Reports: Hx Congestive Heart Failure, Hx Hypertension - on meds Denies: Hx Pacemaker/ICD, Other Cardiovascular Problems/Disorders Respiratory History: Reports: Hx Pneumonia Denies: Hx Asthma, Hx Chronic Obstructive Pulmonary Disease (COPD), Other Respiratory Problems/Disorders GI History: Reports: Hx Crohn's Disease Denies: Other GI Disorders History: Denies: Hx Renal Disease Musculoskeletal History: Reports: Hx Arthritis - hands, toes, hips, Hx Rheumatoid Arthritis - Has had Remicaide 06/2014 Sensory History: Reports: Hx Contacts or Glasses - Reading Denies: Hx Hearing Aid, Hx Hearing Problem Opthamlomology History: Reports: Hx Contacts or Glasses - Reading Neurological History: Reports: Hx Migraine - only a few, 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 tonsilectomy. galbladder removed. appendix. left 3rd toe amputation. lumbar disectomy Hx Anesthesia Reactions: No - Immunization History Hx Pertussis Vaccination: No Immunizations Up to Date: Unable to Obtain/Confirm Infectious Disease History: No Infectious Disease History: Reports: Hx of Known/Suspected MRSA - throughout body- [facility] Denies: Traveled Outside the [place] in Last 30 Days - Family History Known Family History: Positive: Cardiac Disease, Hypertension, Diabetes - Social History Occupation: Unemployed Lives: With Family Alcohol Use: None Alcohol Amount: holidays Hx Substance Use: No Substance Use Type: Reports: None, Prescribed Hx Tobacco Use: No Smoking Status (MU): Never Smoked Tobacco Review of Systems Constitutional: Negative Negative: Fever, Chills, Fatigue, Skin Diaphoresis Eyes: Negative Cardiovascular: Negative Respiratory: Negative Genitourinary: Negative Positive: no symptoms reported, see HPI Musculoskeletal: Negative Neurological: Negative All Other Systems Reviewed And Are Negative: Yes Physical Exam Triage Information Reviewed: Yes Vital Signs On Initial Exam: Initial Vitals Temp Pulse Resp BP Pulse Ox 97.1 F 74 20 154/81 100 12/14/17 18:09 12/14/17 18:09 12/14/17 18:09 12/14/17 18:09 12/14/17 18:09 Vital Signs Reviewed: Yes Appearance: Positive: Well-Appearing, Well-Nourished Skin: Positive: Warm, Skin Color Reflects Adequate Perfusion Head/Face: Positive: Normal Head/Face Inspection Eyes: Positive: EOMI, BRAXTON Neck: Positive: Supple, No Lymphadenopathy Respiratory/Lung Sounds: Positive: Clear to Auscultation, Breath Sounds Present Cardiovascular: Positive: RRR, Pulses are Symmetrical in both Upper and Lower Extremities Musculoskeletal: Positive: Normal, Strength/ROM Intact Neurological: Positive: Speech Normal Psychiatric: Positive: Normal, Affect/Mood Appropriate AVPU Assessment: Alert Diagnostics - Vital Signs Vital Signs Temp Pulse Resp BP Pulse Ox 12/14/17 18:09 97.1 F 74 20 154/81 100 - Laboratory Result Diagrams: 12/14/17 19:54 12/14/17 19:54 Lab Statement: Any lab studies that have been ordered have been reviewed, and results considered in the medical decision making process. Complex Multi-Symp Course/Dx Course Of Treatment: I discussed with patient that I would be able to repeat lab work and assess for any abnormalities. However, she is being seen by the appropriate physicians within our network such as neurology and rheumatology as well as her PCP. EKG obtained which shows no acute findings. Upon obtained and is 0.00. However, her TSH and T4 are abnormal. TSH is 32.65 and T4 5 0.29. ESR is elevated at 68. I have discussed these findings with the patient and have advised she seek out an plaster pattern caster, Dr. sanchez to further manipulate her levothyroxine dosages. Patient agrees to this and will also follow back up with Dr. Diaz and Dr. Stratton. - Diagnoses Provider Diagnoses: Increased thyroid stimulating hormone (TSH) level Discharge - Sign-Out/Discharge Documenting (check all that apply): Discharge - Discharge Plan Condition: Stable Disposition: HOME Patient Education Materials: Hypothyroidism (ED) Referrals: Leroy Sanchez MD [Medical Doctor] - Martin Prince DO [Primary Care Provider] - Additional Instructions: Please follow-up with Dr. sanchez Continue to see your current providers I believe your levothyroxine needs to be managed over time and should be done by a specialist If he develop any worsening or changing symptoms, return to the ED immediately - Billing Disposition and Condition Condition: STABLE Disposition: HOME
[2017-12-14 20:17] LABS: INR 0.9 (0.77-1.02)
[2017-12-14 20:18] LABS: ABS Basophils 0 10^3/ul (0-0.2); ABS Eosinophils 0.5 10^3/ul (0-0.6); ABS Lymphocytes 2.4 10^3/ul (1.0-4.8); ABS Monocytes 0.4 10^3/ul (0-0.8); ABS Neutrophils 8.4 10^3/ul (1.5-7.7); ABS Nucleated RBC 0 10^3/ul; Eosinophil % 4.2 % (0-6); Hematocrit 30 % (35-47); Hemoglobin 9.8 g/dl (12.0-16.0); Lymphocyte % 20.6 % (25-47); Mean Corpuscular HGB Conc 33 g/dl (31-36); Mean Corpuscular Hemoglobin 31 pg (27-31); Mean Corpuscular Volume 94 fL (80-97); Mean Platelet Volume 7.8 um3 (7.4-10.4); Nucleated Red Blood Cells % 0; Platelet Count 310 10^3/ul (150-450); Red Blood Count 3.17 10^6/ul (4.0-5.4); Red Cell Distribution Width 14 % (10.5-15); White Blood Count 11.8 10^3/ul (3.5-10.8)
[2017-12-14 20:38] LABS: EGFR Non-African American 54.2 (>60)
[2017-12-14 23:40] VITALS: BP 0/0
== END 2017-12-14 22:10 | disposition home or self-care (01) ==
LOC: ED 18:06
DX: R94.6 Abnormal results of thyroid function studies (principal); E11.9 Type 2 diabetes mellitus without complications; E03.9 Hypothyroidism, unspecified; R94.31 Abnormal electrocardiogram [ECG] [EKG]; I25.2 Old myocardial infarction
CPT/HCPCS: 36415; 80053; 83605; 84436; 84443; 84484; 85025; 85610; 85652; 86140; 93005; 99281

== ENCOUNTER 2018-01-09 19:49 | Inpatient (IN) | payer OTHER, MEDICARE ==
[2018-01-09] MEDS ORDERED: NS 0.9% 1000 ML* 1,000 ML IV ONE (20:00)
[2018-01-09 20:46] LABS: EGFR Non-African American 54.8 (>60)
--- NOTE | 2018-01-10 01:23 | ED ---
Preston Lopez Rebecca, scribed for Javier Ferguson MD on 01/09/18 at 2000 . Complex/Multi-Sys Presentation - HPI Summary HPI Summary: Pt is a 52 y/o F who presents to ED, referred from her primary care for low sodium in blood work. Pt was seen by her shock absorber installer for the first time, Dr. Devine, this morning where her blood was drawn. Denies any other symptoms including weakness, lightheadedness, palpitations, abd pain, fever. PMHx Crohn' s and hypothyroid. - History Of Current Complaint Chief Complaint: EDGeneral Time Seen by Provider: 01/09/18 19:56 Hx Obtained From: Patient Onset/Duration: Still Present Severity Currently: None Location: Negative Associated Signs And Symptoms: Positive: Other - Low sodium - Allergies/Home Medications Allergies/Adverse Reactions: Allergies Allergy/AdvReac Type Severity Reaction Status Date / Time morphine Allergy Hives Verified 01/09/18 19:55 Sulfa (Sulfonamide Allergy Hives Verified 01/09/18 19:55 Antibiotics) PMH/Surg Hx/FS Hx/Imm Hx Endocrine/Hematology History: Reports: Hx Diabetes - type 2, Hx Thyroid Disease - hypo Cardiovascular History: Reports: Hx Congestive Heart Failure, Hx Hypertension - on meds Denies: Hx Pacemaker/ICD, Other Cardiovascular Problems/Disorders Respiratory History: Reports: Hx Pneumonia Denies: Hx Asthma, Hx Chronic Obstructive Pulmonary Disease (COPD), Other Respiratory Problems/Disorders GI History: Reports: Hx Crohn's Disease Denies: Other GI Disorders History: Denies: Hx Renal Disease Musculoskeletal History: Reports: Hx Arthritis - hands, toes, hips, Hx Rheumatoid Arthritis - Has had Remicaide 06/2014 Sensory History: Reports: Hx Contacts or Glasses - Reading Denies: Hx Hearing Aid, Hx Hearing Problem Opthamlomology History: Reports: Hx Contacts or Glasses - Reading Neurological History: Reports: Hx Migraine - only a few, 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 tonsilectomy. galbladder removed. appendix. left 3rd toe amputation. lumbar disectomy Hx Anesthesia Reactions: No Infectious Disease History: No Infectious Disease History: Reports: Hx of Known/Suspected MRSA - throughout body- [facility] Denies: Traveled Outside the [place] in Last 30 Days - Family History Known Family History: Positive: Cardiac Disease, Hypertension, Diabetes - Social History Alcohol Use: None Alcohol Amount: holidays Hx Substance Use: No Substance Use Type: Reports: None, Prescribed Hx Tobacco Use: No Smoking Status (MU): Never Smoked Tobacco Review of Systems Positive: Other - Low sodium on bloodwork this a.m.. Negative: Fever Negative: Palpitations Negative: Abdominal Pain Neurological: Other - NEGATIVE: Lightheadedness Negative: Weakness All Other Systems Reviewed And Are Negative: Yes Physical Exam - Summary Physical Exam Summary: Appearance: Well appearing, no pain distress, obese, appears older than stated age Skin: warm, dry, reflects adequate perfusion Head/face: normal Eyes: EOMI, BRAXTON ENT: normal Neck: supple, non-tender Respiratory: CTA, breath sounds present Cardiovascular: RRR, pulses symmetrical Abdomen: non-tender, soft Bowel Sounds: present Musculoskeletal: normal, strength/ROM intact Neuro: normal, sensory motor intact, A&Ox3 Triage Information Reviewed: Yes Vital Signs On Initial Exam: Initial Vitals Temp Pulse Resp BP Pulse Ox 98.1 F 86 16 141/81 98 01/09/18 19:52 01/09/18 19:52 01/09/18 19:52 01/09/18 19:52 01/09/18 19:52 Vital Signs Reviewed: Yes Diagnostics - Vital Signs Vital Signs Temp Pulse Resp BP Pulse Ox 01/09/18 19:52 98.1 F 86 16 141/81 98 - Laboratory Lab Results: Lab Results 01/09/18 Range/Units 20:10 Sodium 125 L (139-145) mmol/L Potassium 4.4 (3.5-5.0) mmol/L Chloride 87 L (101-111) mmol/L Carbon Dioxide 27 (22-32) mmol/L Anion Gap 11 (2-11) mmol/L BUN 16 (6-24) mg/dL Creatinine 1.05 H (0.51-0.95) mg/dL Est GFR ( Amer) 70.5 (>60) Est GFR (Non-Af Amer) 54.8 (>60) BUN/Creatinine Ratio 15.2 (8-20) Glucose 175 H (70-100) mg/dL Calcium 9.0 (8.6-10.3) mg/dL TSH 7.98 H (0.34-5.60) mcIU/mL Free T4 0.85 (0.61-1.12) ng/dL Result Diagrams: 01/09/18 20:10 Lab Statement: Any lab studies that have been ordered have been reviewed, and results considered in the medical decision making process. - EKG 1957 Cardiac Rate: NL - [address] Segment: Non-Specific EKG Interpretation: 1st degree AV block, borderline long QT, normal axis Complex Multi-Symp Course/Dx Course Of Treatment: Pt stable without complaint. Outpt labs today showed Na 124. Repeated here at 125. Pt also remains hypothyroid. She is asymptomatic and appears euvolumic. Admit for further. - Diagnoses Differential Diagnoses/HQI/PQRI: Other - adrenal insuff., medication induced. Provider Diagnoses: Hyponatremia, Hypothyroidism - Physician Notifications Discussed Care Of Patient With: Mingo Browning Time Discussed With Above Provider: 20:24 Instructed by Provider To: Other - Accepts pt for admission Discharge - Sign-Out/Discharge Documenting (check all that apply): Discharge/Admit/Transfer - Admit - Discharge Plan Condition: Stable Disposition: ADMITTED TO [facility] Referrals: Martin Prince DO [Primary Care Provider] - - Billing Disposition and Condition Condition: STABLE [place] [place] The documentation as recorded by the Preston tamayo Rebecca accurately reflects the service I personally performed and the decisions made by , Javier Ferguson MD.
--- NOTE | 2018-01-10 07:01 | HP ---
H&P (Free Text) History and Physical: PCP: An Prince MD Endocrinology: Javi Devine MD Oncology: Jhon Sargent MD Date/Time: 01/10/2018 4637 CC: none HPI: Mrs Cevallos is a 52YO female HX AFIB, HTN, diastolic HF, Crohn's, CML, uterine CA, SHANI, RLE DVT who was seen for the first time by endocrinology yesterday wherein labwork revealed a sodium of 122 for which he called her PCP who called her and advised her to take her immediately to the ED. She denies any symptomotology, specifically no light-headedness, mental fogginess, N /V, headache, fatigue, malaise, chest pain, SOB, or other issues. PMedHx AFIB HTN diastolic HF Crohn's CML uterine CA SHANI HX RLE DVT Ambulatory Orders Nursing to reconcile. Gabapentin CAP(*) [Neurontin 300 CAP(*)] 600 mg PO TID 01/11/17 Pravastatin (NF) [Pravachol (NF)] 20 mg PO QAM 04/27/17 Cyanocobalamin INJ * [Vitamin B12 INJ *] 1,000 mcg IM MONTHLY 04/29/17 Hydrochlorothiazide TAB* [Hydrodiuril TAB*] 25 mg PO QAM 04/29/17 Lactobacillus Acidophilus [Probiotic] 1 cap PO DAILY 04/29/17 Levothyroxine TAB* [Synthroid 100 MCG TAB*] 300 mcg PO QAM 04/29/17 Metoprolol Succinate XL TAB* [Toprol XL TAB*] 50 mg PO DAILY 04/29/17 Broadus-3 Fatty Acids (Nf) [Fish Oil (NF)] 1,000 mg PO DAILY 04/29/17 Lisinopril TAB* [Prinivil TAB 10 MG*] 10 mg PO DAILY #30 tab 04/30/17 Furosemide TAB* [Lasix TAB*] 20 mg PO DAILY #30 tab 06/21/17 Calcium/Magnesium [Calcium with Magnesium Tab] 1 tab PO DAILY 12/01/17 Cholecalciferol TAB* [Vitamin D TAB*] 1,500 unit PO DAILY 12/01/[address] CAP* [Cymbalta CAP*] 30 - 90 mg PO DAILY 12/01/17 Gabapentin CAP(*) [Neurontin 300 CAP(*)] 900 mg PO BEDTIME 12/01/17 Losartan TAB* [Cozaar TAB*] 25 mg PO DAILY 12/01/17 Norethindrone-E.estradiol-Iron [Fermín Fe 1.5/30] 1 tab PO DAILY 12/01/17 OXcarbazepine TAB(*) [Trileptal 300 mg TAB(*)] 450 mg PO BID 12/01/17 Allergies morphine Allergy (Verified 01/09/18 19:55) Hives Sulfa (Sulfonamide Antibiotics) Allergy (Verified 01/09/18 19:55) Hives SocHx: no tobacco, rare alcohol, no recreational drugs; lives with ; full code status FamHx: reviewed & non-contributory ROS: as above, otherwise reviewed and all were negative vitals: Vital Signs Temp 36.9 C 01/10/18 06:12 Pulse 79 01/10/18 06:12 Resp 22 01/10/18 06:12 BP 132/76 01/10/18 06:12 Pulse Ox 100 01/10/18 06:12 Intake & Output 01/09/18 01/09/18 01/10/18 11:59 23:59 11:59 Intake Total 1000 Balance 1000 Weight 122.016 kg 173.091 kg Intake: IV Fluids 1000 Constitutional: NAD, normally developed, super morbidly obese white female HEENM: atraumatic; sclera/conjunctiva: anicteric/clear; hearing: clinically intact; oropharynx: clear, mucosa moist Neck: soft tissue: non-tender; thyroid: non-tender Pulmonary: clear to auscultation bilaterally, good aeration, no accessory muscle use CV: RR/RR, normal S1S2, no carotid bruit, no jugular venous distention, 2+ B DP/ PT, no edema Abdominal: soft, non-distended, non-tender, no rebound/guarding/rigidity, normoactive bowel sounds, no hepatosplenomegaly or masses, no costovertebral angle tenderness Musculoskeletal: general: grossly intact, non-tender to palpation Integumental: normal appearance and texture of exposed skin Psychiatric orientation: AA&O to PPS affect: calm mood: cooperative eye contact: good content: reliable responses: timely insight: good Testing: Lab Results 01/09/18 Range/Units 20:10 Sodium 125 L (139-145) mmol/L Potassium 4.4 (3.5-5.0) mmol/L Chloride 87 L (101-111) mmol/L Carbon Dioxide 27 (22-32) mmol/L Anion Gap 11 (2-11) mmol/L BUN 16 (6-24) mg/dL Creatinine 1.05 H (0.51-0.95) mg/dL Est GFR ( Amer) 70.5 (>60) Est GFR (Non-Af Amer) 54.8 (>60) BUN/Creatinine Ratio 15.2 (8-20) Glucose 175 H (70-100) mg/dL Calcium 9.0 (8.6-10.3) mg/dL TSH 7.98 H (0.34-5.60) mcIU/mL Free T4 0.85 (0.61-1.12) ng/dL ECG, personally reviewed: sinus 1st degree AV block, poor R-wave progression, no ischemia Impression: 52F with extensive HX outlined above presents with asymptomatic hypoNatremia DIAGNOSIS & PLAN Primary asymptomatic hypoNatremia : IVFs : trend hypothyroidism : continue levothyroxine 300mg daily : f/u outpatient w/ endocrinology Secondary AFIB : review meds once reconciled HTN : review meds once reconciled diastolic HF : review meds once reconciled Crohn's : review meds once reconciled CML : continue outpatient surveillance HX uterine CA : s/p hysterectomy in her 20s HX RLE DVT : SCDs & heparin SQ Admission Rational: observation for asymptomatic hyponatremia DVTp: SCDs & heparin SQ Code Status: full HCP:
[2018-01-10] MEDS ORDERED: Ondansetron INJ* 2 MG/ML VIAL IV PRN (07:36)
[2018-01-10] MEDS ORDERED: NS 0.9% 1000 ML* 1,000 ML IV SCH (07:45)
[2018-01-10 08:39] LABS: EGFR Non-African American 60.1 (>60)
[2018-01-10] MEDS: DULoxetine DR CAP* 30 MG CAP.DR PO SCH (08:50)
[2018-01-10] MEDS: Metoprolol Succinate XL TAB* 50 MG PO SCH (08:50)
[2018-01-10] MEDS: Losartan TAB* 25 MG PO SCH (08:50)
[2018-01-10] MEDS: Lisinopril TAB* 10 MG PO SCH (08:50)
[2018-01-10] MEDS: OXcarbazepine TAB(*) 300 MG PO SCH ×2 (08:50→20:10)
[2018-01-10] MEDS: CMC: Pravastatin (NF) 20 MG TAB PO SCH (09:00)
[2018-01-10] MEDS: Gabapentin CAP(*) 300 MG PO SCH ×4 (09:00→20:09)
[2018-01-10] MEDS: Levothyroxine TAB* 100 MCG TAB PO SCH (09:00)
[2018-01-10] MEDS ORDERED: Furosemide TAB* 20 MG PO SCH (09:00)
[2018-01-10 15:20] LABS: EGFR Non-African American 60.1 (>60)
[2018-01-10] MEDS ORDERED: Furosemide IV* 10 MG/ML VIAL (40 MG) ONE (17:03)
[2018-01-10] MEDS: Furosemide IV* 10 MG/ML VIAL (40 MG) IV SLOW PU SCH (17:16)
[2018-01-10 18:55] LABS: Urine Appearance Clear; Urine Blood Negative (Negative); Urine Color Straw; Urine Ketones Negative (Negative); Urine Protein Negative (Negative); Urine Specific Gravity 1.006 (1.010-1.030); Urine Urobilinogen Negative (Negative)
[2018-01-10] MEDS: Acetaminophen TAB* 325 MG PO PRN (20:09)
--- NOTE | 2018-01-10 20:48 | PN ---
Hospitalist Progress Note Date of Service: 01/10/18 I saw and examined Ms. Cevallos today. The etiology of her hyponatremia is challenging--her volume examination is very difficult, but I think she may be hypervolemic. Also confounding this is her history of copious po fluid intake, poor nutritional intake, hypothyroidism, and hyperpigmentation. She did not improve on normal saline, so I am going to stop the saline and start iv lasix and put her on a po fluid restriction and hold the hctz. I explained that we may not find a definitive answer for her during this admission, but she is agreeable to staying the night and following up more outpatinet.
[2018-01-10] MEDS: traMADol TAB* 50 MG PO PRN (21:41)
[2018-01-11] MEDS: traMADol TAB* 50 MG PO PRN ×3 (05:27→19:36)
[2018-01-11] MEDS: Levothyroxine TAB* 100 MCG TAB PO SCH (05:27)
[2018-01-11 09:21] LABS: EGFR Non-African American 59.4 (>60)
[2018-01-11] MEDS: Losartan TAB* 25 MG PO SCH (09:59)
[2018-01-11] MEDS: DULoxetine DR CAP* 30 MG CAP.DR PO SCH (09:59)
[2018-01-11] MEDS: Metoprolol Succinate XL TAB* 50 MG PO SCH (09:59)
[2018-01-11] MEDS: OXcarbazepine TAB(*) 300 MG PO SCH ×2 (09:59→20:02)
[2018-01-11] MEDS: Lisinopril TAB* 10 MG PO SCH (10:00)
[2018-01-11] MEDS: CMC: Pravastatin (NF) 20 MG TAB PO SCH (10:01)
[2018-01-11] MEDS: Furosemide IV* 10 MG/ML VIAL (40 MG) IV SLOW PU SCH (10:01)
[2018-01-11] MEDS: Gabapentin CAP(*) 300 MG PO SCH ×4 (10:07→20:04)
[2018-01-11 12:32] LABS: EGFR Non-African American 57.3 (>60)
[2018-01-11] MEDS ORDERED: DULoxetine DR CAP* 20 MG CAP.DR PO SCH (15:46)
--- NOTE | 2018-01-11 16:51 | PN ---
Subjective Date of Service: 01/11/18 Interval History: Complains of achiness from the bed, otherwise feels okay. Her is at the bedside, says she seems about herself today, no confusion or disorientation. Objective Active Medications: Acetaminophen (Tylenol Tab*) 650 mg PO Q6H PRN PRN Reason: FEVER/PAIN Last Admin: 01/10/18 20:09 Dose: 650 mg Duloxetine HCl (Cymbalta Cap*) 20 mg PO DAILY [facility] [place] Gabapentin (Neurontin Cap(*)) 600 mg PO TID@0900,1300,1700 [facility] [place] Last Admin: 01/11/18 16:34 Dose: 600 mg Gabapentin (Neurontin Cap(*)) 900 mg PO BEDTIME [facility] [place] Last Admin: 01/10/18 20:09 Dose: 900 mg Levothyroxine Sodium (Synthroid Tab*) 300 mcg PO QAM@0600 [facility] [place] Last Admin: 01/11/18 05:27 Dose: 300 mcg Lisinopril (Prinivil Tab*) 10 mg PO DAILY [facility] [place] Last Admin: 01/11/18 10:00 Dose: 10 mg Losartan Potassium (Cozaar Tab*) 25 mg PO DAILY [facility] [place] Last Admin: 01/11/18 09:59 Dose: 25 mg Metoprolol Succinate (Toprol Xl Tab*) 50 mg PO DAILY [facility] [place] Last Admin: 01/11/18 09:59 Dose: 50 mg Ondansetron HCl (Zofran Inj*) 4 mg IV Q6H PRN PRN Reason: NAUSEA Oxcarbazepine (Trileptal Tab(*)) 450 mg PO BID [facility] [place] Last Admin: 01/11/18 09:59 Dose: 450 mg Pravastatin Sodium (Pravachol (Nf)) 20 mg PO QAM [facility] [place] PRN Reason: Protocol Last Admin: 01/11/18 10:01 Dose: 20 mg Tramadol HCl (Ultram*) 50 mg PO Q6H PRN PRN Reason: PAIN Last Admin: 01/11/18 13:56 Dose: 50 mg Vital Signs - 8 hr 01/11/18 01/11/18 01/11/18 10:07 11:32 12:10 Temperature 98.4 F Pulse Rate 65 Respiratory 18 16 16 Rate Blood Pressure 151/74 (mmHg) O2 Sat by Pulse 97 Oximetry 01/11/18 01/11/18 01/11/18 13:30 13:34 13:56 Temperature 98 F 98.0 F Pulse Rate 73 73 Respiratory 14 14 Rate Blood Pressure 150/71 150/71 (mmHg) O2 Sat by Pulse 99 99 Oximetry 01/11/18 01/11/18 01/11/18 13:58 15:51 16:32 Temperature 98.1 F Pulse Rate 71 Respiratory 14 20 14 Rate Blood Pressure 134/57 (mmHg) O2 Sat by Pulse 98 Oximetry 01/11/18 01/11/18 16:34 16:35 Temperature Pulse Rate Respiratory 14 14 Rate Blood Pressure (mmHg) O2 Sat by Pulse Oximetry Oxygen Devices in Use Now: None Appearance: alert, no distress, nontoxic. some hyperpigmentation is noted on her cheeks and chin. Eyes: No Scleral Icterus Ears/Nose/Mouth/Throat: NL Teeth, Lips, Gums Neck: NL Appearance and Movements; NL JVP, Trachea Midline, No Thyroid Enlargement, Masses Respiratory: Symmetrical Chest Expansion and Respiratory Effort, Clear to Auscultation Cardiovascular: NL Sounds; No Murmurs; No JVD, RRR Abdominal: NL Sounds; No Tenderness; No Distention Lymphatic: No Cervical Adenopathy Extremities: No Edema Skin: No Rash or Ulcers Neurological: Alert and Oriented x 3 Result Diagrams: 01/11/18 11:59 Additional Lab and Data: Lab Results 01/09/18 Range/Units 20:10 Sodium 125 L (139-145) mmol/L Potassium 4.4 (3.5-5.0) mmol/L Chloride 87 L (101-111) mmol/L Carbon Dioxide 27 (22-32) mmol/L Anion Gap 11 (2-11) mmol/L BUN 16 (6-24) mg/dL Creatinine 1.05 H (0.51-0.95) mg/dL Est GFR ( Amer) 70.5 (>60) Est GFR (Non-Af Amer) 54.8 (>60) BUN/Creatinine Ratio 15.2 (8-20) Glucose 175 H (70-100) mg/dL Calcium 9.0 (8.6-10.3) mg/dL TSH 7.98 H (0.34-5.60) mcIU/mL Free T4 0.85 (0.61-1.12) ng/dL Assess/Plan/Problems-Billing Assessment: 52 yo female with history of hypothyroidism, morbid obesity, CML (in remission) , uterine cancer (treated remotely), and chemo-related neuropathy admitted from her pcp office where she was found to be hyponatremic. - Patient Problems (1) Hyponatremia Current Visit: Yes Status: Acute Code(s): E87.1 - HYPO-OSMOLALITY AND HYPONATREMIA SNOMED Code(s): 43281514 Comment: Her volume exam is very difficult due to her bmi of 65, but I believe this is euvolemic hyponatremia. Her sodium is unchanged with a trial of Normal Saline, and also unchanged after two doses of IV lasix and a fluid restriction. She has many possible etiologies of hyponatremia; at this point I think SIADH is most likely from a medication side effect-- hctz has been discontinued, I am titrating down her duloxetine. she is on oxcarbazapine as well. I have discussed the case with Dr. Keith, who recommends a 24 hour urine creatinine and sodium and he will see Ms. Cevallos in the morning. Will check urine and serum osmolality after she has been off lasix x 24 hours. (2) Morbid obesity Current Visit: No Status: Acute Code(s): E66.01 - MORBID (SEVERE) OBESITY DUE TO EXCESS CALORIES SNOMED Code(s): 558278625 Comment: BMI 65 (3) Neuropathy Current Visit: No Status: Acute Code(s): G62.9 - POLYNEUROPATHY, UNSPECIFIED SNOMED Code(s): 747068705 Comment: I discussed her pain regimen; she thinks the gabapentin has helped her the most; not the duloxetine and oxcarbazapine. will titrate down the duloxetine. (4) Crohn disease Current Visit: Yes Status: Acute Code(s): K50.90 - CROHN'S DISEASE, UNSPECIFIED, WITHOUT COMPLICATIONS SNOMED Code(s): 78577816 Comment: no evidence of flare, not on any maintenance meds (5) Diabetes Current Visit: Yes Status: Acute Code(s): E11.9 - TYPE 2 DIABETES MELLITUS WITHOUT COMPLICATIONS SNOMED Code(s): 52276684 Comment: recent a1c is 6.9%; she has not been started on any meds for this need to discuss this with her Status and Disposition: inpatient for nephro consult
[2018-01-11] MEDS: Acetaminophen TAB* 325 MG PO PRN (23:09)
[2018-01-12] MEDS: traMADol TAB* 50 MG PO PRN (01:36)
[2018-01-12] MEDS: Levothyroxine TAB* 100 MCG TAB PO SCH (06:13)
[2018-01-12 06:51] LABS: EGFR Non-African American 59.4 (>60)
[2018-01-12] MEDS: Metoprolol Succinate XL TAB* 50 MG PO SCH (08:19)
[2018-01-12] MEDS: CMC: Pravastatin (NF) 20 MG TAB PO SCH (08:19)
[2018-01-12] MEDS: OXcarbazepine TAB(*) 300 MG PO SCH (08:19)
[2018-01-12] MEDS: Losartan TAB* 25 MG PO SCH (08:19)
[2018-01-12] MEDS: Acetaminophen TAB* 325 MG PO PRN (08:25)
[2018-01-12] MEDS: Gabapentin CAP(*) 300 MG PO SCH ×2 (08:28→14:02)
[2018-01-12 13:09] VITALS: BP 129/74
--- NOTE | 2018-01-12 22:29 | DS ---
CC: Martin Prince DO; Dr. Keith* DISCHARGE SUMMARY: DATE OF ADMISSION: 01/10/18 DATE OF DISCHARGE: 01/12/18 PRINCIPAL DISCHARGE DIAGNOSIS: Hyponatremia. SECONDARY DISCHARGE DIAGNOSES: 1. Crohn's disease. 2. Morbid obesity. 3. Chemo associated neuropathy. 4. Hypothyroidism. DISCHARGE MEDICATIONS: 1. Gabapentin 600 t.i.d. 2. Pravastatin 200 mg in the morning. 3. B12 1000 mcg monthly. 4. Metoprolol 50 mg daily. 5. Fish oil 1000 mg daily. 6. Probiotic 1 cap daily. 7. Levothyroxine 300 mcg in the morning. 8. Lisinopril 10 mg daily. 9. Lasix 20 mg daily. 10. Oxcarbazepine 450 mg b.i.d. 11. Duloxetine 20 mg daily for 5 more days and then duloxetine 20 mg every other day for 5 more doses and then discontinue. 12. Losartan 25 mg daily. 13. Calcium and magnesium 1 tab daily. 14. Vitamin D 1500 units daily. 15. Fermín 1 tab daily. 16. Gabapentin 900 mg at bedtime. PHYSICAL EXAM: Physical exam at the time of discharge: Temperature 98.3, heart rate 85, respiratory rate 18, pulse ox 97% on room air, blood pressure 129 /74. General: Alert, well appearing female, in no distress. HEENT: Pupils equal, round, and reactive to light. Moist mucosa. No pharyngeal exudates or erythema. Hyperpigmentation is noted on her neck and cheeks. Neck: No cervical lymphadenopathy. No thyromegaly. Chest: Regular rate and rhythm. I cannot find her jugular vein, PMI is nondisplaced. Lungs are clear bilaterally. Abdomen: Soft, nontender, nondistended. Extremities: No pitting edema. Healed arthroplasty. Scars are noted. HOSPITAL COURSE BY PROBLEMS: 1. Asymptomatic hyponatremia. There was some question of whether she had been slightly symptomatic as her reported mild confusion prior to admission. She was sent to the emergency department from her PCP when hyponatremia was incidentally noted. The etiology of her hyponatremia remains unclear. Her volume status is extremely challenging given her BMI of 65; however, I believe that she is fairly euvolemic. At admission, she was started on normal saline. However, after a trial of normal saline, her sodium remained exactly the same, so I discontinued the normal saline and started her on a fluid restriction with IV Lasix and after a trial of that, her sodium remained exactly the same. I discussed her case with Dr. Leroy Devine, who said it is possible that her hypothyroidism is contributing to her hyponatremia, but other causes should be pursued. She is certainly on several medications that could contribute to inappropriate ADH secretion including gabapentin, duloxetine, Trileptal and HCTZ. HCTZ was held on admission and she had no issues with blood pressure without it. I have started to reduce her dose of duloxetine from 30 mg to 20 mg and explained the reasoning of this with her. She wished to continue on the gabapentin and the oxcarbazepine for now. I discussed this case with Dr. Keith and requested a consultation; however, he was unable to see her prior to her discharge, but agrees to see her as an outpatient and Ms. Cevallos agrees to follow up with him. She has started a 24-hour urine collection for him and will continue this at home and bring it back to the labs. At the time of discharge, her sodium is 127. 2. Hypertension. HCTZ was discontinued on this admission. Please note that HCTZ was inadvertently included on our discharge summary; however, I have called the patient and instructed her not to take it. 3. Chemo-induced neuropathy. Her medications were adjusted as above. She is continued on gabapentin and oxcarbazepine. 4. Hypothyroidism. She was instructed to follow up with Dr. Devine as an outpatient. DISPOSITION: Ms. Cevallos was discharged with her with followup with Dr. Keith, Dr. Devine and Dr. Prince. [id number]/[facility] #: [id number] [facility]
== END 2018-01-12 14:15 | disposition home or self-care (01) | DRG 644 ==
LOC: ED 19:49 → UNDOADMOB 01-10 03:47 → MEDTELE 01-10 03:47 → OBSVTOIN 01-10 16:40 → INTOOBSV 01-10 16:40 → MEDTELE 01-10 16:40 → MED 01-10 21:30 → MEDTELE 01-10 21:30 → UNDODISIN 01-12 14:15
PROVIDERS: ADMIT Hospitalist; ATTEND Internal Medicine
PROC: 5A09357 Assistance with Respiratory Ventilation, Less than 24 Consecutive Hours, Continuous Positive Airway Pressure (ICD-10-PCS; principal; 2018-01-10)
DX: E22.2 Syndrome of inappropriate secretion of antidiuretic hormone (principal); K50.90 Crohn's disease, unspecified, without complications; I50.32 Chronic diastolic (congestive) heart failure; C92.11 Chronic myeloid leukemia, BCR/ABL-positive, in remission; E66.01 Morbid (severe) obesity due to excess calories; E03.9 Hypothyroidism, unspecified; E11.40 Type 2 diabetes mellitus with diabetic neuropathy, unspecified; I11.0 Hypertensive heart disease with heart failure; M19.042 Primary osteoarthritis, left hand; M19.041 Primary osteoarthritis, right hand; I48.91 Unspecified atrial fibrillation; L81.9 Disorder of pigmentation, unspecified; G62.9 Polyneuropathy, unspecified; T45.1X5A Adverse effect of antineoplastic and immunosuppressive drugs, initial encounter; T42.6X5A Adverse effect of other antiepileptic and sedative-hypnotic drugs, initial encounter; T43.215A Adverse effect of selective serotonin and norepinephrine reuptake inhibitors, initial encounter; T42.1X5A Adverse effect of iminostilbenes, initial encounter; T50.2X5A Adverse effect of carbonic-anhydrase inhibitors, benzothiadiazides and other diuretics, initial encounter; M19.079 Primary osteoarthritis, unspecified ankle and foot; M16.0 Bilateral primary osteoarthritis of hip; M06.9 Rheumatoid arthritis, unspecified; G43.909 Migraine, unspecified, not intractable, without status migrainosus; G47.33 Obstructive sleep apnea (adult) (pediatric); Z96.651 Presence of right artificial knee joint; Z90.49 Acquired absence of other specified parts of digestive tract; Z89.422 Acquired absence of other left toe(s); Z86.14 Personal history of Methicillin resistant Staphylococcus aureus infection; Z82.49 Family history of ischemic heart disease and other diseases of the circulatory system; Z87.898 Personal history of other specified conditions; Z90.710 Acquired absence of both cervix and uterus; Z83.3 Family history of diabetes mellitus; Z85.42 Personal history of malignant neoplasm of other parts of uterus; Z88.5 Allergy status to narcotic agent; Z88.2 Allergy status to sulfonamides; Z68.44 Body mass index [BMI] 60.0-69.9, adult
CPT/HCPCS: 36415; 80048; 80053; 81003; 82533; 83516; 83930; 84439; 84443; 85025; 86140; 93005; 94660; 99284; A9270-GY; J1940; J2405

== ENCOUNTER 2018-05-02 08:43 | Inpatient (IN) | payer OTHER, MEDICARE ==
--- OUTSIDE RECORDS SUMMARY | 2018-05-02 08:55 | XMS REPORT ---
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 Active Onset: 10/14/2015 Unsteady gait Lisseth Samuels M.D. Active Onset: 10/14/2015 Restless legs Lisseth Samuels M.D. Active Onset: 10/14/2015 Periodic leg movements of sleep Lisseth Samuels M.D. Active Onset: 12/13/2017 Myalgia Kamran Diaz M.D. Active Onset: 12/13/2017 Inflammatory polyarthropathy Kamran Diaz M.D. Active Onset: 12/13/2017 Polyneuropathy Kamran Diaz M.D. Active Onset: 04/15/2017 Morbid obesity Elizabeth Irvin M.D. Active Onset: 04/15/2017 Localized, primary osteoarthritis Elizabeth Irvin M.D. Active Onset: 12/20/2016 Skin sensation disturbance Gage Sinha M.D. Active Onset: 12/20/2016 Low back pain Gage Sihna M.D. Active Onset: 12/20/2016 Neck pain Gage Sinha M.D. Active Family History Date Family Member(s) Problem(s) Comments General Cancer General Heart Disease General Rheumatoid Arthritis General Crohn's Disease Social History Type Date Description Comments Marital Status Lives With Occupation Disabled ETOH Use Denies alcohol use Smoking Patient has never smoked Recreational Drug Use Denies Drug Use Exercise Type/Frequency Exercises sporadically Allergies, Adverse Reactions, Alerts Date Description Reaction Status Severity Comments 04/21/2015 Sulfa active 04/21/2015 Morphine active 04/21/2015 Ragweed active Medications Medication Date Status Form Strength Qnty SIG Indications Ordering Provider Duloxetine HCL 12/[address] 60mg 30cap take 1 by Kamran Part s valarie Diaz M.D. every day Gabapentin 04/21 Active Tablets 600mg 135ta 1 tabs Marta Beltrán, bs three MD times a day, 1 1/2 at night.. Levothyroxine Active Tablets 300mcg 1 by Unknown Sodium /0000 mouth every day Multivitamins Active Capsules 1 by Unknown /0000 mouth every day Calcium/Mag-D Active 1000mg daily Unknown /0000 Leon-3 Fish Oil Active Capsules 1000mg once a Unknown /0000 day Probiotic Active 25Billion 1 po qday Unknown /0000 Metoprolol Active Tablets 50mg 1 by Unknown Succinate ER /0000 ER 24HR mouth every day Omeprazole Active Capsules 40mg 1 by Unknown /0000 DR mouth every day Losartan Active Tablets 25mg 1 by Unknown Potassium /0000 mouth every day Magnesium Oxide Active Tablets 400mg 2 in the Unknown /0000 morning, 3 at night Furosemide Active Tablets 20mg 1 by Unknown /0000 mouth every day Vitamin D3 Active Tablets 1000Unit 1 by Unknown /0000 mouth every day Diphenoxylate-Atr Active Tablets 2.5-0.025 2-8 pills Unknown opine /0000 mg daily as needed for diarrhea Tramadol HCL Active Tablets 50mg 1 tablet Unknown /0000 by mouth every 6 to 8 hours as needed Oxcarbazepine 12/11 Hx Tablets 150mg 3 tabs po G62.9 Lisseth bid Stackman, - M.DLeslie 12/13 Oxcarbazepine 08/29 Hx Tablets 300mg 270ta 3 tabs po G62.9 bs bid Georgia Samuels.DLeslie 12/13 Oxcarbazepine 04/18 Hx Tablets 150mg 180ta 1-3 tabs G62.9 bs by mouth Abril, - twice a M.D. 08/29 day directed Cymbalta 10/[address] 60mg 60cap 1 po bid Part s Abril - M.DLeslie 02/17 Valium 10/04 Hx Tablets 5mg 2tabs 1 to 2 tablets Abril, - by mouth M.DLeslie 03/20 prior to mri Cymbalta 12/[address] 30mg 120ca 3-4 tabs G60.9 Part ps by mouth Abril, - every day M.D. 10/06 directed. Ropinirole HCL 10/14 Hx Tablets 0.25mg 90tab 2 tablets Lisseth s by mouth Abril, - 2 hrs M.D. 10/12 symptoms isually occur. Vitamin D High 10/14 Hx Capsules [id number] 60cap 1 by Lisseth Macedo s mouth Abril, - weekly M.D. 12/06 Magox 400 04/21 Hx Tablets 400(241.3 100ta 3 tabs Qutaybeh S. /2014 mg) mg bs daily Georgia Roldan M.DLeslie 10/13 Oxycodone HCL Hx Capsules 5mg 1-2 tabs Unknown /0000 by mouth - every 4-6 02/21 hours needed pain Microgestin Fe 00 Hx Tablets 1.5-30mg- take as Unknown 1.530 /0000 mcg directed - 10/13 Diphenoxylate-Atr Hx Tablets 2.5-0.025 1-2 tabs Unknown opine /0000 mg up to 4 - times a 03/20 day needed Colestipol HCL 00 Hx Tablets 1gm 4 tablets Unknown /0000 bid - 03/20 Duloxetine HCL Hx Caps DR 60mg 1 by Unknown /0000 Part mouth bid - 10/13 Amitriptyline HCL 00 Hx Tablets 100mg 1 by Unknown /0000 mouth - every at 03/20 Meloxicam Hx Tablets 15mg once Unknown /0000 daily - with food 10/13 Gabapentin Hx Tablets 600mg 120ta 1 tabs Lisseth M. /0000 bs three to Abril, - four M.D. 04/21 times day Hydrochlorothiazi Hx Tablets 25mg 1 by Unknown de /0000 mouth - every day 02/21 Metoprolol Hx Tablets 50mg 1 by Unknown Succinate ER /0000 ER 24HR mouth - every day 03/20 Cyanocobalamin Hx Solution 1000mcg/M 1 ml Unknown /0000 L every - month 03/20 Pravastatin Hx Tablets 20mg 1 tablet Unknown Sodium /0000 by mouth - once 10/13 daily bedtime Levothyroxine Hx Tablets 25mcg 1 by Unknown Sodium /0000 mouth - every day 12/06 Humira Hx PSKT 40mg/0.8M inject 40 Unknown /0000 L mg - subcutane 11/09 ous every other week Cimzia Starter Hx Kit 6X 200 200 mg sc Unknown Kit /0000 mg/ML e, 2 - Injection 03/20 s 2016 On Hold Invokana Hx Tablets 100mg 1 by Unknown /0000 mouth - every day 03/20 breakfast Meloxicam Hx Tablets 15mg 1 by Unknown /0000 mouth - every day 03/20 Oxycodone-Acetami Hx Tablets 5-325mg 1 tab by Unknown nophen /0000 mouth - every 12 02/17 Pravastatin Hx Tablets 20mg 1 tablet Unknown Sodium /0000 by mouth - once 07/03 daily bedtime Control 00/ Hx Unknown Pill /0000 - 04/17 Lactobacillus 0000 Hx Tablets Unknown /0000 - 04/15 Omeprazole Hx Capsules 40mg 1 by Unknown /0000 DR mouth - every day 04/17 Aspirin Hx Tablets 81mg 1 by Unknown /0000 DR mouth - every day 03/20 Xarelto Hx Tablets 20mg 1 by Unknown /0000 mouth - every day 03/20 Furosemide Hx Tablets 40mg 1 by Unknown /0000 mouth - every day 03/20 Potassium Hx Tablets 20Meq 1 by Unknown Chloride ER /0000 ER mouth - every day 03/20 Azathioprine Hx Tablets 50mg 1 by Unknown /0000 mouth bid - 03/20 Hydrochlorothiazi Hx Tablets 25mg 1 by Unknown de /0000 mouth - every day 01/18 Calcium Hx Unknown 600/Vitamin D /0000 - 04/17 Fish Oil Hx Unknown /0000 - 07/[address] HCL Hx Caps [address] 30mg 90cap take 3 Marta Bonno, /0000 Part s capsules MD - by mouth 12/13 Medications Administered in Office Medication Date Status Form Strength Qnty SIG Indications Ordering Provider Depomedrol Administered Injection Elizabeth 40MG 017 Lewis Irvin Inj, Administered Injection Philipbishnu Vega Regadenoson, 015 Kem, 0.1 MG Lewis, FACEdwin, FASNC Technetium TC Administered Injection Philipbishnu Vega 99M 015 Kem TetrofosminLewis, FACEdwin, Per Unit Dose FASNC Up To 40 Millicuries Vital Signs Date Vital Result Comment 04/07/2018 Height 64 inches 5'4" Weight 365.00 lb Heart Rate 92 /min BP Systolic Sitting 148 mmHg BP Diastolic Sitting 92 mmHg Respiratory Rate 16 /min BMI (Body Mass Index) 62.6 kg/m2 01/19/2018 Height 64 inches 5'4" Weight 359.00 lb Heart Rate 86 /min BP Systolic Sitting 138 mmHg BP Diastolic Sitting 72 mmHg Respiratory Rate 15 /min BMI (Body Mass Index) 61.6 kg/m2 12/13/2017 Height 64 inches 5'4" Weight 357.00 lb Heart Rate 94 /min BP Systolic Sitting 150 mmHg BP Diastolic Sitting 90 mmHg Respiratory Rate 18 /min BMI (Body Mass Index) 61.3 kg/m2 12/07/2017 Height 64 inches 5'4" Weight 369.12 lb Heart Rate 76 /min BP Systolic Sitting 106 mmHg BP Diastolic Sitting 58 mmHg Respiratory Rate 16 /min Body Temperature 98.5 F Pain Level 8 BMI (Body Mass Index) 63.4 kg/m2 08/29/2017 Height 64 inches 5'4" Weight 369.25 lb Heart Rate 100 /min BP Systolic Sitting 120 mmHg BP Diastolic Sitting 82 mmHg Respiratory Rate 20 /min O2 % BldC Oximetry 94 % BMI (Body Mass Index) 63.4 kg/m2 07/04/2017 Height 64 inches 5'4" Weight 376.00 lb Heart Rate 87 /min BP Systolic 131 mmHg BP Diastolic 77 mmHg BMI (Body Mass Index) 64.5 kg/m2 04/18/2017 Height 64 inches 5'4" Weight 382.00 lb Heart Rate 92 /min BP Systolic 140 mmHg BP Diastolic 82 mmHg Respiratory Rate 16 /min O2 % BldC Oximetry 97 % ra BMI (Body Mass Index) 65.6 kg/m2 04/15/2017 Height 64 inches 5'4" Weight 387.00 lb Heart Rate 82 /min BP Systolic 145 mmHg BP Diastolic 101 mmHg Respiratory Rate 24 /min Pain Level 8 BMI (Body Mass Index) 66.4 kg/m2 02/22/2017 Height 64.50 inches 5'4.50" Weight 390.00 lb Heart Rate 72 /min BP Systolic Sitting 136 mmHg BP Diastolic Sitting 88 mmHg Respiratory Rate 20 /min Body Temperature 98.2 F BMI (Body Mass Index) 65.9 kg/m2 12/20/2016 Height 64.50 inches 5'4.50" Weight 389.00 lb Heart Rate 78 /min BP Systolic Sitting 142 mmHg lg BP Diastolic Sitting 86 mmHg lg Pain Level 9 BMI (Body Mass Index) 65.7 kg/m2 11/10/2016 Height 64.50 inches 5'4.50" Weight 389.25 lb Heart Rate 84 /min BP Systolic Sitting 116 mmHg BP Diastolic Sitting 90 mmHg Respiratory Rate 16 /min Pain Level 7 BMI (Body Mass Index) 65.8 kg/m2 10/13/2016 Height 64 inches 5'4" Weight 305.00 lb BP Systolic 124 mmHg BP Diastolic 76 mmHg BMI (Body Mass Index) 52.3 kg/m2 09/29/2016 Heart Rate 78 /min BP Systolic Sitting 138 mmHg BP Diastolic Sitting 92 mmHg Respiratory Rate 16 /min Pain Level 7 O2 % BldC Oximetry 96 % 06/11/2016 Height 64 inches 5'4" Weight 264.00 lb Heart Rate 67 /min BP Systolic 136 mmHg BP Diastolic 78 mmHg Respiratory Rate 18 /min BMI (Body Mass Index) 45.3 kg/m2 03/01/2016 Height 64 inches 5'4" Weight 305.00 lb Heart Rate 84 /min BP Systolic Sitting 124 mmHg BP Diastolic Sitting 70 mmHg Respiratory Rate 14 /min BMI (Body Mass Index) 52.3 kg/m2 12/09/2015 Height 64 inches 5'4" Weight 305.00 lb Heart Rate 80 /min BP Systolic Sitting 126 mmHg BP Diastolic Sitting 86 mmHg Respiratory Rate 14 /min BMI (Body Mass Index) 52.3 kg/m2 10/14/2015 Height 64 inches 5'4" Weight 305.00 lb Heart Rate 56 /min BP Systolic Sitting 110 mmHg BP Diastolic Sitting 76 mmHg Respiratory Rate 14 /min BMI (Body Mass Index) 52.3 kg/m2 Results Test Date Test Result H/L Range Note Laboratory test finding 12/12/2017 Hemoglobin A1c (Glyco 6.9 % High 4.0- 5.6 1 HGB) Connective Tissue Panel 12/12/2017 Anti-Nuclear Antibody 0.7 U 2 Cyclic Citrullinated Peptide <15.6 U 3 Interpretation See Comment 4 Anca AB Ser If 12/12/2017 C-Anca Negative Negative P-Anca Positive Negative 5 Laboratory test finding 12/12/2017 Erythrocyte Sed Rate 75 mm/Hr High 0- 30 C Reactive Protein 47.49 mg/L High < 5.00 6 Immunoglobulins Serum Quant 12/12/2017 Immunoglobulin G 875 mg/dL 767 - 1590 7 Immunoglobulin M 20 mg/dL 37 - 286 Immunoglobulin A 69 mg/dL 61 - 356 Quantiferon Gold TB 12/12/2017 QuantiFERON-Tb Gold Plus Negative Negative 8 TB1 Ag minus Nil Result 0 IU/mL TB2 Ag minus Nil Result 0 IU/mL TB Mitogen minus Nil Result 8.95 IU/mL TB Nil Result 0.02 IU/mL 9 Laboratory test finding 12/12/2017 Rheumatoid Factor <10 IU/mL 0-14 10 Creatine Kinase(CK) 25 U/L 10-223 TSH (Thyroid Stim Horm) 27.43 mcIU/mL High 0.34-5.60 Vitamin B12 And Folate Serum 12/12/2017 Vitamin B12 315 pg/mL 180-914 11 Folic Acid (Folate) > 20.00 ng/mL >3.99 Laboratory test finding 12/12/2017 Vitamin D, 1,25 35 pg/mL 18-78 12 Dihydroxy CBC Auto Diff 12/12/2017 White Blood Count 12.2 10^3/uL High 3.5-10.8 Red Blood Count 3.38 10^6/uL Low 4.0-5.4 Hemoglobin 10.6 g/dL Low 12.0-16.0 Hematocrit 32 % Low 35-47 Mean Corpuscular Volume 95 fL 80-97 Mean Corpuscular Hemoglobin 31 pg 27-31 Mean Corpuscular HGB Conc 33 g/dL 31-36 Red Cell Distribution Width 14 % 10.5-15 Platelet Count 347 10^3/uL 150-450 Mean Platelet Volume 8.5 um3 7.4-10.4 Abs Neutrophils 8.9 10^3/uL High 1.5-7.7 Abs Lymphocytes 2.3 10^3/uL 1.0-4.8 Abs Monocytes 0.3 10^3/uL 0-0.8 Abs Eosinophils 0.6 10^3/uL 0-0.6 Abs Basophils 0.1 10^3/uL 0-0.2 Abs Nucleated RBC 0 10^3/uL Granulocyte % 73.0 % 38-83 Lymphocyte % 19.2 % Low 25-47 Monocyte % 2.7 % 0-7 Eosinophil % 4.6 % 0-6 Basophil % 0.5 % 0-2 Nucleated Red Blood Cells % 0 Comp Metabolic Panel 12/12/2017 Sodium 132 mmol/L Low 133-145 Potassium 4.7 mmol/L 3.5-5.0 Chloride 93 mmol/L Low 101-111 Co2 Carbon Dioxide 27 mmol/L 22-32 Anion Gap 12 mmol/L High 2-11 Glucose 157 mg/dL High 70-100 Blood Urea Nitrogen 22 mg/dL 6-24 Creatinine 1.10 mg/dL High 0.51-0.95 BUN/Creatinine Ratio 20.0 8-20 Calcium 9.2 mg/dL 8.6-10.3 Total Protein 7.0 g/dL 6.4-8.9 Albumin 4.0 g/dL 3.2-5.2 Globulin 3.0 g/dL 2-4 Albumin/Globulin Ratio 1.3 1-3 Total Bilirubin 0.30 mg/dL 0.2-1.0 Alkaline Phosphatase 50 U/L 34-104 Alt 11 U/L 7-52 Ast 13 U/L 13-39 Egfr Non- 52.0 >60 Egfr 66.8 >60 13 CBC Auto Diff 08/30/2017 White Blood Count 10.6 10^3/uL 3.5-10.8 Red Blood Count 4.05 10^6/uL 4.0-5.4 Hemoglobin 12.0 g/dL 12.0-16.0 Hematocrit 36 % 35-47 Mean Corpuscular Volume 90 fL 80-97 Mean Corpuscular Hemoglobin 30 pg 27-31 Mean Corpuscular HGB Conc 33 g/dL 31-36 Red Cell Distribution Width 14 % 10.5-15 Platelet Count 322 10^3/uL 150-450 Mean Platelet Volume 9 um3 7.4-10.4 Abs Neutrophils 9.0 10^3/uL High 1.5-7.7 Abs Lymphocytes 1.1 10^3/uL 1.0-4.8 Abs Monocytes 0.2 10^3/uL 0-0.8 Abs Eosinophils 0.3 10^3/uL 0-0.6 Abs Basophils 0 10^3/uL 0-0.2 Abs Nucleated RBC 0.01 10^3/uL Granulocyte % 84.5 % High 38-83 Lymphocyte % 10.1 % Low 25-47 Monocyte % 2.1 % 1-9 Eosinophil % 2.9 % 0-6 Basophil % 0.4 % 0-2 Nucleated Red Blood Cells % 0 Comp Metabolic Panel 08/30/2017 Sodium 132 mmol/L Low 133-145 Potassium 4.2 mmol/L 3.5-5.0 Chloride 94 mmol/L Low 101-111 Co2 Carbon Dioxide 28 mmol/L 22-32 Anion Gap 10 mmol/L 2-11 Glucose 185 mg/dL High 70-100 Blood Urea Nitrogen 40 mg/dL High 6-24 Creatinine 1.50 mg/dL High 0.51-0.95 BUN/Creatinine Ratio 26.7 High 8-20 Calcium 8.9 mg/dL 8.6-10.3 Total Protein 6.4 g/dL 6.4-8.9 Albumin 3.7 g/dL 3.2-5.2 Globulin 2.7 g/dL 2-4 Albumin/Globulin Ratio 1.4 1-3 Total Bilirubin 0.40 mg/dL 0.2-1.0 Alkaline Phosphatase 51 U/L 34-104 Alt 15 U/L 7-52 Ast 17 U/L 13-39 Egfr Non- 36.3 >60 Egfr 46.7 >60 14 Urinalysis Profile 04/27/2017 Urine Color Yellow Urine Appearance Clear Urine Specific [place] 1.016 1.010-1.030 Urine pH 6.0 5-9 Urine Urobilinogen Negative Negative Urine Ketones Negative Negative Urine Protein 1+(30 mg/dL) Negative Urine Leukocytes Negative Negative Urine Blood 3+ Negative Urine Nitrite Negative Negative Urine Bilirubin Negative Negative Urine Glucose Negative Negative Urine White Blood Cell Absent Absent Urine Red Blood Cell 1+(3-5/hpf) Absent Urine Bacteria Absent Absent Urine Squamous Epithelial Cell Present Absent CBC No Diff 04/27/2017 White Blood Count 11.5 10^3/uL High 3.5-10.8 Red Blood Count 3.42 10^6/uL Low 4.0-5.4 Hemoglobin 10.4 g/dL Low 12.0-16.0 Hematocrit 32 % Low 35-47 Mean Corpuscular Volume 95 fL 80-97 Mean Corpuscular Hemoglobin 30 pg 27-31 Mean Corpuscular HGB Conc 32 g/dL 31-36 Red Cell Distribution Width 15 % 10.5-15 Platelet Count 288 10^3/uL 150-450 Mean Platelet Volume 9 um3 7.4-10.4 Inr/Protime 04/27/2017 Inr 1.51 High 0.89-1.11 Laboratory test finding 04/27/2017 Partial Thrombo Time 34.9 seconds 26.0 -36.3 PTT Comp Metabolic Panel 04/27/2017 Sodium 131 mmol/L Low 133-145 Potassium 4.6 mmol/L 3.5-5.0 Chloride 94 mmol/L Low 101-111 Co2 Carbon Dioxide 27 mmol/L 22-32 Anion Gap 10 mmol/L 2-11 Glucose 155 mg/dL High 70-100 Blood Urea Nitrogen 17 mg/dL 6-24 Creatinine 0.93 mg/dL 0.51-0.95 BUN/Creatinine Ratio 18.3 8-20 Calcium 8.7 mg/dL 8.6-10.3 Total Protein 6.7 g/dL 6.4-8.9 Albumin 3.8 g/dL 3.2-5.2 Globulin 2.9 g/dL 2-4 Albumin/Globulin Ratio 1.3 1-3 Total Bilirubin 0.50 mg/dL 0.2-1.0 Alkaline Phosphatase 54 U/L 34-104 Alt 15 U/L 7-52 Ast 20 U/L 13-39 Egfr Non- 63.1 >60 Egfr 81.1 >60 15 Type & Screen 04/27/2017 Patient Blood Type B Positive Antibody Screen NEGATIVE Urine Culture And 04/27/2017 Urine Culture SEE RESULT BELOW 16 Sensitivities Laboratory test finding 02/23/2017 C Reactive Protein 47.23 mg/L High < 5.00 17 CBC Auto Diff 02/23/2017 White Blood Count 13.5 10^3/uL High 3.5-10.8 Red Blood Count 3.95 10^6/uL Low 4.0-5.4 Hemoglobin 11.7 g/dL Low 12.0-16.0 Hematocrit 37 % 35-47 Mean Corpuscular Volume 93 fL 80-97 Mean Corpuscular Hemoglobin 30 pg 27-31 Mean Corpuscular HGB Conc 32 g/dL 31-36 Red Cell Distribution Width 14 % 10.5-15 Platelet Count 283 10^3/uL 150-450 Mean Platelet Volume 9 um3 7.4-10.4 Abs Neutrophils 10.4 10^3/uL High 1.5-7.7 Abs Lymphocytes 2.2 10^3/uL 1.0-4.8 Abs Monocytes 0.3 10^3/uL 0-0.8 Abs Eosinophils 0.4 10^3/uL 0-0.6 Abs Basophils 0.1 10^3/uL 0-0.2 Abs Nucleated RBC 0.01 10^3/uL Granulocyte % 76.9 % 38-83 Lymphocyte % 16.5 % Low 25-47 Monocyte % 2.4 % 1-9 Eosinophil % 3.1 % 0-6 Basophil % 1.1 % 0-2 Nucleated Red Blood Cells % 0.1 Comp Metabolic Panel 02/23/2017 Sodium 133 mmol/L 133-145 Potassium 3.6 mmol/L 3.5-5.0 Chloride 90 mmol/L Low 101-111 Co2 Carbon Dioxide 31 mmol/L 22-32 Anion Gap 12 mmol/L High 2-11 Glucose 263 mg/dL High 70-100 Blood Urea Nitrogen 34 mg/dL High 6-24 Creatinine 1.19 mg/dL High 0.51-0.95 BUN/Creatinine Ratio 28.6 High 8-20 Calcium 9.4 mg/dL 8.6-10.3 Total Protein 6.6 g/dL 6.4-8.9 Albumin 3.8 g/dL 3.2-5.2 Globulin 2.8 g/dL 2-4 Albumin/Globulin Ratio 1.4 1-3 Total Bilirubin 0.40 mg/dL 0.2-1.0 Alkaline Phosphatase 54 U/L 34-104 Alt 18 U/L 7-52 Ast 19 U/L 13-39 Egfr Non- 47.4 >60 Egfr 61.0 >60 18 Laboratory test 02/23/2017 Blood Culture SEE RESULT BELOW 19 finding CD4/CD8 T-Cell Count 02/23/2017 Absolute CD45 Count 2.17 thou/mcL 0.82- 2.84 % CD3 84 % 58-86 % CD4 64 % 32-64 % CD8 20 % 11-40 CD3 1828 cells/L 550-2202 CD4 1386 cells/L 365-1437 CD8 438 cells/L 117-846 H/S Ratio 3.2 >=0.9 CD4 Reviewed By See Comment 20 Laboratory test finding 12/10/2016 Point of Care Glucose 196 mg/dL High 74 -106 21 Laboratory test finding 12/10/2016 (HCG) Urine Negative Negative 22 Laboratory test finding 11/10/2016 Erythrocyte Sed Rate 44 mm/Hr High 0- 30 Blood Culture SEE RESULT BELOW 23 Laboratory test finding 11/10/2016 C Reactive Protein 34.60 mg/L High < 5.00 24 CBC Auto Diff 11/10/2016 White Blood Count 12.6 10^3/uL High 3.5-10.8 Red Blood Count 4.12 10^6/uL 4.0-5.4 Hemoglobin 12.3 g/dL 12.0-16.0 Hematocrit 38 % 35-47 Mean Corpuscular Volume 92 fL 80-97 Mean Corpuscular Hemoglobin 30 pg 27-31 Mean Corpuscular HGB Conc 33 g/dL 31-36 Red Cell Distribution Width 14 % 10.5-15 Platelet Count 288 10^3/uL 150-450 Mean Platelet Volume 9 um3 7.4-10.4 Abs Neutrophils 8.9 10^3/uL High 1.5-7.7 Abs Lymphocytes 2.9 10^3/uL 1.0-4.8 Abs Monocytes 0.4 10^3/uL 0-0.8 Abs Eosinophils 0.4 10^3/uL 0-0.6 Abs Basophils 0.1 10^3/uL 0-0.2 Abs Nucleated RBC 0 10^3/uL Granulocyte % 70.7 % 38-83 Lymphocyte % 23.0 % Low 25-47 Monocyte % 2.9 % 1-9 Eosinophil % 2.9 % 0-6 Basophil % 0.5 % 0-2 Nucleated Red Blood Cells % 0 Connective Tissue Panel 09/30/2016 Anti-Nuclear Antibody 1.1 U High 25 Cyclic Citrullinated Peptide 17.5 U 26 Interpretation See Comment 27 Laboratory test finding 09/30/2016 C Reactive Protein 57.09 mg/L High < 5.00 28 CBC Auto Diff 09/30/2016 White Blood Count 12.8 10^3/uL High 3.5-10.8 Red Blood Count 3.80 10^6/uL Low 4.0-5.4 Hemoglobin 11.3 g/dL Low 12.0-16.0 Hematocrit 35 % 35-47 Mean Corpuscular Volume 92 fL 80-97 Mean Corpuscular Hemoglobin 30 pg 27-31 Mean Corpuscular HGB Conc 32 g/dL 31-36 Red Cell Distribution Width 14 % 10.5-15 Platelet Count 271 10^3/uL 150-450 Mean Platelet Volume 9 um3 7.4-10.4 Abs Neutrophils 9.8 10^3/uL High 1.5-7.7 Abs Lymphocytes 2.0 10^3/uL 1.0-4.8 Abs Monocytes 0.3 10^3/uL 0-0.8 Abs Eosinophils 0.5 10^3/uL 0-0.6 Abs Basophils 0.1 10^3/uL 0-0.2 Abs Nucleated RBC 0 10^3/uL Granulocyte % 77.0 % 38-83 Lymphocyte % 15.9 % Low 25-47 Monocyte % 2.2 % 1-9 Eosinophil % 4.1 % 0-6 Basophil % 0.8 % 0-2 Nucleated Red Blood Cells % 0 Comp Metabolic Panel 09/30/2016 Sodium 133 mmol/L 133-145 Potassium 4.7 mmol/L 3.5-5.0 Chloride 96 mmol/L Low 101-111 Co2 Carbon Dioxide 28 mmol/L 22-32 Anion Gap 9 mmol/L 2-11 Glucose 180 mg/dL High 70-100 Blood Urea Nitrogen 23 mg/dL 6-24 Creatinine 1.42 mg/dL High 0.51-0.95 BUN/Creatinine Ratio 16.2 8-20 Calcium 8.8 mg/dL 8.6-10.3 Total Protein 6.4 g/dL 6.4-8.9 Albumin 3.8 g/dL 3.2-5.2 Globulin 2.6 g/dL 2-4 Albumin/Globulin Ratio 1.5 1-3 Total Bilirubin 0.40 mg/dL 0.2-1.0 Alkaline Phosphatase 57 U/L 34-104 Alt 12 U/L 7-52 Ast 11 U/L Low 13-39 Egfr Non- 38.8 >60 Egfr 50.0 >60 29 Paraneoplastic Evaluation 09/30/2016 Paraneoplastic Ab Interp See Comment 30 Anti-Neuronal Nuclear Ab Type1 Negative titer <1:240 Reflex Added None. 31 Anti-Neuronal Nuclear Ab Type2 Negative titer <1:240 32 Anti-Neuronal Nuclear Ab Type3 Negative titer <1:240 33 Anti-Glial/Neuronal Nuc Ab-1 A Negative titer <1:240 34 Purkinje Cell Cytoplasm Type 1 Negative titer <1:240 35 Purkinje Cell Cytoplasm Type 2 Negative titer <1:240 36 Purkinje Cell Cytoplasm Typ Tr Negative titer <1:240 37 Amphiphysin Antibody Negative titer <1:240 38 CRMP-5 IgG Antibody Negative titer <1:240 39 Anti-Striated Muscle Antibody Negative titer <1:120 40 Calcium Channel Binding Ab P/Q 0.00 nmol/L <=0.02 41 N Type Calcium Channel Binding 0.00 nmol/L <=0.03 42 ACh Receptor Muscle Binding Ab 0.00 nmol/L <=0.02 43 AChR Ganglionic Neuronal Ab 0.00 nmol/L <=0.02 44 Voltage-Gated Potassium Chann 0.00 nmol/L <=0.02 45 Connective Tissue Panel 12/26/2015 Anti-Nuclear Antibody 1.4 U 46 Cyclic Citrullinated Peptide 18.4 U 47 Interpretation See Comment 48 Laboratory test finding 12/26/2015 C Reactive Protein 56.64 mg/L High < 5.00 49 Lyme Disease Serology Negative Negative 50 Pistachio Allergen IgE <0.35 kU/L 51 Sm (Bar) IgG Antibody <0.2 U 52 Nabeel Hep-2 10/20/2015 Nabeel Pattern Homogeneous Negative Nabeel Titer 1:160 <1:80 Nabeel Reviewed By MD Arlin Funk 53 Ssa/SSB Abs Igg 10/20/2015 SS-A/Ro Antibody <0.2 U 54 SS-B/La Antibody <0.2 U 55 Laboratory test finding 10/20/2015 C Reactive Protein 50.21 mg/L High < 5.00 56 Protein Electrophoresis 10/20/2015 Total Protein(Pep) 6.8 g/dL 6.3 - 7.9 Albumin 2.9 g/dL 3.4-4.7 Alpha-1 Globulin 0.3 g/dL 0.1-0.3 Alpha-2 Globulin 1.3 g/dL 0.6-1.0 Beta Globulin 1.2 g/dL 0.7-1.2 Gamma Globulin 1.1 g/dL 0.6-1.6 Albumin/Globulin Ratio 0.72 Impression See Comment 57 Laboratory test finding 10/20/2015 Vitamin B12 > 1450 pg/mL High 180-914 58 Folic Acid (Folate) 14.55 ng/mL >3.99 Methylmalonic Acid Mma 0.18 nmol/mL <=0.40 59 Nabeel (Antinuclear Antibodies) Reflexed to FA Negative Lyme Disease Serology Negative Negative 60 Comp Metabolic Panel 10/20/2015 Sodium 135 mmol/L 133-145 Potassium 4.0 mmol/L 3.5-5.0 Chloride 98 mmol/L Low 101-111 Co2 Carbon Dioxide 28 mmol/L 22-32 Anion Gap 9 mmol/L 2-11 Glucose 139 mg/dL High 70-100 Blood Urea Nitrogen 19 mg/dL 6-24 Creatinine 0.94 mg/dL 0.51-0.95 BUN/Creatinine Ratio 20.2 High 8-20 Calcium 8.9 mg/dL 8.6-10.3 Total Protein 6.6 g/dL 6.4-8.9 Albumin 3.7 g/dL 3.2-5.2 Globulin 2.9 g/dL 2-4 Albumin/Globulin Ratio 1.3 1-3 Total Bilirubin 0.40 mg/dL 0.2-1.0 Alkaline Phosphatase 55 U/L 34-104 Alt 11 U/L 7-52 Ast 12 U/L Low 13-39 Egfr Non- 62.8 >60 Egfr 80.7 >60 61 1 Therapeutic target for the treatment of diabetes mellitus patients is <7% HBA1C, and in selective patients <6.0%. Please refer to [place] [employer] diabetic care guidelines for further information. 2 REFERENCE VALUE <=1.0 (Negative) 3 REFERENCE VALUE <20.0 (Negative) 4 Tests for antibodies to dsDNA and MAMIE antigens are not performed automatically unless the NABEEL result is > or= 3.0 U. Studies performed at [facility] indicate that positive NABEEL results <3.0 U are rarely accompanied by positive second order tests. Test Performed by: [place] [address] 5 Positive for pANCA pattern by immunofluorescence. Suggest further testing for anti-myeloperoxidase (anti-MPO) antibodies, if clinically indicated. ADDITIONAL INFORMATION This test was developed and its performance characteristics determined by [facility] in a manner consistent with CLIA requirements. This test has not been cleared or approved by the U.S. Food and Drug Administration. Test Performed by: [place] [address] 6 Acute inflammation: >10.00 7 Test Performed by: [place] [address] 8 No interferon-gamma response to M. tuberculosis antigens was detected. Infection with M. tuberculosis is unlikely. A single negative result does not exclude infection with M. tuberculosis. In patients at high risk for M.tuberculosis infection, a second test should be considered in accordance with the 2017 ATS/IDSA/CDC Clinical Practice Guidelines for Diagnosis of Tuberculosis in Adults and Children [Francisco NAPOLES et. al. Clin. Infect. Dis. 2017;64(2):111-115]. 9 Test Performed by: [facility] [address] [place] [address] 10 Performed by [employer], [address] [place] [address] www.[employer], Manny Torres MD - Lab. Director Test Performed by: [facility] [address] [place] [address] 11 Normal Range 180 to 914 Indeterminate Range 145 to 180 Deficient Range <145 12 ADDITIONAL INFORMATION This test was developed and its performance characteristics determined by [facility] in a manner consistent with CLIA requirements. This test has not been cleared or approved by the U.S. Food and Drug Administration. Test Performed by: [facility] [address] [place] [address] 13 Because ethnic data is not always readily available, this report includes an eGFR for both -Americans and non- Americans. The National Kidney Disease Education Program (NKDEP) does not endorse the use of the MDRD equation for patients that are not between the ages of 18 and 70, are , have extremes of body size, muscle mass, or nutritional status, or are non- or non-. According to the National Kidney Foundation, irrespective of diagnosis, the stage of the disease is based on the level of kidney function: Stage Description GFR(mL/min/1.73 m(2)) 1 Kidney damage with normal or decreased GFR 90 2 Kidney damage with mild decrease in GFR 60-89 3 Moderate decrease in GFR 30-59 4 Severe decrease in GFR 15-29 5 Kidney failure <15 (or dialysis) 14 Because ethnic data is not always readily available, this report includes an eGFR for both -Americans and non- Americans. The National Kidney Disease Education Program (NKDEP) does not endorse the use of the MDRD equation for patients that are not between the ages of 18 and 70, are , have extremes of body size, muscle mass, or nutritional status, or are non- or non-. According to the National Kidney Foundation, irrespective of diagnosis, the stage of the disease is based on the level of kidney function: Stage Description GFR(mL/min/1.73 m(2)) 1 Kidney damage with normal or decreased GFR 90 2 Kidney damage with mild decrease in GFR 60-89 3 Moderate decrease in GFR 30-59 4 Severe decrease in GFR 15-29 5 Kidney failure <15 (or dialysis) 15 Because ethnic data is not always readily available, this report includes an eGFR for both -Americans and non- Americans. The National Kidney Disease Education Program (NKDEP) does not endorse the use of the MDRD equation for patients that are not between the ages of 18 and 70, are , have extremes of body size, muscle mass, or nutritional status, or are non- or non-. According to the National Kidney Foundation, irrespective of diagnosis, the stage of the disease is based on the level of kidney function: Stage Description GFR(mL/min/1.73 m(2)) 1 Kidney damage with normal or decreased GFR 90 2 Kidney damage with mild decrease in GFR 60-89 3 Moderate decrease in GFR 30-59 4 Severe decrease in GFR 15-29 5 Kidney failure <15 (or dialysis) 16 SEE RESULT BELOW Name: MICHAEL ARENAS : [address]: Elizabeth Irvin MD Acct: [id number] Unit: [id number] AGE: 52 Location: [facility] Re04/27/17 SEX: F Status: REG REF SPEC: [id number] STELLA: 04/27/17-[address]: Elizabeth Irvin MD REQ: [id number] RECD: 04/27/17 STATUS: [facility] : Martin Prince DO _ SOURCE: URINE SPDESC: ORDERED: Urine Culture QUERIES: Urine Source: Clean Catch Procedure Result Reported Site Urine Culture Final 04/28/17- 1622 ML Few Enterobacteriacae; possible contamination. * ML - MAIN LAB (PSC1) . END OF REPORT * ML=Testing performed at Main Lab DEPARTMENT OF PATHOLOGY, [address] [place] [address] Callum Johnson M.D. Director [facility] # [id number] 17 Acute inflammation: >10.00 18 Because ethnic data is not always readily available, this report includes an eGFR for both -Americans and non- Americans. The National Kidney Disease Education Program (NKDEP) does not endorse the use of the MDRD equation for patients that are not between the ages of 18 and 70, are , have extremes of body size, muscle mass, or nutritional status, or are non- or non-. According to the National Kidney Foundation, irrespective of diagnosis, the stage of the disease is based on the level of kidney function: Stage Description GFR(mL/min/1.73 m(2)) 1 Kidney damage with normal or decreased GFR 90 2 Kidney damage with mild decrease in GFR 60-89 3 Moderate decrease in GFR 30-59 4 Severe decrease in GFR 15-29 5 Kidney failure <15 (or dialysis) 19 SEE RESULT BELOW Name: MICHAEL ARENAS : [address]: Alex Doyle MD Acct: [id number] Unit: [id number] AGE: 52 Location: [facility] Re02/23/17 SEX: F Status: REG REF SPEC: [id number] STELLA: 02/23/[address] [facility] [address]: Alex Doyle MD REQ: [id number] RECD: 02/23/17 STATUS: JOYCE LIZ DR: José Miguel Prince DO _ SOURCE: BLOOD,VENO SPDESC: ORDERED: Blood Cult Procedure Result Reported Site Aerobic Culture Bottle Final 02/28/17- 43 ML No Growth Day 5 Anaerobic Culture Bottle Final 02/28/17- 842 ML No Growth Day 5 * ML - [facility] ([facility]) . END OF REPORT * ML=Testing performed at Main Lab DEPARTMENT OF PATHOLOGY, [address] [place] [address] Callum Johnson M.D. Director [facility] # [id number] 20 RESULT: Reviewed by: Jamie Carcamo, Ph.D., D(PADMINI), FAAAAI ADDITIONAL INFORMATION This test was developed using an analyte specific reagent. Its performance characteristics were determined by [facility] in a manner consistent with CLIA requirements. This test has not been cleared or approved by the U.S. Food and Drug Administration. Test Performed by: [address] [address] 21 Mixing Tank Operator: LAPOINT OCT 10 If is still suspected, please repeat test after 48 to 72 hours. This test detects intact HCG only and is indicated for the early detection of . 23 SEE RESULT BELOW Name: MICHAEL ARENAS : [address]: Martin Prince DO Acct: [id number] Unit: [id number] AGE: 51 Location: [facility] Re11/10/16 SEX: F Status: REG REF SPEC: [id number] STELLA: 11/10/[address] [facility] [address]: Martin Prince DO REQ: [id number] RECD: 11/10/16 STATUS: JOYCE LIZ DR: Gage Samuels MD _ SOURCE: BLOOD,VENO SPDESC: ORDERED: Blood Cult Procedure Result Reported Site Aerobic Culture Bottle Final 11/15/16- 1339 ML No Growth Day 5 Anaerobic Culture Bottle Final 11/15/16- 1339 ML No Growth Day 5 * ML - [facility] ([facility]) . END OF REPORT * ML=Testing performed at [facility] DEPARTMENT OF PATHOLOGY, [address] [place] [address] Callum Johnson M.D. Director [facility] # [id number] 24 Acute inflammation: >10.00 25 Interpretation: Weak Positive (1.1-2.9) REFERENCE VALUE <=1.0 (Negative) 26 REFERENCE VALUE <20.0 (Negative) 27 Tests for antibodies to dsDNA and MAMIE antigens are not performed automatically unless the NABEEL result is > or= 3.0 U. Studies performed at [facility] indicate that positive NABEEL results <3.0 U are rarely accompanied by positive second order tests. Test Performed by: [facility] - [address] [address] Clay Temperer: Gabriel Elmore II, M.D., Ph.D. 28 Acute inflammation: >10.00 29 Because ethnic data is not always readily available, this report includes an eGFR for both -Americans and non- Americans. The National Kidney Disease Education Program (NKDEP) does not endorse the use of the MDRD equation for patients that are not between the ages of 18 and 70, are , have extremes of body size, muscle mass, or nutritional status, or are non- or non-. According to the National Kidney Foundation, irrespective of diagnosis, the stage of the disease is based on the level of kidney function: Stage Description GFR(mL/min/1.73 m(2)) 1 Kidney damage with normal or decreased GFR 90 2 Kidney damage with mild decrease in GFR 60-89 3 Moderate decrease in GFR 30-59 4 Severe decrease in GFR 15-29 5 Kidney failure <15 (or dialysis) 30 No informative autoantibodies were detected in this evaluation. However, a negative result does not exclude neurological autoimmunity with or without associated neoplasia. 31 ADDITIONAL INFORMATION This test was developed and its performance characteristics determined by [facility] in a manner consistent with CLIA requirements. This test has not been cleared or approved by the U.S. Food and Drug Administration. 32 ADDITIONAL INFORMATION This test was developed and its performance characteristics determined by [facility] in a manner consistent with CLIA requirements. This test has not been cleared or approved by the U.S. Food and Drug Administration. 33 ADDITIONAL INFORMATION This test was developed and its performance characteristics determined by [facility] in a manner consistent with CLIA requirements. This test has not been cleared or approved by the U.S. Food and Drug Administration. 34 ADDITIONAL INFORMATION This test was developed and its performance characteristics determined by [facility] in a manner consistent with CLIA requirements. This test has not been cleared or approved by the U.S. Food and Drug Administration. 35 ADDITIONAL INFORMATION This test was developed and its performance characteristics determined by [facility] in a manner consistent with CLIA requirements. This test has not been cleared or approved by the U.S. Food and Drug Administration. 36 ADDITIONAL INFORMATION This test was developed and its performance characteristics determined by [facility] in a manner consistent with CLIA requirements. This test has not been cleared or approved by the U.S. Food and Drug Administration. 37 ADDITIONAL INFORMATION This test was developed and its performance characteristics determined by [facility] in a manner consistent with CLIA requirements. This test has not been cleared or approved by the U.S. Food and Drug Administration. 38 ADDITIONAL INFORMATION This test was developed and its performance characteristics determined by [facility] in a manner consistent with CLIA requirements. This test has not been cleared or approved by the U.S. Food and Drug Administration. 39 ADDITIONAL INFORMATION This test was developed and its performance characteristics determined by [facility] in a manner consistent with CLIA requirements. This test has not been cleared or approved by the U.S. Food and Drug Administration. 40 ADDITIONAL INFORMATION This test was developed and its performance characteristics determined by [facility] in a manner consistent with CLIA requirements. This test has not been cleared or approved by the U.S. Food and Drug Administration. 41 ADDITIONAL INFORMATION This test was developed and its performance characteristics determined by [facility] in a manner consistent with CLIA requirements. This test has not been cleared or approved by the U.S. Food and Drug Administration. 42 ADDITIONAL INFORMATION This test was developed and its performance characteristics determined by [facility] in a manner consistent with CLIA requirements. This test has not been cleared or approved by the U.S. Food and Drug Administration. 43 ADDITIONAL INFORMATION This test was developed and its performance characteristics determined by [facility] in a manner consistent with CLIA requirements. This test has not been cleared or approved by the U.S. Food and Drug Administration. 44 ADDITIONAL INFORMATION This test was developed and its performance characteristics determined by [facility] in a manner consistent with CLIA requirements. This test has not been cleared or approved by the U.S. Food and Drug Administration. 45 ADDITIONAL INFORMATION This test was developed and its performance characteristics determined by [facility] in a manner consistent with CLIA requirements. This test has not been cleared or approved by the U.S. Food and Drug Administration. Test Performed by: [address] [address] Clay Temperer: Gabriel Elmore II, M.D., Ph.D. 46 Interpretation: Weak Positive (1.1-2.9) REFERENCE VALUE <=1.0 (Negative) 47 REFERENCE VALUE <20.0 (Negative) 48 Tests for antibodies to dsDNA and MAMIE antigens are not performed automatically unless the NABEEL result is > or= 3.0 U. Studies performed at [facility] indicate that positive NABEEL results <3.0 U are rarely accompanied by positive second order tests. Test Performed by: [place] [address] Clay Temperer: Gabriel Elmore II, M.D., Ph.D. 49 Acute inflammation: >10.00 50 Serologic response to B. burgdorferi infection is not detected, but cannot rule out early infection during which low or undetectable antibody levels to B. burgdorferi may be present. If clinically indicated, a new serum specimen should be submitted in 7-14 days. Test Performed by: [place] [address] Clay Temperer: Gabriel Elmore II, M.D., Ph.D. 51 Class 0 (Negative <0.35) Test Performed by: [facility] [place] [address] Clay Temperer: Gabriel Elmore II, M.D., Ph.D. 52 REFERENCE VALUE <1.0 (Negative) Test Performed by: [facility] [place] [address] Clay Temperer: Gabriel Elmore II, M.D., Ph.D. 53 Arlin Funk 54 REFERENCE VALUE <1.0 (Negative) 55 REFERENCE VALUE <1.0 (Negative) Test Performed by: [place] [address] Clay Temperer: Gabriel Elmore II, M.D., Ph.D. 56 Acute inflammation: >10.00 57 RESULT: No apparent monoclonal protein on serum electrophoresis. Test Performed by: [place] [address] Clay Temperer: Gabriel Elmore II, M.D., Ph.D. 58 Normal Range 180 to 914 Indeterminate Range 145 to 180 Deficient Range <145 59 Test Performed by: [place] [address] Clay Temperer: Gabriel Elmore II, M.D., Ph.D. 60 Serologic response to B. burgdorferi infection is not detected, but cannot rule out early infection during which low or undetectable antibody levels to B. burgdorferi may be present. If clinically indicated, a new serum specimen should be submitted in 7-14 days. Test Performed by: [facility] [place] [address] Clay Temperer: Gabriel Elmore II, M.D., Ph.D. 61 Because ethnic data is not always readily available, this report includes an eGFR for both -Americans and non- Americans. The National Kidney Disease Education Program (NKDEP) does not endorse the use of the MDRD equation for patients that are not between the ages of 18 and 70, are , have extremes of body size, muscle mass, or nutritional status, or are non- or non-. According to the National Kidney Foundation, irrespective of diagnosis, the stage of the disease is based on the level of kidney function: Stage Description GFR(mL/min/1.73 m(2)) 1 Kidney damage with normal or decreased GFR 90 2 Kidney damage with mild decrease in GFR 60-89 3 Moderate decrease in GFR 30-59 4 Severe decrease in GFR 15-29 5 Kidney failure <15 (or dialysis) Procedures Date CPT Code Description Status 07/04/2017 55609 Inject/Drain Joint/Bursa Major W/O US Completed 06/20/2017 86006 ECHO Transthorasic Realtime 2D W Doppler & Color Flow Completed Hosp 04/27/2017 95779 EKG, Interpretation Only Completed 12/09/2015 65829 Nerve Conduction 07-08 Studies Completed 12/09/2015 96665 Needle Electromyography Each Extremity W/Related Completed Paraspinal Areas 04/21/2015 40294 Stress Test Completed 04/21/2015 19896 Myocardial Perfusion Imaging Tomographic (Spect) Completed Multiple Studies 02/26/2015 68140 Hyperbaric Oxygen Therapy By Physician Completed 02/25/2015 34136 Hyperbaric Oxygen Therapy By Physician Completed 02/20/2015 53026 Hyperbaric Oxygen Therapy By Physician Completed Encounters Type Date Location Provider CPT E/M Dx Office Visit 01/19/2018 [place] Herminia Diaz M.D. 27534 G62.9 3:45p Services Of [facility] M06.4 M79.1 G25.81 E87.1 Z79.899 Office Visit 01/12/2018 1:51p [facility], [place] [address] E87.1 Hospitalists E03.9 G47.33 Office Visit 01/11/2018 1:48p [facility],[place] [address] E87.1 Hospitalists E03.9 G47.33 Office Visit 01/10[facility]2018 [facility] [place] [address] E87.1 Assoc, Hospitallewis Saucedo E03.9 G47.33 Office Visit 12/13/2017 9:00a [place] [facility] Kamran Diaz, 57737 G62.9 Services Of Bea Saucedo M06.4 M79.1 G25.81 G47.61 Office Visit 12/07/2017 2:00p Rheumatology Services Of [place], [address] G62.9 Bea Saucedo M06.4 M79.1 R20.8 Z79.899 Office Visit 12/01/2017 2:24p [facility] Gage Navarrete, [address] F44.4 Lewis Office Visit 08/29/2017 9:45a [place]/Sean Iqbalman, [address]456 G62.9 Neurologic Serv Of [place] M.DLeslie G25.81 G47.61 Office Visit 07/04/2017 8:15a Orthopedic Services Of Elizabeth Irvin M.D. 20278 M25.562 CLeslieMWilliam M25.462 M17.12 Office Visit 06/21/2017 11:22a [facility], [place] [address] I50.33 Hospitalists E03.9 E78.5 I10 Office Visit 06/20/2017 11:21a [facility], 66369 I50.33 Assoc, Hospitalists N.P. E03.9 E78.5 I10 Office Visit 04/30/2017 10:15a [facility], [place] [address] I50.33 Hospitalists E66.01 I10 Office Visit 04/29/2017 10[facility] [place] [address] I50.33 Hospitalists I10 E66.01 Office Visit 04/18/2017 2:00p [place] Lisseth Samuels, 06367 G62.9 Neurologic Serv Of [place] M.D. Office Visit 04/15/2017 10:00a [facility] Of Elizabeth Irvin, 38945 M25.562 C.Darlene Saucedo M25.462 M17.12 E66.01 Office Visit 04/11/2017 10:20a [facility] Lady Sargent M.D. 48147 D72.829 Of [place] AT [place] K50.918 R79.82 R70.0 D64.9 Office Visit 03/12/2017 1:37p [facility], Myrna Montgomery N.PLeslie 33758 R50.9 Hospitalists M79.604 G62.9 W19.xxxA Office Visit 02/28/2017 10:40a [facility]ent M.D. 39168 D72.829 Of [place] AT [place] Z85.9 R50.9 R79.82 R70.0 Office Visit 02/22/2017 11:10a [facility] Alex Doyle, 71456 R50.9 Infectious Diseases M.D. R79.82 Office Visit 01/31/2017 9:00a [facility] Sargent M.D. 75365 D72.829 Of [place] AT [place] R70.0 R79.82 K50.90 M06.9 Office Visit 12/20/2016 9:30a Neurosurgery Services Gage Sinha M.D. 70550 M54.2 Of [place] M54.5 R20.0 Office Visit 11/10/2016 2:20p Neurosurgery Services Gage Sinha, 18112 Z86.14 Of [place] AT [facility] R20.0 M54.2 M54.5 R47.01 Office Visit 10/13/2016 11:00a Orthopedic Services Of Jd Baez, 63493 G60.9 [place] AT [facility] M48.06 Office Visit 09/29/2016 10:00a [facility] Lisseth Samuels, 63867 G60.9 Neurologic Serv Of [place] M.D. G25.81 G47.61 G56.03 G57.53 R47.01 R40.0 C85.90 Office Visit 06/11/2016 9:45a [place] Lisseth Samuels, 40738 G62.9 Neurologic Serv Of [place] M.D. G25.81 R20.2 Office Visit 03/01/2016 11:45a [place] Sam[place], 39528 G62.9 Neurologic Serv Of [place] M.D. Office Visit 12/09/2015 3:00p [place] [facility] Lisseth Samuels, 52625 G60.9 Services Of [place] M.D. R26.81 Office Visit 10/14/2015 10:00a [place] [facility] Lisseth Samuels, 93634 G60.9 Services Of [place] M.D. R26.81 G25.81 G47.61 Plan of Care Future Appointment(s):06/14/2018 9:00 am - Kamran Diaz M.D. at [facility] Neurologic Serv Of [facility]04/07/2018 - Kamran Diaz M.D.G62.9 Polyneuropathy, unspecifiedFollow up:Follow up in 2 monthsRecommendations:Call me 1-2 days after endocrinology appointment and I will touch base to Dr. Devine regarding additional workup plans.M06.4 Inflammatory xiebilzbaxldiclW95.1 FiglgbqX64.81 Restless legs syndrome
--- NOTE | 2018-05-02 09:12 | ED ---
Shortness of Breath - HPI Summary HPI Summary: This is scribe Nathan Avilez documenting for Eliseo Benz M.D. Patient is a 53 y/o F w/ c/o SOB, epigastric pain, and diarrhea x4 controlled with Imodium onsetting today around 0430. She reports she managed to sleep for a bit and awoke later at 0530. She states she went to shower as per her normal morning routine, couldn't breathe and went to take O2 from her Bipap. Patient reports Hx of sleep apnea and does not have nasal cannula. She reports she is on 3 L of O2 at home. She called her who then called EMS. EMS provided 15 L O2. On triage, pain is rated 5/10 and it is noted Imodium relieved diarrhea. In room, patient reports "labored" breathing and feels like she cannot fully expand her lungs. She also reports Hx of Crohn's disease. Patient also notes that recently she has been feeling bloated and has been experiencing ankle edema. Hx of fluids around lungs and heart is also noted. She claims Dx of PNA previously. Patient reports seeing two different cardiologists. Both stated she did not have CHF and was released from her care. Patient takes BP meds, metoprolol, 50 mg. Patient reports BP with meds is around 116/72, without 140/80. In the room, vitals are 179/133, pulse 86, 96 O2 sat. She also reports muscle spasms two days ago. Patient denies any Sx whatsoever yesterday. I, Dr. Benz, personally performed the services described in this documentation as scribed in my presence and it is both accurate and complete. - History of Current Complaint Chief Complaint: EDAbdPain Hx Obtained From: Patient Onset/Duration: Sudden Onset, Lasting Hours - onset today at 0430, Still Present - patient still notes "labored" breathing, epigastric pain, Resolved - diarrhea Timing: Constant Current Severity: Moderate - on triage, pain is 5/10 Aggrevating Factors: Nothing Alleviating Factors: OTC Meds - imodium relieved diarrhea - Allergy/Home Medications Allergies/Adverse Reactions: Allergies Allergy/AdvReac Type Severity Reaction Status Date / Time morphine Allergy Hives Verified 01/09/18 19:55 Sulfa (Sulfonamide Allergy Hives Verified 01/09/18 19:55 Antibiotics) Home Medications: Home Medications Aspirin EC TAB* [Ecotrin EC Low Dose 81 MG*] 81 mg PO DAILY 05/02/18 [History Confirmed 05/02/18] DULoxetine DR CAP* [Cymbalta CAP*] 60 mg PO DAILY 05/02/18 [History Confirmed ] Demeclocycline TAB* [Declomycin TAB*] 150 mg PO BID 05/02/18 [History Confirmed 05/02/18] Diphenoxylat/Atrop 2.5-0.025M* [Lomotil TAB*] 2 tab PO QID PRN 05/02/18 [ History Confirmed 05/02/18] Gabapentin CAP(*) [Neurontin 100 mg CAP(*)] 100 mg PO BEDTIME 05/02/18 [History Confirmed 05/02/18] Gabapentin CAP(*) [Neurontin 400 mg CAP(*)] 800 mg PO BEDTIME 05/02/18 [History Confirmed 05/02/18] Levothyroxine TAB* [Synthroid TAB*] 75 mcg PO DAILY 05/02/18 [History Confirmed 05/02/18] Levothyroxine TAB* [Synthroid TAB*] 200 mcg PO DAILY 05/02/18 [History Confirmed 05/02/18] Liraglutide (NF) [Victoza (NF)] 1.2 mg SUBCUT DAILY 05/02/18 [History Confirmed 05/02/18] Magnesium Oxide TAB* [MagOx 400 TAB*] 800 mg PO BID 05/02/18 [History Confirmed 05/02/18] Norethindrone-E.estradiol-Iron [Microgestin Fe 1.5-30 Tab] 1 tab PO DAILY [History Confirmed 05/02/18] OXcarbazepine TAB(*) [Trileptal 300 mg TAB(*)] 300 mg PO DAILY 05/02/18 [ History Confirmed 05/02/18] metFORMIN* [Glucophage 1000 MG TAB *] 1,000 mg PO DAILY 05/02/18 [History Confirmed 05/02/18] PMH/Surg Hx/FS Hx/Imm Hx Endocrine/Hematology History: Reports: Hx Diabetes - type 2, Hx Thyroid Disease - hypo Cardiovascular History: Reports: Hx Congestive Heart Failure, Hx Hypertension - on meds Denies: Hx Pacemaker/ICD, Other Cardiovascular Problems/Disorders Respiratory History: Reports: Hx Pneumonia Denies: Hx Asthma, Hx Chronic Obstructive Pulmonary Disease (COPD), Other Respiratory Problems/Disorders GI History: Reports: Hx Crohn's Disease Denies: Other GI Disorders History: Denies: Hx Renal Disease Musculoskeletal History: Reports: Hx Arthritis - hands, toes, hips, Hx Rheumatoid Arthritis - Has had Remicaide 06/2014 Sensory History: Reports: Hx Contacts or Glasses Denies: Hx Hearing Aid, Hx Hearing Problem Opthamlomology History: Reports: Hx Contacts or Glasses Neurological History: Reports: Hx Migraine - only a few, 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 tonsilectomy. galbladder removed. appendix. left 3rd toe amputation. 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 Denies: Traveled Outside the in Last 30 Days - Family History Known Family History: Positive: Cardiac Disease, Hypertension, Diabetes - Social History Alcohol Use: Rare Alcohol Amount: holidays Hx Substance Use: No Substance Use Type: Reports: None Hx Tobacco Use: No Smoking Status (MU): Never Smoked Tobacco Review of Systems Positive: Shortness Of Breath Positive: Abdominal Pain - epigastric , Diarrhea - x4, controlled with Imodium , Other - abdominal bloating Positive: Edema - bilateral ankle edema reported All Other Systems Reviewed And Are Negative: Yes Physical Exam - Summary Physical Exam Summary: Appearance: The patient is morbidly obese and in no acute distress and in no acute pain. Skin: The skin is warm and dry and skin color reflects adequate perfusion. HEENT: The head is normocephalic and atraumatic. The pupils are equal and reactive. The conjunctivae are clear and without drainage. Nares are patent and without drainage. Mouth reveals moist mucous membranes and the throat is without erythema and exudate. The external ears are intact. The ear canals are patent and without drainage. The tympanic membranes are intact. Neck: The neck is supple with full range of motion and non-tender. There are no carotid bruits. There is no neck vein distension. Respiratory: Chest is non-tender. Crackles about [address] bilaterally in lungs. No other significant findings noted. Cardiovascular: Heart is regular rate and rhythm. There is no murmur or rub auscultated. There is no peripheral edema and pulses are symmetrical and equal. Abdomen: The abdomen is soft and non-tender. There are hyperactive normal bowel sounds heard; there is no organomegaly palpated. Musculoskeletal: There is no back tenderness noted. Extremities are non-tender with full range of motion. There is good capillary refill. There is no peripheral edema or calf tenderness elicited. Neurological: Patient is alert and oriented to person, place and time. The patient has symmetrical motor strength in all four extremities. Cranial nerves are grossly intact. Deep tendon reflexes are symmetrical and equal in all four extremities. Psychiatric: The patient has an appropriate affect and does not exhibit any anxiety or depression. Triage Information Reviewed: Yes Vital Signs On Initial Exam: Initial Vitals Temp Pulse Resp BP Pulse Ox 97.2 F 94 20 179/113 96 05/02/18 08:48 05/02/18 08:48 05/02/18 08:48 05/02/18 08:48 05/02/18 08:48 Vital Signs Reviewed: Yes Diagnostics - Vital Signs Vital Signs Temp Pulse Resp BP Pulse Ox 05/02/18 08:48 97.2 F 94 20 179/113 96 - Laboratory Result Diagrams: 05/02/18 15:35 05/02/18 15:35 Lab Statement: Any lab studies that have been ordered have been reviewed, and results considered in the medical decision making process. - Radiology CXR Xray Interpretation: Positive (See Comments) Radiology Interpretation Completed By: Radiologist - findings most consistent with CHF less likely PNA; this report was reviewed by ED physician. Re-Evaluation - Re-Evaluation First Eval Re-Evaluation Time: 11:13 Comment: Discussed results of labs and imaging as well as consult with patient. Admission was recommended for patient for further workup, patient agrees with plan. Course/Dx - Course Course Of Treatment: Ms. Cevallos presented complaining of shortness of breath. She woke up and felt short of breath this morning and tried to take a shower and was unable to because of the shortness of breath. She called her to come home and called the ambulance. She presented with respiratory insufficiency and was found to have some CHF. She was given a loading dose of Lasix and the hospitalists were asked to admit her. - Diagnoses Provider Diagnoses: CHF (congestive heart failure) - Physician Notifications Discussed Care of Patient With: Mckay Onofre Time Discussed With Above Provider: 11:10 Instructed by Provider To: Other - Dr. Onofre was consulted on patient's case at 1110. Dr. Onofre agrees to accept patient for admission to [facility]. - Critical Care Time Critical Care Time: 30-74 min Discharge - Sign-Out/Discharge Documenting (check all that apply): Patient Departure - admit - Discharge Plan Condition: Good Disposition: ADMITTED TO [facility] - Billing Disposition and Condition Condition: GOOD Disposition: Admitted to [facility]
[2018-05-02 10:16] LABS: ABS Basophils 0.1 10^3/ul (0-0.2); ABS Eosinophils 0.3 10^3/ul (0-0.6); ABS Lymphocytes 1.4 10^3/ul (1.0-4.8); ABS Monocytes 0.3 10^3/ul (0-0.8); ABS Neutrophils 11.4 10^3/ul (1.5-7.7); ABS Nucleated RBC 0 10^3/ul; Eosinophil % 2.1 % (0-6); Hematocrit 30 % (35-47); Hemoglobin 9.7 g/dl (12.0-16.0); Lymphocyte % 10.1 % (25-47); Mean Corpuscular HGB Conc 32 g/dl (31-36); Mean Corpuscular Hemoglobin 30 pg (27-31); Mean Corpuscular Volume 93 fL (80-97); Mean Platelet Volume 8.1 um3 (7.4-10.4); Nucleated Red Blood Cells % 0; Platelet Count 347 10^3/ul (150-450); Red Blood Count 3.24 10^6/ul (4.00-5.40); Red Cell Distribution Width 15 % (10.5-15); White Blood Count 13.4 10^3/ul (3.5-10.8)
--- NOTE | 2018-05-02 10:35 | RAD ---
INDICATION: Shortness of breath. COMPARISON: Comparison is made with a prior chest x-ray study from June 20, 2017. TECHNIQUE: AP and lateral views of the chest were obtained. FINDINGS: The heart is mildly enlarged. There is diffuse prominence of the interstitial markings with thickening of the fissures and mild infiltrates at both lung bases. There is a small right pleural effusion. IMPRESSION: FINDINGS MOST CONSISTENT WITH CONGESTIVE HEART FAILURE LESS LIKELY PNEUMONIA.
[2018-05-02] MEDS ORDERED: Furosemide IV* 10 MG/ML VIAL (40 MG) IV ONE ×2 (11:18→18:17)
[2018-05-02] MEDS ORDERED: Diphenoxylat/Atrop 2.5-0.025M* 1 TAB PO PRN (12:53)
[2018-05-02] MEDS ORDERED: Dextrose 50% Syringe 50 ML* 25 GM/50 ML SYRINGE IV PUSH PRN (13:02)
[2018-05-02] MEDS ORDERED: Iodixanol* (CONTRAST) 320 MG/ML 100 ML SDV IV ONE (13:07)
--- NOTE | 2018-05-02 14:41 | HP ---
CC: Dr. Prince; Dr. Onofre* ADMISSION HISTORY AND PHYSICAL: DATE OF ADMISSION: 05/02/18 PRIMARY CARE PROVIDER: Martin Prince DO ATTENDING FOR THIS ADMISSION AND MY ATTENDING FOR TODAY: Claude Onofre MD* ( dictated by Sabina Gomez NP). CHIEF COMPLAINT: Shortness of breath. HISTORY OF PRESENT ILLNESS: This is a very pleasant 53-year-old female patient who reported shortness of breath that awoke her from sleep at approximately 04: 30 this morning. Her was awake already, getting ready for work and she told him she thought may be she was having an anxiety attack. When she felt shortness of breath, she had had a nightmare as well. The patient states she tried to go back to sleep. Her went to work and approximately a couple of hours later at about 07:15 in the morning, the patient called her and said her shortness of breath was very persistent and she was having trouble breathing. Her works close by their house. He called 911, met the EMS services at the house and the patient was transported to the emergency department. EMS notes that the patient was tachycardic, hypotensive, tachypneic with a low pulse ox. In the emergency department, the patient was still presenting with shortness of breath. She remains on oxygen at this time. Her chest x-ray reveals some fluid overload. Also, her heart rate has now come down. She did receive Lasix. At that point, we were called to evaluate the patient for admission. PAST MEDICAL HISTORY: Significant for Crohn's disease, diabetes, hypertension, morbid obesity, SHANI, and right lower extremity DVT. PAST SURGICAL HISTORY: Includes several colon resections, most recent 1 approximately 12 years ago, right knee replacement 10 years ago, appendectomy in 1975, tonsillectomy in 1964, laminectomy approximately 15 years ago. MEDICATIONS AT HOME: Include: 1. Aspirin 81 mg daily. 2. Losartan 25 mg daily. 3. Synthroid 125 mcg daily. 4. Gabapentin 900 mg q.h.s. 5. Metoprolol succinate 50 mg daily. 6. control 1 tablet daily. 7. Trileptal 300 mg daily. 8. Lomotil 2 to 3 times a day as needed. ALLERGIES: The patient has an allergy to morphine and sulfa, both of which give her rash. FAMILY HISTORY: Father with cardiomegaly. Mother with MS and of aspiration pneumonitis. SOCIAL HISTORY: The patient does not smoke and has never. The patient does not drink any alcohol. Denies any illicit drug use. She is disabled. Lives at home with her and her stepdaughter. REVIEW OF SYSTEMS: The patient denies any fever, fatigue, or chills. She does have some anxiety. She does complain of shortness of breath. Denies any chest pain. Denies any wounds or rashes to her skin. Denies any headache. She does state that she has had unexpected weight gain of 15 pounds in 2 weeks, but reports no excessive thirst or urination. No palpitations. No episodes of syncope at home and no further constitutional complaints. PHYSICAL EXAMINATION GENERAL: The patient is alert, in moderate distress. VITAL SIGNS: Currently, blood pressure 179/113, O2 saturation 96% on 2 L, respiratory rate 24, pulse 94, temperature 97.2. HEENT: The patient is atraumatic, normocephalic. PERRLA with nonicteric sclerae. Oral mucosa is moist. Tongue is midline. NECK: Supple. Nontender. No JVD noted. No carotid bruit auscultated. LUNGS: Clear at the apices bilaterally. She does have some rales on the right lower base. No wheezing or rhonchi noted. CARDIOVASCULAR: S1, S2 present. No murmurs, gallops, or rubs noted. Rate and rhythm are regular. ABDOMEN: Soft, nontender, nondistended. Body habitus prevents me from noting any organomegaly. However, the patient does state that she feels she does have some sacral edema, which is above her baseline. Her abdomen is very obese and protuberant. : Deferred. MUSCULOSKELETAL: There is no clubbing and no cyanosis. She does have edema to the right lower extremity. Her right ankle appears larger than the left. She does have a patchy area of dry skin in the medial aspect of the lower part of the calf. It appears dry and scaly. The patient states this has been there for about a week. She does have a peripheral pulse +2 bilaterally in the lower extremities. NEUROLOGIC: She is grossly intact with no focalities. PSYCHIATRIC: She is cooperative, appropriate, and anxious. LABORATORY DATA: WBCs 13.4, RBCs 3.24, hemoglobin 9.7, hematocrit 30, platelets 347. Sodium 133, potassium 4.9, chloride 99, CO2 24, BUN 14, creatinine 0.78, GFR 77, glucose 171. Calcium 8.4. Bilirubin 0.50, AST 10, ALT 11, alk phos 67. Troponin is negative at 0.03. CRP is 141.8. BNP is 270. Protein 6.7. Albumin 3.6, globulin 3.1. IMAGING: Chest x-ray shows diffuse prominence of the interstitial markings and thickening of the fissures and mild infiltrates in both lung bases. There is a small right pleural effusion. Impression is findings most consistent with congestive heart failure and less likely pneumonia. IMPRESSION: This is a 53-year-old female patient with a history of hypertension, Crohn's disease, hyperlipidemia, and DVT in the past that presented with acute shortness of breath with low pulse ox, hypotension, and tachycardia in the emergency department today. PLAN: 1. Shortness of breath, congestive heart failure versus pulmonary embolism. At this point, the patient has received 40 mg of Lasix IV. She is remaining on oxygen at 2 L and maintaining saturation of about 96%. We performed an EKG, which does not appear to have any acute ST segment changes and no ST segment depressions. We will get an echocardiogram of her heart to evaluate her left ventricular function and also evaluate for any valvular disorders given the appearance of heart failure on her chest x-ray. However, given her history of DVT in the past, I will send her for a CT angiogram of the chest to rule out pulmonary embolism, the sudden nature of her shortness of breath and then lack of anticoagulation 2 years ago. The patient reports she was only on Xarelto for 2 weeks, also with asymmetry in the lower extremity circumference makes me to believe we should rule out a clot in the chest. 2. For her hypertension, we will continue her on her losartan and her metoprolol at the current doses. I am hoping the Lasix, which we will continue 40 mg IV daily will also alleviate some of her hypertension. 3. For her history of anemia, the H and H are stable. I do not feel the hemoglobin at 9.6 is low enough to be causing her shortness of breath. This is likely secondary to her obesity. We will monitor her labs daily. 4. For her diabetes, she will be on consistent carb diet. We will hold her metformin and put her on lispro sliding scale, also with consistent carb diet. 5. For her history of Crohn's disease, we will continue her on Lomotil. She is not currently taking any biologics. 6. For her hypothyroidism, we will continue her Synthroid at the current dose. 7. For her depression and anxiety, we will continue her on her Trileptal and also her gabapentin. Daily aspirin will be maintained. 8. SHANI, she does not have her CPAP with her, will place on hospital equipment. 8. DVT prophylaxis. We will start her on heparin 5000 units q.8 hours. If she has a positive finding on her CTA of the chest, we will fully anticoagulate her. 9. She is a full code. Her healthcare proxy is her , Mr. Cevallos who is at the bedside. The rest of the patient's course will be determined by further diagnostics, laboratories, and any other input from other providers as warranted during this admission. This admission has been discussed with Dr. Onofre, my attending for today and he is in agreement with the plan. SABINA GOMEZ, MICHELE [id number]/CPS #: [id number] DACIA
[2018-05-02] MEDS: Heparin VIAL(*) 5000 UNITS/ML VIAL (FIVE THOUSAND) SUBCUT SCH ×2 (15:34→22:00)
[2018-05-02 15:43] LABS: ABS Basophils 0 10^3/ul (0-0.2); ABS Eosinophils 0.3 10^3/ul (0-0.6); ABS Lymphocytes 1.9 10^3/ul (1.0-4.8); ABS Monocytes 0.2 10^3/ul (0-0.8); ABS Neutrophils 9.2 10^3/ul (1.5-7.7); ABS Nucleated RBC 0 10^3/ul; Eosinophil % 2.5 % (0-6); Hematocrit 31 % (35-47); Hemoglobin 10.1 g/dl (12.0-16.0); Lymphocyte % 16.5 % (25-47); Mean Corpuscular HGB Conc 33 g/dl (31-36); Mean Corpuscular Hemoglobin 30 pg (27-31); Mean Corpuscular Volume 92 fL (80-97); Mean Platelet Volume 7.6 um3 (7.4-10.4); Nucleated Red Blood Cells % 0; Platelet Count 343 10^3/ul (150-450); Red Blood Count 3.36 10^6/ul (4.00-5.40); Red Cell Distribution Width 15 % (10.5-15); White Blood Count 11.8 10^3/ul (3.5-10.8)
[2018-05-02 15:51] LABS: INR 0.95 (0.77-1.02)
[2018-05-02 16:25] LABS: EGFR Non-African American 75.8 (>60)
[2018-05-02] MEDS: Insulin LISPRO* 1 UNITS UNIT SUBCUT SCH ×2 (17:12→21:00)
--- NOTE | 2018-05-02 17:40 | RAD ---
INDICATION: Chest pain. Short of breath. Evaluate for pulmonary embolus. COMPARISON: Chest x-ray May 02, 2018 TECHNIQUE: Axial source images were obtained from the thoracic inlet to the hemidiaphragms following administration of [address] angiographic technique was utilized. Coronal and sagittal reconstructed images were acquired. CHEST FINDINGS: Neck/thyroid: The visualized neck to include the thyroid appear normal. Chest wall: There are no acute abnormalities of the bony thorax or chest wall. There is no supraclavicular, infraclavicular, or axillary lymphadenopathy. Lungs : There is prominent interstitium likely related to interstitial edema. In addition there are alveolar changes in the lingular segment and the medial aspects of both lung bases which could represent atelectasis or an acute pneumonitis. Cardiomediastinal structures: There is no CT evidence of acute pulmonary embolic disease. The heart is mildly enlarged. There is no pericardial effusion. There is no evidence of aortic aneurysm or dissection. There is no mediastinal or hilar adenopathy. The esophagus appears normal. Pleura : There are small to moderate-sized bilateral pleural effusions. Other: There is hepatic steatosis. IMPRESSION: 1. Bilateral infiltrates. 2. Suspect vascular congestive findings. 3. No CT evidence of acute pulmonary embolic disease. 4. Hepatic steatosis.
--- NOTE | 2018-05-02 17:46 | ECHO ---
Patient: MICHAEL ARENAS [facility] Rec#: [id number] : 1965 Date: 05/02/2018 Age: 53y Height: 162.56 cm / 64.0 in Weight: 164.65 kg / 362.9 lbs Sex: F BSA: 2.52 Room#: [facility] Admit Date#: 05/02/2018 Type: Inpatient Referring: Mckay Onofre MD Reading: Serafin Mckeon MD Bus Person: Sivan FelixANA CC: Niki CHAN,Martin Transthoracic Echocardiogram Indication: Congestive heart failure BP: 179/113 HR: 88 Rhythm: NSR Findings History: DMII, MO, hypothyroid, CHF, HTN, A-fib, DVT, uterine cancer. Technical Comments: The study quality is fair. Completed at 1630. Left Ventricle: The left ventricular chamber size is normal. Mild concentric left ventricular hypertrophy is observed. There is global hypokinesis of the left ventricle with minor regional variation. There is mild to moderately decreased left ventricular systolic function. The estimated ejection fraction is 35-40%. There is septal flattening of the interventricular septum consistent with right ventricular volume or pressure overload. There is no consistent Doppler evidence of clinically significant diastolic dysfunction. Left Atrium: The left atrium is severely dilated. Right Ventricle: Moderator Band present. The right ventricle is moderately dilated. The right ventricular global systolic function is mildly to moderately reduced. Right Atrium: The right atrial cavity size is severely dilated. Aortic Valve: The aortic valve is trileaflet. The aortic valve leaflets are mildly thickened. There is a trace of aortic regurgitation. There is no evidence of aortic stenosis. Mitral Valve: The mitral valve leaflets are mildly thickened. There is mild mitral regurgitation. There is no evidence of mitral stenosis. Tricuspid Valve: The tricuspid valve leaflets are normal. There is mild tricuspid regurgitation. The right ventricular systolic pressure is estimated at 33 mmHg. There is evidence that pulmonary hypertension may be underestimated. There is no tricuspid stenosis. Pulmonic Valve: The pulmonic valve appears normal. There is a trace pulmonic regurgitation. There is no pulmonic stenosis. Pericardium: There is no significant pericardial effusion. A pericardial fat pad is visualized. Aorta: There is mild dilatation of the ascending aorta. There is no dilatation of the aortic arch. The aortic root is normal in size. Pulmonary Artery: The main pulmonary artery is not well visualized. Venous: The inferior vena cava is dilated. There is a greater than 50% respiratory change in the inferior vena cava dimension. Conclusions Mild concentric left ventricular hypertrophy is observed. There is mild to moderately decreased left ventricular systolic function. There is global hypokinesis of the left ventricle with minor regional variation. The estimated ejection fraction is 35-40%. The right ventricular global systolic function is mildly to moderately reduced. There is a trace of aortic regurgitation. There is mild mitral regurgitation. There is mild tricuspid regurgitation. The right ventricular systolic pressure is estimated at 33 mmHg. There is evidence that pulmonary hypertension may be underestimated. There is no significant pericardial effusion. Compared to study of 06/20/17, the LV dysfunction is new. The valve structures are the same Measurements Name Value Normal Range RVIDd (AP) 2D 2.5 cm (0.9 - 2.6) RVDdMajor (2D) 5.8 cm (2.2 - 4.4) RAd ISD 4CH 6.6 cm (3.4 - 4.9) RA (A4C)W 4.8 cm (2.9 - 4.6) IVSd (2D) 1.1 cm (0.6 - 1) LVPWd (2D) 1.1 cm (0.6 - 1) LVIDd (2D) 4.5 cm (3.6 - 5.4) LVIDs (2D) 3.6 cm - LV FS (2D) 20 % (25 - 45) Aortic Annulus 1.8 cm (1.4 - 2.6) Ao root diameter (2D) 3.3 cm (2.1 - 3.5) Ascending Ao 3.5 cm (2.1 - 3.4) Aortic arch 3.4 cm (1.8 - 3.4) LA dimension (AP) 2D 4.8 cm (2.3 - 3.8) LAd ISD 4CH 7.3 cm (2.9 - 5.3) LA ISD 4CH W 6.1 cm (2.5 - 4.5) Name Value Normal Range LA ESV SP 4CH (A/L) 154 ml - LA ESV SP 2CH (A/L) 134 ml - LA ESV BP (A/L) 151 ml - LA ESV BP (A/L) index 60 ml/m2 - LA ESV SP 4CH (MOD) 148 ml - LA ESV SP 2CH (MOD) 126 ml - Name Value Normal Range MV E-wave Vmax 1.04 m/sec - MV deceleration time 130.4 msec - MV A-wave Vmax 0.52 m/sec - MV E:A ratio 2 ratio - LV septal e' Vmax 0.07 m/sec - LV lateral e' Vmax 0.08 m/sec - LV E:e' septal ratio 14.29 ratio - LV E:e' lateral ratio 13 ratio - Name Value Normal Range AV Vmax 1.14 m/sec - AV VTI 22.69 cm - AV peak gradient 5.24 mmHg - AV mean gradient 2.96 mmHg - LVOT Vmax 0.85 m/sec - LVOT VTI 17.05 cm - LVOT peak gradient 2.91 mmHg - LVOT mean gradient 1.49 mmHg - JULIAN Vmax 0.8 m/sec - Name Value Normal Range TR Vmax 2.5 m/sec - TR peak gradient 25 mmHg - RAP 8 mmHg - RVSP 33 mmHg - IVC diameter 2.5 cm - Name Value Normal Range PV Vmax 0.86 m/sec - PV peak gradient 2.95 mmHg -
[2018-05-02] MEDS: traMADol TAB* 50 MG PO PRN (18:28)
[2018-05-02] MEDS: Nitroglycerin 2% OINT* 1 GM PAK TOPICAL SCH (18:29)
--- NOTE | 2018-05-02 20:23 | PN ---
Hospitalist Progress Note Date of Service: 05/02/18 ECHO evaluated, EF down to 35% from 60% last year, and patient not tolerating NC. Placed on her CPAP from home, NTG paste applied. No changes on telemetry. Requested respiratory to adjust mask for better seal. Call out to Dr. Gold, cardiology with see in AM. Will keep NPO after midnight in the case that additional cardiac diagnostics are ordered for tomorrow. Coordinated with primary RN.
[2018-05-02] MEDS: Magnesium Oxide TAB* 400 MG PO SCH (21:00)
[2018-05-02] MEDS: Gabapentin CAP(*) 400 MG PO SCH (22:00)
[2018-05-02] MEDS: Gabapentin CAP(*) 100 MG PO SCH (22:00)
[2018-05-03] MEDS: Acetaminophen TAB* 325 MG PO PRN ×2 (00:23→08:39)
[2018-05-03] MEDS: Levothyroxine TAB* 100 MCG TAB PO SCH (06:21)
[2018-05-03] MEDS: Nitroglycerin 2% OINT* 1 GM PAK TOPICAL SCH ×2 (06:21→13:03)
[2018-05-03] MEDS: Levothyroxine TAB* 75 MCG TAB PO SCH (06:21)
[2018-05-03] MEDS: Heparin VIAL(*) 5000 UNITS/ML VIAL (FIVE THOUSAND) SUBCUT SCH (06:22)
[2018-05-03 08:07] LABS: EGFR Non-African American 63.6 (>60)
[2018-05-03] MEDS: Aspirin EC TAB* 81 MG TAB.EC PO SCH (08:37)
[2018-05-03] MEDS: OXcarbazepine TAB(*) 300 MG PO SCH (08:38)
[2018-05-03] MEDS: Metoprolol Succinate XL TAB* 50 MG PO SCH (08:39)
[2018-05-03] MEDS: Losartan TAB* 25 MG PO SCH (08:39)
[2018-05-03] MEDS: Magnesium Oxide TAB* 400 MG PO SCH ×2 (08:40→20:11)
[2018-05-03] MEDS: Furosemide IV* 10 MG/ML VIAL (40 MG) IV SLOW PU SCH (08:40)
[2018-05-03] MEDS: Insulin LISPRO* 1 UNITS UNIT SUBCUT SCH ×4 (08:41→19:52)
[2018-05-03] MEDS ORDERED: NORETHINDRONE E ESTRADIOL IRON PO SCH (09:00)
[2018-05-03] MEDS ORDERED: Digoxin IV* 0.5 MG/2 ML AMP (0.25 MG/ML) IV SLOW PU ONE (09:21)
[2018-05-03] MEDS: DULoxetine DR CAP* 60 MG CAP.DR PO SCH (14:11)
[2018-05-03] MEDS: Enoxaparin(*) 150 MG/ML 1 ML SYRINGE SUBCUT SCH (14:11)
--- NOTE | 2018-05-03 15:17 | PN ---
Subjective Date of Service: 05/03/18 Interval History: HOSPITALIST PROGRESS NOTE Patient seen and examined at bedside. She feels a little better today, but with significant dyspnea with exertion, especially moving from bed to commode. Denies chest pain, but it feels "thight" . No palpitations despite HR in the 130s. Family History: Unchanged from Admission Social History: Unchanged from Admission Past Medical History: Unchanged from Admission Objective Active Medications: Acetaminophen (Tylenol Tab*) 650 mg PO Q4H PRN PRN Reason: PAIN Last Admin: 05/03/18 08:39 Dose: 650 mg Aspirin (Aspirin Ec Tab*) 81 mg PO DAILY [facility] Last Admin: 05/03/18 08:37 Dose: 81 mg Cyanocobalamin (Vitamin B12 Inj *) 1,000 mcg IM MONTHLY@0900 [facility] Dextrose (D50w Syringe 50 Ml*) 12.5 gm IV PUSH .FOR FS < 60 - SS PRN PRN Reason: FS < 60 Diphenoxylate HCl/Atropine (Lomotil Tab*) 2 tab PO QID PRN PRN Reason: DIARRHEA Duloxetine HCl (Cymbalta Cap*) 60 mg PO DAILY [facility] Last Admin: 05/03/18 14:11 Dose: 60 mg Enoxaparin Sodium (Lovenox(*)) 150 mg SUBCUT Q12H [facility] Last Admin: 05/03/18 14:11 Dose: 150 mg Furosemide (Lasix Iv*) 40 mg IV SLOW PU DAILY [facility] Last Admin: 05/03/18 08:40 Dose: 40 mg Gabapentin (Neurontin Cap(*)) 100 mg PO BEDTIME [facility] Last Admin: 05/02/18 22:00 Dose: 100 mg Gabapentin (Neurontin Cap(*)) 800 mg PO BEDTIME [facility] Last Admin: 05/02/18 22:00 Dose: 800 mg Insulin Human Lispro (Humalog*) 0 units SUBCUT ACHS [facility]; Protocol Last Admin: 05/03/18 12:22 Dose: 3 units Levothyroxine Sodium (Synthroid Tab*) 200 mcg PO DAILY@0600 [facility] Last Admin: 05/03/18 06:21 Dose: 200 mcg Levothyroxine Sodium (Synthroid Tab*) 75 mcg PO DAILY@0600 [facility] Last Admin: 05/03/18 06:21 Dose: 75 mcg Losartan Potassium (Cozaar Tab*) 25 mg PO DAILY [facility] Last Admin: 05/03/18 08:39 Dose: 25 mg Magnesium Oxide (Magox 400 Tab*) 800 mg PO BID [facility] Last Admin: 05/03/18 08:40 Dose: 800 mg Metoprolol Succinate (Toprol Xl Tab*) 50 mg PO DAILY [facility] Last Admin: 05/03/18 08:39 Dose: 50 mg Oxcarbazepine (Trileptal Tab(*)) 300 mg PO DAILY [facility] Last Admin: 05/03/18 08:38 Dose: 300 mg Tramadol HCl (Ultram*) 50 mg PO Q6H PRN PRN Reason: PAIN Last Admin: 05/02/18 18:28 Dose: 50 mg Vital Signs - 8 hr 05/03/18 05/03/18 05/03/18 07:30 07:56 10:28 Temperature 97.2 F Pulse Rate 87 94 Respiratory 20 20 Rate Blood Pressure 148/73 (mmHg) O2 Sat by Pulse 100 Oximetry 05/03/18 11:18 Temperature 98.1 F Pulse Rate 79 Respiratory 20 Rate Blood Pressure 134/68 (mmHg) O2 Sat by Pulse 100 Oximetry Oxygen Devices in Use Now: Simple Face Mask - 5 liters Appearance: Pleasant morbid obese lady sitting up in bed in [facility]. Eyes: No Scleral Icterus Ears/Nose/Mouth/Throat: Mucous Membranes Moist Neck: Trachea Midline Respiratory: Symmetrical Chest Expansion and Respiratory Effort, - - BS+ bilaterally, distant sounds due to body habitus, bibasilar crackles Cardiovascular: - - Normal S1 and S2, irregularly irregular Extremities: - - Bilateral LE pitting edema Neurological: Alert and Oriented x 3, NL Muscle Strength and Tone Result Diagrams: 05/02/18 15:35 05/03/18 07:44 Assess/Plan/Problems-Billing Assessment: Mrs Cevallos is a 53yo F with PMH of Crohn's disease, type 2 DM, HTN, super morbid obesity with BMI 62, SHAIN, RLE DVT, who presented to ED with c/o progressive edema and dyspnea, found to have CHF exacerbation. - Patient Problems (1) Acute hypoxemic respiratory failure Comment: - Secondary to acute systolic CHF. - Continue supplemental O2. (2) Acute systolic (congestive) heart failure Comment: - Newly depressed EF down from 55-60% in June 2017 to 35-40% now. - Continue diuresis, monitor I/Os, daily weights. - Will place Guthrie catheter for comfort. - Awaiting Cardiology consult. (3) Atrial fibrillation with RVR Comment: - Was in Afib RVR earlier today, but unaware. Received one dose of digoxin earlier today and now back in sinus. - Suspect atrial fibrillation is likely playing a role on her newly depressed EF /CHF exacerbation. - [id number] is 4 - will start Lovenox for now while we wait for Cardiology input. (4) HTN (hypertension) Comment: - Continue Losartan and Metoprolol. (5) Type 2 diabetes mellitus Comment: - Metformin on hold. - Continue Lispro SS. - Refer to [facility]. (6) Crohn disease Comment: - No evidence of flare at this time, not on any maintenance meds. (7) Hypothyroidism Comment: - Check TSH and continue Levothyroxine. (8) SHANI (obstructive sleep apnea) Comment: - Continue CPAP. (9) DVT prophylaxis Comment: - Lovenox. (10) Full code status Status and Disposition: Inpatient.
[2018-05-03] MEDS ORDERED: Magnesium Sulfate 2 GM IV* 2 GM/50 ML BAG IVPB ONE (15:34)
[2018-05-03] MEDS: Sotalol TAB* 80 MG PO SCH (17:06)
[2018-05-03] MEDS: traMADol TAB* 50 MG PO PRN (19:35)
[2018-05-03] MEDS: Gabapentin CAP(*) 400 MG PO SCH (19:36)
[2018-05-03] MEDS: Gabapentin CAP(*) 100 MG PO SCH (19:36)
--- NOTE | 2018-05-04 00:01 | CONS ---
CC: Dr. Prince in the Hospitalist Service CONSULTATION REPORT: DATE OF CONSULT: 05/03/18 REASON FOR CONSULT: Atrial fibrillation, depressed ejection fraction, and congestive heart failure. CHIEF COMPLAINT: Shortness of breath. HISTORY OF PRESENT ILLNESS: Carrie was examined in presence of her . She states that the morning she was admitted she awoke about 4 in the morning very short of breath and panicky and she and her thought she might have had a panic attack. Her went to work as usual and she went back to sleep, but then around 7 in the morning was extremely short of breath and called her and told him to call the ambulance. The patient arrived tachypneic, tachycardic, and hypertensive. She was quite hypoxic requiring high levels of oxygen. On admission, she was in sinus rhythm and hypertensive and has been treated with diuretics. While in the hospital, she went into AFib/ flutter, which she was completely unaware and echocardiogram revealed an ejection fraction of 30% to 35%, which is new from past echo done in 2017 at [facility]. PAST MEDICAL HISTORY: The patient has a past medical history of: 1. Crohn's disease. 2. Obstructive sleep apnea, on BiPAP. 3. DVT in right lower extremity. 4. Paroxysmal atrial fibrillation (2017 at [facility]). 5. Diabetes type 2. 6. Hypertension. 7. Degenerative arthritis, status post knee replacement. 8. Hypothyroid disease. 9. Chronic anemia. 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 Uterine Cancer PAST SURGICAL HISTORY: Includes: 1. Multiple colon resections. 2. Right knee replacement 10 years ago. 3. Appendectomy in 1975. 4. Tonsillectomy in 1964. 5. Laminectomy distantly. MEDICATIONS: Current inpatient medications include: 1. Tylenol p.r.n. 2. Aspirin 81 mg a day. 3. Vitamin B12 injections monthly. 4. Lomotil p.r.n. 5. Cymbalta 60 mg a day. 6. Lovenox 150 mg q.12 hours. 7. Lasix 40 mg IV push q. day. 8. Neurontin 900 mg q.h.s. 9. Humalog lispro insulin. 10. Synthroid 200 mcg a day. 11. Cozaar 25 mg a day. 12. Magnesium oxide 800 mg b.i.d. 13. Toprol-XL 50 mg a day. 14. Trileptal 300 mg a day. 15. Ultram p.r.n. pain. She was taking control pills (norethindrone-e.estradiol-iron (Microgestin Fe) 1.5/50 mg). ALLERGIES: Medication allergies and intolerances include MORPHINE (rash) and SULFA (rash). FAMILY HISTORY: Significant that her father had a heart attack when he was in his 50s when the patient was at age 17. Her mother had a history of multiple sclerosis and of aspiration pneumonia. SOCIAL HISTORY: The patient has never smoked. No history of alcohol abuse. She is disabled with a supportive . REVIEW OF SYSTEMS: Significant and that she was using more pillows to sleep at night for what she felt were allergies. This goes back about 3 weeks or so. She had 4 days of progressive swelling, it is included legs, but also abdomen, and this is temporarily correlated with her prednisone use for Crohn's flare up. The patient has had approximately 10 or more day history of flare up of her Crohn's with abdominal cramping, for which she has taken Lomotil and steroids, but she was unsure of the dose. The patient's diet in the recent past has included baked beans and hot dogs. The patient denies fevers, chills, sweats. She has had some diarrhea with the Crohn's flare up. She denies hematuria or dysuria. She denies swelling of the legs. She denies palpitations or racing of the heart. All other 14 point review of systems was negative. PHYSICAL EXAM: On exam, the patient is 5 feet 4 inches, weighs 361 pounds with a BMI of 62. Vital signs on arrival to the emergency room, the patient's blood pressure was 179/113 with a pulse of 94, respiratory rate 20, oxygen saturation 96% with oxygen replacement. She has been afebrile. Vital signs at the time of the exam, blood pressure 154/80, pulse was 71 and regular, temperature 97.9, and oxygen saturation of 100% on nasal cannula. General Appearance: Short, morbidly obese woman seated in bed, oxygen on, but able to talk comfortably. Psychologically, pleasant and cooperative. Neurologically, awake, alert, and oriented to person, place, and time. Cranial nerves II through XII were grossly intact, although suboptimal exam neurologically, but the speech is articulate, comprehension is good, and she follows commands well. HEENT: Pupils were equal and round. Mucous membranes moist. Neck: Thick from obesity , but no thyromegaly or increased JVP appreciated. Breath sounds distant from obesity, diminished in the right base and all other lung allen were clear. Coronary: S1, S2, regular, distant without murmurs or rubs. PMI not able to be palpated. Abdomen: Very overweight. No epigastric discomfort. Unable to evaluate for hepatomegaly. Lower extremities are free of edema and warm. DIAGNOSTIC STUDIES/LAB DATA: Studies: EKG on arrival to the emergency room on 05/02/18, showed normal sinus rhythm, 81 beats a minute, QRS axis of 0, normal AV and IV conduction times, and normal ST segments. EKG this morning at 8:28 shows atrial fibrillation course versus atrial flutter with a ventricular rate of 125 beats a minute, variable block, QRS axis -30, normal air ventricular conduction times and nonspecific ST changes. Labs: White count 11.8, hemoglobin 10, hematocrit 31, platelets 243. INR 0.95 , PTT 26.4. Sodium 135, potassium 4.3, chloride 97, bicarb 26, BUN 15, creatinine 0.92, glucose 167, magnesium 1.8, troponin #1 of 0.01, troponin #2 of 0.02, TSH elevated at 12.57. Echocardiogram from 05/02/18 shows mild left ventricular hypertrophy with an ejection fraction of 35% to 40%. There was moderate dilatation of the right ventricle and [id number] decrease in RV systolic function. Trace aortic insufficiency, mild mitral and mild tricuspid insufficiency and PA pressure estimated at 33 mmHg. Echocardiogram from 06/20/17, showed an ejection fraction of 55% to 60%. CT angiogram of the thorax from 05/02/18 was negative for pulmonary emboli, showed bilateral infiltrates, atelectasis versus pneumonitis, and small-to- moderate bilateral pleural effusions. Chest x-ray from 05/02/18, consistent with congestive heart failure with a differential of pneumonia. IMPRESSION AND PLAN: In summary, Carrie Cevallos is a 53-year-old woman admitted with congestive heart failure and a cardiomyopathy in the [id number] range, that is new compared with 2017. This was in the setting of asymptomatic paroxysmal atrial fibrillation/flutter as well as recent Crohn's flare up requiring additional steroids, obstructive sleep apnea, and morbid obesity. For the cardiomyopathy, I agree with the addition of Toprol-XL as well as Cozaar and I agree with aggressive diuresis for symptomatic improvement. Ideally, we would eventually get her on spironolactone, however looking at old lab, she has had a history of hyponatremia, so I think we will hold off for now and if this is done, we will have to proceed cautiously. I am going to try her on low dose sotalol, her corrected QT is a bit high, so we will have to monitor her QT interval carefully. I agree with the electrolyte replacement in progress and I deemed to get the magnesium above 2 and keep potassium levels between 4 and 5. The TSH is elevated, and if her thyroid replacement is increased, I would do so cautiously and slowly. The etiology of the patient's cardiomyopathy could easily be due to asymptomatic paroxysmal atrial fibrillation/flutter, but she is at significant risk for coronary artery disease with her own atherosclerotic risk in addition to her family history of early atherosclerotic heart disease. Because of Carrie's body mass index, getting an accurate chemical stress test will be very difficult. At the same time, I hate to put her through an invasive catheterization unless this is absolutely necessary. As her troponins are negative, I do not feel it is urgent to get in a stress test or cath, and I do not think she tolerates either until we get her fluid status improved. Additional differential could include, among others, chemo, but I doubt as her EF was normal a year ago and the chemo was distant. I would like to treat her medically as above, consider a 2-day nuclear chemical stress as I do not feel she will be able to walk well or adequately to get her heart rate up, understanding the high-risk of a falsely positive or falsely negative study, or alternatively if her images are adequate, we could consider dobutamine stress echo, but this could increase her risk of recurrent atrial fibrillation/flutter significantly. I do not think she is a candidate for a CT angiogram due to her girth and it would be difficult to get optimal imaging of her coronaries. Additional recommendations will be made pending her response to sotalol, addition of medications for congestive heart failure and additional diuresis. Even though the patient is 53, with her history of congestive heart failure, hypertension, and diabetes, her CHADS score is now 3, and I would recommend chronic anticoagulation unless contraindicated due to her Crohn's or other comorbidities including chronic anemia. Thank you for allowing me to assist with this nice, but complex woman's care. [id number]/[facility] #: [id number] DACIA
[2018-05-04] MEDS: Acetaminophen TAB* 325 MG PO PRN ×2 (02:19→11:45)
[2018-05-04] MEDS: Enoxaparin(*) 150 MG/ML 1 ML SYRINGE SUBCUT SCH ×2 (06:10→13:07)
[2018-05-04] MEDS: Levothyroxine TAB* 75 MCG TAB PO SCH (06:11)
[2018-05-04] MEDS: Levothyroxine TAB* 100 MCG TAB PO SCH (06:11)
[2018-05-04 06:23] LABS: ABS Basophils 0 10^3/ul (0-0.2); ABS Eosinophils 0.5 10^3/ul (0-0.6); ABS Lymphocytes 2.5 10^3/ul (1.0-4.8); ABS Monocytes 0.4 10^3/ul (0-0.8); ABS Neutrophils 5.5 10^3/ul (1.5-7.7); ABS Nucleated RBC 0 10^3/ul; Hematocrit 30 % (35-47); Hemoglobin 10.2 g/dl (12.0-16.0); Lymphocyte % 27.6 % (25-47); Mean Corpuscular HGB Conc 34 g/dl (31-36); Mean Corpuscular Hemoglobin 31 pg (27-31); Mean Corpuscular Volume 92 fL (80-97); Mean Platelet Volume 7.9 um3 (7.4-10.4); Nucleated Red Blood Cells % 0; Platelet Count 306 10^3/ul (150-450); Red Blood Count 3.26 10^6/ul (4.00-5.40); Red Cell Distribution Width 15 % (10.5-15); White Blood Count 8.9 10^3/ul (3.5-10.8)
[2018-05-04 06:40] LABS: EGFR Non-African American 54.6 (>60)
[2018-05-04] MEDS: Aspirin EC TAB* 81 MG TAB.EC PO SCH (08:55)
[2018-05-04] MEDS: Magnesium Oxide TAB* 400 MG PO SCH ×2 (08:55→20:47)
[2018-05-04] MEDS: Metoprolol Succinate XL TAB* 50 MG PO SCH (08:55)
[2018-05-04] MEDS: Losartan TAB* 25 MG PO SCH (08:55)
[2018-05-04] MEDS: DULoxetine DR CAP* 60 MG CAP.DR PO SCH (08:55)
[2018-05-04] MEDS: OXcarbazepine TAB(*) 300 MG PO SCH (08:55)
[2018-05-04] MEDS: Sotalol TAB* 80 MG PO SCH ×2 (08:56→20:46)
[2018-05-04] MEDS: Furosemide IV* 10 MG/ML VIAL (40 MG) IV SLOW PU SCH (08:56)
[2018-05-04] MEDS: Insulin LISPRO* 1 UNITS UNIT SUBCUT SCH ×3 (09:08→17:45)
--- NOTE | 2018-05-04 09:16 | PN ---
Subjective Date of Service: 05/04/18 Interval History: f/u CHF, AFib Patient feel much better, no dyspnea at rest No chest discomfort or palpitations tele NSR. QTc this am 470 Medications Active Medications: Acetaminophen (Tylenol Tab*) 650 mg PO Q4H PRN PRN Reason: PAIN Last Admin: 05/04/18 02:19 Dose: 650 mg Aspirin (Aspirin Ec Tab*) 81 mg PO DAILY [facility] Last Admin: 05/04/18 08:55 Dose: 81 mg Cyanocobalamin (Vitamin B12 Inj *) 1,000 mcg IM MONTHLY@0900 [facility] Dextrose (D50w Syringe 50 Ml*) 12.5 gm IV PUSH .FOR FS < 60 - SS PRN PRN Reason: FS < 60 Diphenoxylate HCl/Atropine (Lomotil Tab*) 2 tab PO QID PRN PRN Reason: DIARRHEA Duloxetine HCl (Cymbalta Cap*) 60 mg PO DAILY [facility] Last Admin: 05/04/18 08:55 Dose: 60 mg Enoxaparin Sodium (Lovenox(*)) 150 mg SUBCUT Q12H [facility] Last Admin: 05/04/18 06:10 Dose: 150 mg Furosemide (Lasix Iv*) 40 mg IV SLOW PU DAILY [facility] Last Admin: 05/04/18 08:56 Dose: 40 mg Gabapentin (Neurontin Cap(*)) 100 mg PO BEDTIME [facility] Last Admin: 05/03/18 19:36 Dose: 100 mg Gabapentin (Neurontin Cap(*)) 800 mg PO BEDTIME [facility] Last Admin: 05/03/18 19:36 Dose: 800 mg Insulin Human Lispro (Humalog*) [address] [facility]; Protocol Last Admin: 05/04/18 09:08 Dose: 2 units Levothyroxine Sodium (Synthroid Tab*) 200 mcg PO DAILY@0600 [facility] Last Admin: 05/04/18 06:11 Dose: 200 mcg Levothyroxine Sodium (Synthroid Tab*) 75 mcg PO DAILY@0600 [facility] Last Admin: 05/04/18 06:11 Dose: 75 mcg Losartan Potassium (Cozaar Tab*) 25 mg PO DAILY [facility] Last Admin: 05/04/18 08:55 Dose: 25 mg Magnesium Oxide (Magox 400 Tab*) 800 mg PO BID [facility] Last Admin: 05/04/18 08:55 Dose: 800 mg Metoprolol Succinate (Toprol Xl Tab*) 50 mg PO DAILY [facility] Last Admin: 05/04/18 08:55 Dose: 50 mg Oxcarbazepine (Trileptal Tab(*)) 300 mg PO DAILY [facility] Last Admin: 05/04/18 08:55 Dose: 300 mg Sotalol HCl (Betapace Tab*) 40 mg PO BID [facility] Last Admin: 05/04/18 08:56 Dose: 40 mg Tramadol HCl (Ultram*) 50 mg PO Q6H PRN PRN Reason: PAIN Last Admin: 05/03/18 19:35 Dose: 50 mg Objective Vital Signs: Temp Pulse Resp BP Pulse Ox 97.2 F 60 18 148/80 96 05/04/18 07:45 05/04/18 07:45 05/04/18 05:49 05/04/18 07:45 05/04/18 07:45 Oxygen Devices in Use Now: Simple Face Mask - 5 liters Appearance: nad, obese Ears/Nose/Mouth/Throat: Clear Oropharnyx Neck: - - uncertain jvp Respiratory: Symmetrical Chest Expansion and Respiratory Effort, - - distant Cardiovascular: RRR, - - distant Abdominal: NL Sounds; No Tenderness; No Distention Extremities: No Clubbing, Cyanosis, - - obese mixed with edema Neurological: Alert and Oriented x 3 Laboratory Results: 05/04/18 06:01 05/04/18 06:01 INR (Anticoag Therapy) 0.95 (0.77-1.02) 05/02/18 15:35 APTT 26.4 seconds (26.0-36.3) 05/02/18 15:35 Total Bilirubin 0.50 mg/dL (0.2-1.0) 05/02/18 09:48 AST 10 U/L (13-39) L 05/02/18 09:48 ALT 11 U/L (7-52) 05/02/18 09:48 Alkaline Phosphatase 67 U/L (34-104) 05/02/18 09:48 B-Natriuretic Peptide 270 pg/mL (-100) H 05/02/18 09:48 Total Protein 6.7 g/dL (6.4-8.9) 05/02/18 09:48 Albumin 3.6 g/dL (3.2-5.2) 05/02/18 09:48 Globulin 3.1 g/dL (2-4) 05/02/18 09:48 Albumin/Globulin Ratio 1.2 (1-3) 05/02/18 09:48 TSH 12.57 mcIU/mL (0.34-5.60) H 05/03/18 07:44 05/02/18 05/03/18 05/03/18 09:48 07:44 10:27 Troponin I 0.03 0.01 0.02 admission magnesium 1.8 Assessment/Plan 53 year old woman with history of morbid obesity, sleep disordered breathing, HTN, known pafib admitted with new onset systolic HF LVEF 35-40%, has Pafib/ flutter on monitor, ruled out for ACS, responding to diuresis Continue current orders with exception: d/c aspirin (ordered) since AC started Start aldactone 25 mg po daily (ordered). Prior hyponatremia and demeclocycline use noted. Follow BMP and Mg and replace as needed Daily EKG while on sotalol (ordered) Thank you for allowing me to participate in the cardiovascular care of this patient. Please do not hesitate to contact me with questions or concerns.
[2018-05-04] MEDS: Spironolactone TAB* 25 MG PO SCH (11:42)
[2018-05-04] MEDS: traMADol TAB* 50 MG PO PRN ×2 (14:55→20:48)
--- NOTE | 2018-05-04 15:22 | PN ---
Subjective Date of Service: 05/04/18 Interval History: HOSPITALIST PROGRESS NOTE Patient seen and examined at bedside. Care reviewed and d/w Brittney Smallwood RN. She feels better today, breathing is close to baseline, edema has subsided. Denies chest pain or pressure, nor palpitations. Family History: Unchanged from Admission Social History: Unchanged from Admission Past Medical History: Unchanged from Admission Objective Active Medications: Acetaminophen (Tylenol Tab*) 650 mg PO Q4H PRN PRN Reason: PAIN Last Admin: 05/04/18 11:45 Dose: 650 mg Cyanocobalamin (Vitamin B12 Inj *) 1,000 mcg IM MONTHLY@0900 [facility] Dextrose (D50w Syringe 50 Ml*) 12.5 gm IV PUSH .FOR FS < 60 - SS PRN PRN Reason: FS < 60 Diphenoxylate HCl/Atropine (Lomotil Tab*) 2 tab PO QID PRN PRN Reason: DIARRHEA Duloxetine HCl (Cymbalta Cap*) 60 mg PO DAILY [facility] Last Admin: 05/04/18 08:55 Dose: 60 mg Enoxaparin Sodium (Lovenox(*)) 150 mg SUBCUT Q12H [facility] Last Admin: 05/04/18 13:07 Dose: 150 mg Furosemide (Lasix Iv*) 40 mg IV SLOW PU DAILY [facility] Last Admin: 05/04/18 08:56 Dose: 40 mg Gabapentin (Neurontin Cap(*)) 100 mg PO BEDTIME [facility] Last Admin: 05/03/18 19:36 Dose: 100 mg Gabapentin (Neurontin Cap(*)) 800 mg PO BEDTIME [facility] Last Admin: 05/03/18 19:36 Dose: 800 mg Insulin Human Lispro (Humalog*) 0 units SUBCUT ACHS [facility]; Protocol Last Admin: 05/04/18 11:56 Dose: 6 units Levothyroxine Sodium (Synthroid Tab*) 200 mcg PO DAILY@0600 [facility] Last Admin: 05/04/18 06:11 Dose: 200 mcg Levothyroxine Sodium (Synthroid Tab*) 75 mcg PO DAILY@0600 [facility] Last Admin: 05/04/18 06:11 Dose: 75 mcg Losartan Potassium (Cozaar Tab*) 25 mg PO DAILY [facility] Last Admin: 05/04/18 08:55 Dose: 25 mg Magnesium Oxide (Magox 400 Tab*) 800 mg PO BID [facility] Last Admin: 05/04/18 08:55 Dose: 800 mg Metoprolol Succinate (Toprol Xl Tab*) 50 mg PO DAILY [facility] Last Admin: 05/04/18 08:55 Dose: 50 mg Oxcarbazepine (Trileptal Tab(*)) 300 mg PO DAILY [facility] Last Admin: 05/04/18 08:55 Dose: 300 mg Sotalol HCl (Betapace Tab*) 40 mg PO BID [facility] Last Admin: 05/04/18 08:56 Dose: 40 mg Spironolactone (Aldactone Tab*) 25 mg PO DAILY [facility] Last Admin: 05/04/18 11:42 Dose: 25 mg Tramadol HCl (Ultram*) 50 mg PO Q6H PRN PRN Reason: PAIN Last Admin: 05/04/18 14:55 Dose: 50 mg Vital Signs - 8 hr 05/04/18 05/04/18 05/04/18 07:45 08:00 11:15 Temperature 97.2 F Pulse Rate 60 Respiratory 18 18 Rate Blood Pressure 148/80 (mmHg) O2 Sat by Pulse 96 Oximetry 05/04/18 05/04/18 11:43 14:55 Temperature 97.2 F Pulse Rate 60 Respiratory 18 Rate Blood Pressure 145/83 (mmHg) O2 Sat by Pulse 98 Oximetry Oxygen Devices in Use Now: Simple Face Mask - 4 liters Appearance: Pleasant morbid obese lady sitting up in bed in [facility]. Eyes: No Scleral Icterus Ears/Nose/Mouth/Throat: Mucous Membranes Moist Neck: Trachea Midline Respiratory: Symmetrical Chest Expansion and Respiratory Effort, - - BS+ bilaterally with bibasilar crackles Cardiovascular: RRR - Normal S1 and S2 Neurological: Alert and Oriented x 3, NL Muscle Strength and Tone Result Diagrams: 05/04/18 06:01 05/04/18 06:01 Assess/Plan/Problems-Billing Assessment: Mrs Cevallos is a 53yo F with PMH of Crohn's disease, type 2 DM, HTN, super morbid obesity with BMI 62, SHANI, RLE DVT, who presented to ED with c/o progressive edema and dyspnea, found to have CHF exacerbation. - Patient Problems (1) Acute hypoxemic respiratory failure Comment: - Secondary to acute systolic CHF. - Continue supplemental O2. (2) Acute systolic (congestive) heart failure Comment: - Newly depressed EF down from 55-60% in June 2017 to 35-40% now, may be secondary to paroxysmal afib. - Continue diuresis, monitor I/Os, daily weights. - Cardiology consult appreciated. - Aldactone added. (3) Atrial fibrillation with RVR Comment: - Was in Afib RVR yesterday, but unaware - now back in NSR. - Suspect atrial fibrillation is likely playing a role on her newly depressed EF /CHF exacerbation. - [id number] is 4 - continue Lovenox for now, will probably switch to Apixaban if no invasive procedures required. - Continue Sotalol and monitor QT. (4) HTN (hypertension) Comment: - Continue Losartan and Metoprolol. (5) Type 2 diabetes mellitus Comment: - Metformin on hold. - Continue Lispro SS. - Refer to [facility]. (6) Crohn disease Comment: - No evidence of flare at this time, not on any maintenance meds. (7) Hypothyroidism Comment: - TSH elevated - suspect sick euthyroid. - Continue Levothyroxine. (8) SHANI (obstructive sleep apnea) Comment: - Continue CPAP. (9) DVT prophylaxis Comment: - Lovenox. (10) Full code status Status and Disposition: Inpatient.
[2018-05-04] MEDS: Gabapentin CAP(*) 100 MG PO SCH (20:47)
[2018-05-04] MEDS: Gabapentin CAP(*) 400 MG PO SCH (20:48)
[2018-05-05] MEDS: Acetaminophen TAB* 325 MG PO PRN (02:49)
[2018-05-05] MEDS: Enoxaparin(*) 150 MG/ML 1 ML SYRINGE SUBCUT SCH ×2 (03:18→14:59)
[2018-05-05 05:46] LABS: EGFR Non-African American 57.8 (>60)
[2018-05-05] MEDS: Levothyroxine TAB* 75 MCG TAB PO SCH (06:17)
[2018-05-05] MEDS: Insulin LISPRO* 1 UNITS UNIT SUBCUT SCH ×5 (06:17→22:10)
[2018-05-05] MEDS: Levothyroxine TAB* 100 MCG TAB PO SCH (06:17)
[2018-05-05] MEDS: Sotalol TAB* 80 MG PO SCH ×2 (08:47→20:51)
[2018-05-05] MEDS: Metoprolol Succinate XL TAB* 50 MG PO SCH (08:47)
[2018-05-05] MEDS: Losartan TAB* 25 MG PO SCH (08:47)
[2018-05-05] MEDS: DULoxetine DR CAP* 60 MG CAP.DR PO SCH (08:47)
[2018-05-05] MEDS: Spironolactone TAB* 25 MG PO SCH (08:47)
[2018-05-05] MEDS: OXcarbazepine TAB(*) 300 MG PO SCH (08:47)
[2018-05-05] MEDS: Magnesium Oxide TAB* 400 MG PO SCH ×2 (08:47→20:50)
[2018-05-05] MEDS: Furosemide IV* 10 MG/ML VIAL (40 MG) IV SLOW PU SCH (08:48)
--- NOTE | 2018-05-05 10:50 | PN ---
Subjective Date of Service: 05/05/18 Interval History: f/u CHF, AFib Patient continues to improve May have salcido out and ambulate later today No chest discomfort or palpitations tele NSR. QTc this am 452 Medications Active Medications: Acetaminophen (Tylenol Tab*) 650 mg PO Q4H PRN PRN Reason: PAIN Last Admin: 05/05/18 02:49 Dose: 650 mg Cyanocobalamin (Vitamin B12 Inj *) 1,000 mcg IM MONTHLY@0900 [facility] Dextrose (D50w Syringe 50 Ml*) 12.5 gm IV PUSH .FOR FS < 60 - SS PRN PRN Reason: FS < 60 Diphenoxylate HCl/Atropine (Lomotil Tab*) 2 tab PO QID PRN PRN Reason: DIARRHEA Duloxetine HCl (Cymbalta Cap*) 60 mg PO DAILY [facility] Last Admin: 05/05/18 08:47 Dose: 60 mg Enoxaparin Sodium (Lovenox(*)) 150 mg SUBCUT Q12H [facility] Last Admin: 05/05/18 03:18 Dose: 150 mg Furosemide (Lasix Iv*) 40 mg IV SLOW PU DAILY [facility] Last Admin: 05/05/18 08:48 Dose: 40 mg Gabapentin (Neurontin Cap(*)) 100 mg PO BEDTIME [facility] Last Admin: 05/04/18 20:47 Dose: 100 mg Gabapentin (Neurontin Cap(*)) 800 mg PO BEDTIME [facility] Last Admin: 05/04/18 20:48 Dose: 800 mg Insulin Human Lispro (Humalog*) 0 units SUBCUT [facility]; Protocol Last Admin: 05/05/18 08:48 Dose: 2 units Levothyroxine Sodium (Synthroid Tab*) 200 mcg PO DAILY@0600 [facility] Last Admin: 05/05/18 06:17 Dose: 200 mcg Levothyroxine Sodium (Synthroid Tab*) 75 mcg PO DAILY@0600 [facility] Last Admin: 05/05/18 06:17 Dose: 75 mcg Losartan Potassium (Cozaar Tab*) 25 mg PO DAILY [facility] Last Admin: 05/05/18 08:47 Dose: 25 mg Magnesium Oxide (Magox 400 Tab*) 800 mg PO BID [facility] Last Admin: 05/05/18 08:47 Dose: 800 mg Metoprolol Succinate (Toprol Xl Tab*) 50 mg PO DAILY [facility] Last Admin: 05/05/18 08:47 Dose: 50 mg Oxcarbazepine (Trileptal Tab(*)) 300 mg PO DAILY [facility] Last Admin: 05/05/18 08:47 Dose: 300 mg Sotalol HCl (Betapace Tab*) 40 mg PO BID [facility] Last Admin: 05/05/18 08:47 Dose: 40 mg Spironolactone (Aldactone Tab*) 25 mg PO DAILY [facility] Last Admin: 05/05/18 08:47 Dose: 25 mg Tramadol HCl (Ultram*) 50 mg PO Q6H PRN PRN Reason: PAIN Last Admin: 05/04/18 20:48 Dose: 50 mg Objective Vital Signs: Temp Pulse Resp BP Pulse Ox 97.7 F 65 20 151/73 97 05/05/18 07:22 05/05/18 07:22 05/05/18 08:00 05/05/18 07:22 05/05/18 07:22 Oxygen Devices in Use Now: Simple Face Mask - 4 liters Appearance: nad, obese Ears/Nose/Mouth/Throat: Clear Oropharnyx Neck: - - uncertain jvp Respiratory: Symmetrical Chest Expansion and Respiratory Effort, - - distant Cardiovascular: RRR, - - distant Abdominal: NL Sounds; No Tenderness; No Distention, - - obese Extremities: No Clubbing, Cyanosis, - - obese mixed with edema Neurological: Alert and Oriented x 3 Laboratory Results: 05/04/18 06:01 05/05/18 05:14 INR (Anticoag Therapy) 0.95 (0.77-1.02) 05/02/18 15:35 APTT 26.4 seconds (26.0-36.3) 05/02/18 15:35 Total Bilirubin 0.50 mg/dL (0.2-1.0) 05/02/18 09:48 AST 10 U/L (13-39) L 05/02/18 09:48 ALT 11 U/L (7-52) 05/02/18 09:48 Alkaline Phosphatase 67 U/L (34-104) 05/02/18 09:48 B-Natriuretic Peptide 270 pg/mL (-100) H 05/02/18 09:48 Total Protein 6.7 g/dL (6.4-8.9) 05/02/18 09:48 Albumin 3.6 g/dL (3.2-5.2) 05/02/18 09:48 Globulin 3.1 g/dL (2-4) 05/02/18 09:48 Albumin/Globulin Ratio 1.2 (1-3) 05/02/18 09:48 TSH 12.57 mcIU/mL (0.34-5.60) H 05/03/18 07:44 05/02/18 05/03/18 05/03/18 09:48 07:44 10:27 Troponin I 0.03 0.01 0.02 Assessment/Plan 53 year old woman with history of morbid obesity, sleep disordered breathing, HTN, known pafib admitted with new onset systolic HF LVEF 35-40%, has Pafib/ flutter on monitor, ruled out for ACS, responding to diuresis Continue current cardiac medications Eliquis 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 Please do not hesitate to contact me with questions or concerns.
--- NOTE | 2018-05-05 11:32 | PN ---
Subjective Date of Service: 05/05/18 Interval History: HOSPITALIST PROGRESS NOTE Patient seen and examined at bedside. Care reviewed and d/w Nita Johns RN. She feels better today. Breathing is easier on RA, denies CP or pressure. Request to have Guthrie removed. Family History: Unchanged from Admission Social History: Unchanged from Admission Past Medical History: Unchanged from Admission Objective Active Medications: Acetaminophen (Tylenol Tab*) 650 mg PO Q4H PRN PRN Reason: PAIN Last Admin: 05/05/18 02:49 Dose: 650 mg Cyanocobalamin (Vitamin B12 Inj *) 1,000 mcg IM MONTHLY@0900 [facility] Dextrose (D50w Syringe 50 Ml*) 12.5 gm IV PUSH .FOR FS < 60 - SS PRN PRN Reason: FS < 60 Diphenoxylate HCl/Atropine (Lomotil Tab*) 2 tab PO QID PRN PRN Reason: DIARRHEA Last Admin: 05/05/18 10:52 Dose: 2 tab Duloxetine HCl (Cymbalta Cap*) 60 mg PO DAILY [facility] Last Admin: 05/05/18 08:47 Dose: 60 mg Enoxaparin Sodium (Lovenox(*)) 150 mg SUBCUT Q12H [facility] Last Admin: 05/05/18 03:18 Dose: 150 mg Gabapentin (Neurontin Cap(*)) 100 mg PO BEDTIME [facility] Last Admin: 05/04/18 20:47 Dose: 100 mg Gabapentin (Neurontin Cap(*)) 800 mg PO BEDTIME [facility] Last Admin: 05/04/18 20:48 Dose: 800 mg Insulin Human Lispro (Humalog*) 0 units SUBCUT [facility]; Protocol Last Admin: 05/05/18 08:48 Dose: 2 units Levothyroxine Sodium (Synthroid Tab*) 200 mcg PO DAILY@0600 [facility] Last Admin: 05/05/18 06:17 Dose: 200 mcg Levothyroxine Sodium (Synthroid Tab*) 75 mcg PO DAILY@0600 [facility] Last Admin: 05/05/18 06:17 Dose: 75 mcg Losartan Potassium (Cozaar Tab*) 25 mg PO DAILY [facility] Last Admin: 05/05/18 08:47 Dose: 25 mg Magnesium Oxide (Magox 400 Tab*) 800 mg PO BID [facility] Last Admin: 05/05/18 08:47 Dose: 800 mg Metoprolol Succinate (Toprol Xl Tab*) 50 mg PO DAILY [facility] Last Admin: 05/05/18 08:47 Dose: 50 mg Oxcarbazepine (Trileptal Tab(*)) 300 mg PO DAILY [facility] Last Admin: 05/05/18 08:47 Dose: 300 mg Sotalol HCl (Betapace Tab*) 40 mg PO BID [facility] Last Admin: 05/05/18 08:47 Dose: 40 mg Spironolactone (Aldactone Tab*) 25 mg PO DAILY [facility] Last Admin: 05/05/18 08:47 Dose: 25 mg Tramadol HCl (Ultram*) 50 mg PO Q6H PRN PRN Reason: PAIN Last Admin: 05/04/18 20:48 Dose: 50 mg Vital Signs - 8 hr 05/05/18 05/05/18 05/05/18 03:53 05:15 05:16 Temperature 98.5 F Pulse Rate 60 Respiratory 18 18 17 Rate Blood Pressure 150/80 (mmHg) O2 Sat by Pulse 100 Oximetry 05/05/18 05/05/18 05/05/18 05:17 07:22 08:00 Temperature 97.7 F Pulse Rate 65 Respiratory 17 18 20 Rate Blood Pressure 151/73 (mmHg) O2 Sat by Pulse 97 Oximetry Oxygen Devices in Use Now: None Appearance: Pleasant morbid obese lady sitting up in bed in [facility]. Eyes: No Scleral Icterus Ears/Nose/Mouth/Throat: Mucous Membranes Moist Neck: Trachea Midline Respiratory: Symmetrical Chest Expansion and Respiratory Effort, - - BS+ bilaterally, minimal crackles right base only Cardiovascular: RRR - Normal S1 and S2 Neurological: Alert and Oriented x 3, NL Muscle Strength and Tone Result Diagrams: 05/04/18 06:01 05/05/18 05:14 Assess/Plan/Problems-Billing Assessment: Mrs Cevallos is a 53yo F with PMH of Crohn's disease, type 2 DM, HTN, super morbid obesity with BMI 62, SHANI, RLE DVT, who presented to ED with c/o progressive edema and dyspnea, found to have CHF exacerbation. - Patient Problems (1) Acute hypoxemic respiratory failure Comment: - Secondary to acute systolic CHF. - Resolved. (2) Acute systolic (congestive) heart failure Comment: - Newly depressed EF down from 55-60% in June 2017 to 35-40% now, may be secondary to paroxysmal afib. - Continue diuresis, monitor I/Os, daily weights. - Cardiology f/u appreciated. - Continue Furosemide and Aldactone. (3) Atrial fibrillation with RVR Comment: - Was in Afib RVR yesterday, but unaware - now back in NSR. - Suspect atrial fibrillation is likely playing a role on her newly depressed EF /CHF exacerbation. - [id number] is 4 - continue Lovenox for now, will switch to Apixaban on discharge. - Continue Sotalol and monitor QT. (4) HTN (hypertension) Comment: - Continue Losartan and Metoprolol. (5) Type 2 diabetes mellitus Comment: - Metformin on hold. - Continue Lispro SS. - Refer to [facility]. (6) Crohn disease Comment: - No evidence of flare at this time, not on any maintenance meds. (7) Hypothyroidism Comment: - TSH elevated - suspect sick euthyroid. - Continue Levothyroxine. (8) SHANI (obstructive sleep apnea) Comment: - Continue CPAP. (9) DVT prophylaxis Comment: - Lovenox. (10) Full code status Status and Disposition: Inpatient.
[2018-05-05] MEDS: Gabapentin CAP(*) 400 MG PO SCH (20:48)
[2018-05-05] MEDS: Gabapentin CAP(*) 100 MG PO SCH (20:55)
[2018-05-05] MEDS: traMADol TAB* 50 MG PO PRN (21:00)
[2018-05-06] MEDS: Enoxaparin(*) 150 MG/ML 1 ML SYRINGE SUBCUT SCH (01:22)
[2018-05-06] MEDS: Levothyroxine TAB* 75 MCG TAB PO SCH (05:23)
[2018-05-06] MEDS: Levothyroxine TAB* 100 MCG TAB PO SCH (05:23)
[2018-05-06 08:04] LABS: EGFR Non-African American 59.8 (>60)
[2018-05-06] MEDS: Magnesium Oxide TAB* 400 MG PO SCH (08:16)
[2018-05-06] MEDS: Metoprolol Succinate XL TAB* 50 MG PO SCH (08:16)
[2018-05-06] MEDS: OXcarbazepine TAB(*) 300 MG PO SCH (08:16)
[2018-05-06] MEDS: Insulin LISPRO* 1 UNITS UNIT SUBCUT SCH ×2 (08:17→11:55)
[2018-05-06] MEDS: Losartan TAB* 25 MG PO SCH (08:17)
[2018-05-06] MEDS: Spironolactone TAB* 25 MG PO SCH (08:17)
[2018-05-06] MEDS: Sotalol TAB* 80 MG PO SCH (08:23)
[2018-05-06] MEDS: DULoxetine DR CAP* 60 MG CAP.DR PO SCH (08:23)
[2018-05-06] MEDS ORDERED: Furosemide TAB* 20 MG PO SCH (09:00)
[2018-05-06 11:30] VITALS: BP 140/78
[2018-05-06] MEDS ORDERED: Apixaban* 5 MG TAB PO SCH (12:00)
--- NOTE | 2018-05-06 17:08 | DS ---
CC: Dr. Prince; Dr. Rai; Dr. Keith * DISCHARGE SUMMARY: DATE OF ADMISSION: 05/02/18 DATE OF DISCHARGE: 05/06/18 PRIMARY CARE PROVIDER: Dr. Prince QUANTITATIVE EQUITY HEAD: Dr. Ria ENGINEERING TECHNOLOGY INSTRUCTOR: Dr. Keith DISCHARGE DIAGNOSES: 1. Acute hypoxemic respiratory failure. 2. Acute systolic congestive heart failure exacerbation. 3. Atrial fibrillation with rapid ventricular rate. SECONDARY DIAGNOSES: 1. Crohn's disease. 2. Type 2 diabetes. 3. Supermorbid obesity with BMI of 62. 4. Uterine cancer. 5. Cervical cancer. 6. Fallopian tube cancer. 7. Lymphoma. 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 9. Status post right total knee replacement. 10. History of MRSA infection after a toe amputation. 11. Hypothyroidism. MEDICATION LIST: 1. Microgestin 1 tablet p.o. daily. 2. Metoprolol succinate 50 mg p.o. daily. 3. Cyanocobalamin 1000 mcg intramuscular mostly. 4. Magnesium oxide 800 mg p.o. b.i.d. 5. Victoza 1.2 mg subcutaneously daily. 6. Gabapentin 900 mg p.o. at bed time. 7. Losartan 25 mg p.o. daily. 8. Duloxetine 60 mg p.o. daily 9. Oxcarbazepine 300 mg p.o. daily. 10. Demeclocycline 150 mg p.o. b.i.d. 11. Metformin 1000 mg p.o. daily. 12. Lomotil 2 tablets p.o. q.i.d. as needed for diarrhea. 13. Levothyroxine 275 mcg p.o. daily. New Medications: 1. Spironolactone 25 mg p.o. daily at 4:00 p.m. 2. Sotalol 40 mg p.o. b.i.d. 3. Furosemide 10 mg p.o. daily. 4. Apixaban 5 mg p.o. b.i.d. HOSPITAL COURSE: Ms. Cevallos is a 53-year-old lady with a past medical history as stated above that presented to the emergency room with complaints of shortness of breath. For more details upon presentation, I refer to her history and physical. The patient was found to be in congestive heart failure exacerbation and she had a transthoracic echocardiogram that showed a newly depressed ejection fraction of 35 to 40% with global hypokinesis of the left ventricle, mild MR, mild TR, RSVT of 33. When compared to her prior echo from June 2017, the LV dysfunction was new. Of note, the patient was on atrial fibrillation with rapid ventricular rate and she was not aware of the rhythm. She was seen in consultation by Cardiology (Dr. Rai), and her recommendation was that for her cardiomyopathy, she agreed with Toprol XL and Cozaar and diuresis and her idea would to eventually get her own Aldactone. She just had to start low- dose sotalol and the patient stay in the hospital while we monitored her QT, but she remained in normal sinus rhythm. The patient had significant improvement of her symptoms with diuresis. Multiple conversations were held with Cardiology and it was felt that her newly depressed ejection fraction may be secondary to her atrial fibrillation, so the plan is for her to be discharged home with medications to be seen with Dr. Rai as outpatient and have a repeat echocardiogram in 6 to 8 weeks. If her EF has recovered at that time, the cause is likely the atrial fibrillation, but if her ejection fraction is too low she would require further ischemic including a stress test and/or cardiac catheterization. Risks and benefits were discussed with the patient and she is in agreement with therapy with Eliquis. She had no significant bleeding while in the hospital. She did have issues with hyponatremia in the past and she is on demeclocycline. With diuretics, her sodium ranged from 132 to 135 and it needs to be monitored as outpatient. Also of note is the fact that the patient is on control pill and this should be readdressed as outpatient considering her supermorbid obesity. As part of her workup, the patient also had a CT of the chest that showed vascular congestion, but no evidence of embolic disease. PHYSICAL EXAMINATION: Vital Signs: Temperature 97.3, heart rate 67, respiratory rate 18, oxygen saturation 98% on room air, blood pressure is 140/ 78. General: The patient is a morbidly obese lady, sitting up in the bed in no acute distress. CVS: Normal S1, S2. Regular rate and rhythm. Chest: Breath sounds bilaterally, diminished in bases. Neuro: She is alert, awake, oriented x3. Able to move all 4 extremities. DIET: Heart-healthy, consistent-carb diet. ACTIVITIES: As tolerated. DISPOSITION: To home. STATUS WHILE IN THE HOSPITAL: Inpatient. Please keep in mind that this is a summarized version of this patient's hospital stay. If you need more information, please feel free to call me at or please obtain the full medical records. TIME SPENT: Approximately 45 minutes were spent to complete this discharge. [id number] #: [id number] MTDD
[2018-05-19] MEDS ORDERED: Cyanocobalamin INJ * 1,000 MCG/ML VIAL 1 ML VIAL IM SCH (09:00)
== END 2018-05-06 13:00 | disposition home or self-care (01) | DRG 194 ==
LOC: ED 08:43 → MEDTELE 11:16 → OBSVTOIN 05-03 07:27
PROVIDERS: ADMIT Internal Medicine; ATTEND Internal Medicine
PROC: 5A09457 Assistance with Respiratory Ventilation, 24-96 Consecutive Hours, Continuous Positive Airway Pressure (ICD-10-PCS; principal; 2018-05-03)
DX: I11.0 Hypertensive heart disease with heart failure (principal); J96.01 Acute respiratory failure with hypoxia; K50.90 Crohn's disease, unspecified, without complications; I47.1 Supraventricular tachycardia; E87.1 Hypo-osmolality and hyponatremia; Z68.44 Body mass index [BMI] 60.0-69.9, adult; M19.042 Primary osteoarthritis, left hand; I50.23 Acute on chronic systolic (congestive) heart failure; I42.9 Cardiomyopathy, unspecified; E03.9 Hypothyroidism, unspecified; J44.9 Chronic obstructive pulmonary disease, unspecified; M06.9 Rheumatoid arthritis, unspecified; M19.041 Primary osteoarthritis, right hand; G43.909 Migraine, unspecified, not intractable, without status migrainosus; Z96.641 Presence of right artificial hip joint; E66.01 Morbid (severe) obesity due to excess calories; I95.9 Hypotension, unspecified; G47.33 Obstructive sleep apnea (adult) (pediatric); F32.9 Major depressive disorder, single episode, unspecified; D64.9 Anemia, unspecified; F41.9 Anxiety disorder, unspecified; I48.0 Paroxysmal atrial fibrillation; I08.1 Rheumatic disorders of both mitral and tricuspid valves; M16.12 Unilateral primary osteoarthritis, left hip; E11.42 Type 2 diabetes mellitus with diabetic polyneuropathy; Z86.718 Personal history of other venous thrombosis and embolism; Z83.6 Family history of other diseases of the respiratory system; Z82.0 Family history of epilepsy and other diseases of the nervous system; Z88.5 Allergy status to narcotic agent; Z88.2 Allergy status to sulfonamides; Z87.01 Personal history of pneumonia (recurrent); Z90.49 Acquired absence of other specified parts of digestive tract; Z86.14 Personal history of Methicillin resistant Staphylococcus aureus infection; Z82.49 Family history of ischemic heart disease and other diseases of the circulatory system; Z83.3 Family history of diabetes mellitus; Z72.89 Other problems related to lifestyle; Z89.422 Acquired absence of other left toe(s); Z99.81 Dependence on supplemental oxygen; Z85.41 Personal history of malignant neoplasm of cervix uteri; Z79.84 Long term (current) use of oral hypoglycemic drugs
CPT/HCPCS: 36415; 71046; 71275; 80048; 80053; 82565; 83735; 83880; 84439; 84443; 84479; 84484; 84520; 85025; 85610; 85730; 86140; 87641; 93005; 93306; 94660; 99283; A9270-GY; G0378; J1160; J1644; J1650; J1940; J3475; Q9967